=== PATIENT | female | born 1995 | race Hispanic/Latino ===

== ENCOUNTER 2019-04-09 01:34 | Emergency (ER) | payer SELFPAY ==
--- OUTSIDE RECORDS SUMMARY | 2019-04-09 01:36 | XMS REPORT ---
:1995 [facility] [address] [place] [address] Care Team Providers Name Role Phone Unavailable Unavailable Unavailable Problems This patient has no known problems. Allergies, Adverse Reactions, Alerts This patient has no known allergies or adverse reactions. Medications This patient has no known medications.
[2019-04-09 02:21] LABS: Urine Bacteria <20 /HPF (<20); Urine Culture Reflex Order NOT NEEDED; Urine RBC <5 /HPF (NONE SEEN)
[2019-04-09 02:22] LABS: Urine Blood 3+ (NEG); Urine Glucose NEGATIVE (NEG); Urine Protein NEGATIVE (NEG); Urine Specific Gravity <1.005 (1.005-1.030); Urine pH 6.5 (5.0-7.0)
--- NOTE | 2019-04-09 02:38 | EDPHYS ---
Physician Documentation [facility] Name: Barbara Yin Age: 23 yrs Sex: Female : 1995 Arrival Date: 04/09/2019 Time: 01:36 Bed 18 Private MD: ED Physician Adan Marie HPI: 04/09 02:00 This 23 yrs old Female presents to ER via Unassigned with complaints of Pain la1 With Urination. 02:00 Onset: The symptoms/episode began/occurred yesterday. Associated signs and symptoms: la1 Pertinent positives: dysuria, Pertinent negatives: congestion, constipation, cough, fever. Modifying factors: The patient symptoms are alleviated by nothing, the patient symptoms are aggravated by urinating. The patient has not recently seen a physician. pt reports urinary urgency and discomfort. 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 - Social history:: Smoking status: Patient/guardian denies using tobacco, never smoked. - Ebola Screening: : No symptoms or risks identified at this time. ROS: 02:02 Constitutional: Negative for fever, chills, and weight loss, Eyes: Negative for injury, la1 pain, redness, and discharge, ENT: Negative for injury, pain, and discharge, Neck: Negative for injury, pain, and swelling, Cardiovascular: Negative for chest pain, palpitations, and edema, Respiratory: Negative for shortness of breath, cough, wheezing, and pleuritic chest pain, Abdomen/GI: Negative for abdominal pain, nausea, vomiting, diarrhea, and constipation, Back: Negative for injury and pain, MS/Extremity: Negative for injury and deformity. 02:02 : Positive for urinary symptoms. Exam: 02:03 Constitutional: This is a well developed, well nourished patient who is awake, alert, la1 and in no acute distress. Head/Face: Normocephalic, atraumatic. Eyes: Pupils equal round and reactive to light, extra-ocular motions intact. Lids and lashes normal. Conjunctiva and sclera are non-icteric and not injected. Cornea within normal limits. Periorbital areas with no swelling, redness, or edema. Cardiovascular: Regular rate and rhythm with a normal S1 and S2. No gallops, murmurs, or rubs. Normal PMI, no JVD. No pulse deficits. Respiratory: Lungs have equal breath sounds bilaterally, clear to auscultation . No rales, rhonchi or wheezes noted. No increased work of breathing, no retractions or nasal flaring. Abdomen/GI: Soft, non-tender, with normal bowel sounds. No distension or tympany. No guarding or rebound. No evidence of tenderness throughout. Back: No spinal tenderness. No costovertebral tenderness. Full range of motion. Vital Signs: 01:45 BP 117 / 67; Pulse 83; Resp 17 S; Temp 98.2(O); Pulse Ox 98% on R/A; Weight 81.65 kg cc3 (R); Height 5 ft. 5 in. (165.10 cm) (R); Pain 6/10; 02:35 BP 115 / 64; Pulse 85; Resp 16 S; Pulse Ox 98% on R/A; cc3 01:45 Body Mass Index 29.95 (81.65 kg, 165.10 cm) cc3 MDM: 02:00 Patient medically screened. la1 02:39 Data reviewed: vital signs, nurses notes, lab test result(s), and as a result, I will la1 discharge patient. Data interpreted: Pulse oximetry: on room air is 98 %. Interpretation: normal. Counseling: I had a detailed discussion with the patient and/or guardian regarding: the historical points, exam findings, and any diagnostic results supporting the discharge/admit diagnosis, lab results, radiology results, the need for outpatient follow up, a family practitioner. 04/09 01:57 Order name: Urine Dipstick--Ancillary (enter results); Complete Time: 02:37 bb 04/09 01:58 Order name: Test, Serum; Complete Time: 02:37 bb 04/09 01:39 Order name: Urine Dipstick-Ancillary (obtain specimen); Complete Time: 01:58 la1 04/09 01:39 Order name: Urine Test (obtain specimen); Complete Time: 01:58 la1 04/09 01:58 Order name: Urine Microscopic Only; Complete Time: 02:37 la1 Administered Medications: No medications were administered Disposition: 04/09/19 02:38 Discharged to Home. Impression: Acute cystitis. - Condition is Stable. - Discharge Instructions: Dysuria, Urinary Tract Infection, Adult. - Prescriptions for Pyridium 200 mg Oral Tablet - take 1 tablet by ORAL route every 8 hours for 3 days; 9 tablet. Macrobid 100 mg Oral Capsule - take 1 capsule by ORAL route every 12 hours for 7 days; 14 capsule. - Medication Reconciliation Form, Thank You Letter, Antibiotic Education, Work release form form. - Follow up: Private Physician; When: 2 - 3 days; Reason: Recheck today's complaints, Re-evaluation by your physician. - Problem is new. - Symptoms have improved. Addendum: 04/10/2019 09:28 Co-signature as Attending Physician, Adan Marie MD I agree with the assessment and c leyva plan of care. Signatures: Dispatcher [employer] Adan Kearney MD MD cha Attema, Lee, DRIP MOLDER-C DRIP MOLDER-Cla1 Sangita Musa cc3 Corrections: (The following items were deleted from the chart) 04/09 03:08 02:38 04/09/2019 02:38 Discharged to Home. Impression: Acute cystitis. Condition is cc3 Stable. Forms are Medication Reconciliation Form, Thank You Letter, Antibiotic Education, Prescription Opioid Use. Follow up: Private Physician; When: 2 - 3 days; Reason: Recheck today's complaints, Re-evaluation by your physician. Problem is new. Symptoms have improved. la1
--- NOTE | 2019-04-09 02:38 | ER ---
Nurse's Notes [facility] Name: Barbara Yin Age: 23 yrs Sex: Female : 1995 Arrival Date: 04/09/2019 Time: 01:36 Bed 18 Private MD: Diagnosis: Acute cystitis Presentation: 04/09 01:45 Presenting complaint: Patient states: "Since Wednesday morning, I started to have burning cc3 feeling with urination and frequency of urination". Transition of care: patient was not received from another setting of care. Onset of symptoms was April 07, 2019. Risk Assessment: Do you want to hurt yourself or someone else? Patient reports no desire to harm self or others. Initial Sepsis Screen: Does the patient meet any 2 criteria? No. Patient's initial sepsis screen is negative. Does the patient have a suspected source of infection? Yes: Dysuria/Frequency/Urgency/UTI. Care prior to arrival: None. 01:45 Method Of Arrival: Ambulatory cc3 01:45 Acuity: CYNDIE 4 cc3 Triage Assessment: 01:45 General: Appears in no apparent distress. comfortable, Behavior is calm, cooperative, cc3 appropriate for age. Pain: Complains of pain in burning with urination. 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 - Social history:: Smoking status: Patient/guardian denies using tobacco, never smoked. - Ebola Screening: : No symptoms or risks identified at this time. Screenin:45 Abuse screen: Denies threats or abuse. Denies injuries from another. Nutritional cc3 screening: No deficits noted. Tuberculosis screening: No symptoms or risk factors identified. Fall Risk Ambulatory Aid- None/Bed Rest/Nurse Assist (0 pts). Gait- Normal/Bed Rest/Wheelchair (0 pts) Mental Status- Oriented to own ability (0 pts). Assessment: 03:00 Reassessment: Patient appears in no apparent distress at this time. Patient and/or cc3 family updated on plan of care and expected duration. Pain level reassessed. Patient is alert, oriented x 3, equal unlabored respirations, skin warm/dry/pink. OFFICE CLIN ASST Giovana discharged the patient home with prescriptions given. No IV cannula in situ. Patient left ER vitally stable and ambulatory. No valuables left in the patient's room. Patient states feeling better. Patient states symptoms have improved. Vital Signs: 01:45 BP 117 / 67; Pulse 83; Resp 17 S; Temp 98.2(O); Pulse Ox 98% on R/A; Weight 81.65 kg cc3 (R); Height 5 ft. 5 in. (165.10 cm) (R); Pain 6/10; 02:35 BP 115 / 64; Pulse 85; Resp 16 S; Pulse Ox 98% on R/A; cc3 01:45 Body Mass Index 29.95 (81.65 kg, 165.10 cm) cc3 ED Course: 01:36 Patient arrived in ED. cl3 01:37 Mukesh Akhtar [facility]-C [facility]. la1 01:37 Adan Marie MD is Attending Physician. la1 01:45 Sangita Musa is Primary Nurse. cc3 01:45 Patient has correct armband on for positive identification. Bed in low position. Call cc3 light in reach. Side rails up X2. Pulse ox on. NIBP on. 01:45 Arm band placed on right wrist. Patient notified of wait time. cc3 02:08 Initial lab(s) drawn, by me, sent to lab. Urine collected:. kj1 02:17 Triage completed. cc3 03:00 No provider procedures requiring assistance completed. Patient did not have IV access cc3 during this emergency room visit. Administered Medications: No medications were administered Outcome: 02:38 Discharge ordered by . la1 03:00 Discharged to home ambulatory. cc3 03:00 Condition: stable 03:00 Discharge instructions given to patient, Instructed on discharge instructions, follow up and referral plans. medication usage, Demonstrated understanding of instructions, follow-up care, medications, Prescriptions given X 2. 03:08 Patient left the ED. cc3 Signatures: Mukesh Akhtar FNP-C FNP-Cla1 Sangita Musa cc3 Charmaine Cisneros kj1 Sharath Grimes cl3
[2019-04-09 05:51] VITALS: BP 117/67; TEMP 98.2; O2SAT 98
== END 2019-04-09 03:08 | disposition home or self-care (01) ==
LOC: ER 01:34
DX: N30.00 Acute cystitis without hematuria (principal)
CPT/HCPCS: 36415; 81003; 81015; 84703; 99283

== ENCOUNTER 2019-10-12 12:11 | Emergency (ER) | payer SELFPAY ==
--- OUTSIDE RECORDS SUMMARY | 2019-10-12 12:38 | XMS REPORT | Continuity of Care Document ---
:1995 Author Organization [facility] t Address [address] [place] [address] [address] [place] [address] Care Team Providers Name Role Phone Unavailable Unavailable Unavailable Problems This patient has no known problems. Allergies, Adverse Reactions, Alerts This patient has no known allergies or adverse reactions. Medications This patient has no known medications. Procedures This patient has no known procedures. Results This patient has no known results.
--- NOTE | 2019-10-12 12:39 | ER ---
Nurse's Notes [facility] Name: Barbara Yin Age: 24 yrs Sex: Female : 1995 Arrival Date: 10/12/2019 Time: 12:12 Bed 11 Private MD: Diagnosis: Conjunctivitis Presentation: 10/11 12:20 Chief complaint: Left eye redness and burning upon waking today. Denies injury. ll1 Coronavirus screen: Proceed with normal triage. Ebola Screen: No symptoms or risks identified at this time. Initial Sepsis Screen: Does the patient meet any 2 criteria? No. Patient's initial sepsis screen is negative. Does the patient have a suspected source of infection? No. Patient's initial sepsis screen is negative. Risk Assessment: Do you want to hurt yourself or someone else? Patient reports no desire to harm self or others. Onset of symptoms was October 12, 2019. 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 - Social history:: Smoking status: Patient denies any tobacco usage or history of. Screenin:27 Abuse screen: Denies threats or abuse. Denies injuries from another. Nutritional hb screening: No deficits noted. Tuberculosis screening: No symptoms or risk factors identified. Fall Risk None identified. Vital Signs: 12:20 BP 128 / 75; Pulse 88; Resp 16; Temp 97.9; Pulse Ox 100% on R/A; Weight 86.18 kg; ll1 Height 5 ft. 5 in. (165.10 cm); Pain 4/10; 12:20 Body Mass Index 31.62 (86.18 kg, 165.10 cm) ll1 ED Course: 12:12 Patient arrived in ED. fj1 12:19 Esperanza Cisneros [facility]. kb 12:19 Kevan Fry MD is Attending Physician. kb 12:21 Triage completed. ll1 12:22 Arm band placed on. ll1 13:27 Patient has correct armband on for positive identification. hb 13:27 No provider procedures requiring assistance completed. Patient did not have IV access hb during this emergency room visit. Administered Medications: No medications were administered Outcome: 12:38 Discharge ordered by . duarte 13:27 Discharged to home ambulatory. hb 13:27 Condition: stable 13:27 Discharge instructions given to patient, Instructed on discharge instructions, follow up and referral plans. medication usage, Demonstrated understanding of instructions, follow-up care, medications, Prescriptions given X 1. 13:27 Patient left the ED. hb Signatures: Esperanza Cisneros, SHOE DRESSER-C SHOE DRESSER-Ckb Ita Conde, RN RN Samir Macario fj1 Nisha Grimes RN RN ll1
--- NOTE | 2019-10-12 12:39 | EDPHYS ---
Physician Documentation [facility] Name: Barbara Yin Age: 24 yrs Sex: Female : 1995 Arrival Date: 10/12/2019 Time: 12:12 Bed 11 Private MD: ED Physician Kevan Fry HPI: 10/11 12:37 This 24 yrs old Female presents to ER via Ambulatory with complaints of kb Redness of Eye. 12:37 The patient is experiencing matting or discharge, pain, redness, The patient sustained kb None. to the left eye, caused by an unknown mechanism. Onset: The symptoms/episode began/occurred 3 day(s) ago. Duration: the symptoms are continuous. Aggravated by nothing. Alleviated by nothing. Associated signs and symptoms: Pertinent positives: None. Patient does not utilize any form of vision correction. Severity of symptoms: At their worst the symptoms were mild moderate in the emergency department the symptoms are unchanged. The patient has not experienced similar symptoms in the past. The patient has not recently seen a physician. 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 - Social history:: Smoking status: Patient denies any tobacco usage or history of. ROS: 12:36 Constitutional: Negative for fever, chills, and weight loss, ENT: Negative for injury, kb pain, and discharge, Cardiovascular: Negative for chest pain, palpitations, and edema, Respiratory: Negative for shortness of breath, cough, wheezing, and pleuritic chest pain, Abdomen/GI: Negative for abdominal pain, nausea, vomiting, diarrhea, and constipation, MS/Extremity: Negative for injury and deformity, Skin: Negative for injury, rash, and discoloration, Neuro: Negative for headache, weakness, numbness, tingling, and seizure. 12:36 Eyes: Positive for discharge, pain, redness. Exam: 12:36 Constitutional: This is a well developed, well nourished patient who is awake, alert, kb and in no acute distress. Head/Face: Normocephalic, atraumatic. ENT: Nares patent. No nasal discharge, no septal abnormalities noted. Tympanic membranes are normal and external auditory canals are clear. Oropharynx with no redness, swelling, or masses, exudates, or evidence of obstruction, uvula midline. Mucous membranes moist. Neck: Trachea midline, no thyromegaly or masses palpated, and no cervical lymphadenopathy. Supple, full range of motion without nuchal rigidity, or vertebral point tenderness. No Meningismus. Chest/axilla: Normal chest wall appearance and motion. Nontender with no deformity. No lesions are appreciated. Cardiovascular: Regular rate and rhythm with a normal S1 and S2. No gallops, murmurs, or rubs. Normal PMI, no JVD. No pulse deficits. Respiratory: Lungs have equal breath sounds bilaterally, clear to auscultation and percussion. No rales, rhonchi or wheezes noted. No increased work of breathing, no retractions or nasal flaring. Abdomen/GI: Soft, non-tender, with normal bowel sounds. No distension or tympany. No guarding or rebound. No evidence of tenderness throughout. Skin: Warm, dry with normal turgor. Normal color with no rashes, no lesions, and no evidence of cellulitis. MS/ Extremity: Pulses equal, no cyanosis. Neurovascular intact. Full, normal range of motion. Neuro: Awake and alert, GCS 15, oriented to person, place, time, and situation. Cranial nerves II-XII grossly intact. Motor strength 5/5 in all extremities. Sensory grossly intact. Cerebellar exam normal. Normal gait. 12:36 Eyes: Periorbital structures: appear normal, Pupils: equal, round, and reactive to light and accomodation, Extraocular movements: intact throughout, Conjunctiva: exudate, in the left eye, injected, in the left eye. Vital Signs: 12:20 BP 128 / 75; Pulse 88; Resp 16; Temp 97.9; Pulse Ox 100% on R/A; Weight 86.18 kg; ll1 Height 5 ft. 5 in. (165.10 cm); Pain 4/10; 12:20 Body Mass Index 31.62 (86.18 kg, 165.10 cm) ll1 MDM: 12:28 Patient medically screened. kb 12:36 Data reviewed: vital signs, nurses notes. Data interpreted: Pulse oximetry: on room air kb is 100 %. Interpretation: normal. Counseling: I had a detailed discussion with the patient and/or guardian regarding: the historical points, exam findings, and any diagnostic results supporting the discharge/admit diagnosis, the need for outpatient follow up, an opthalmologist, to return to the emergency department if symptoms worsen or persist or if there are any questions or concerns that arise at home. Administered Medications: No medications were administered Disposition: 18:44 Co-signature as Attending Physician, Kevan Fry MD I agree with the assessment and kdr plan of care. Disposition: 10/12/19 12:38 Discharged to Home. Impression: Conjunctivitis. - Condition is Stable. - Discharge Instructions: Bacterial Conjunctivitis, [id number]. - Prescriptions for Erythromycin 5 mg/gram (0.5 %) Ophthalmic Ointment - apply 1 centimeter by OPHTHALMIC route 2-3 times daily for 7 days; 1 tube. - Medication Reconciliation Form, Thank You Letter, Antibiotic Education, Prescription Opioid Use form. - Follow up: Emergency Department; When: As needed; Reason: Worsening of condition. Follow up: Private Physician; When: 2 - 3 days; Reason: Recheck today's complaints, Continuance of care, Re-evaluation by your physician. Signatures: Esperanza Cisneros, TYING MACHINE OPERATOR-C TYING MACHINE OPERATOR-Rylanb Kevan Fry MD MD [facility] Ita Conde, ELVA RN Nisha Grimes RN RN ll1 Corrections: (The following items were deleted from the chart) 13:27 12:38 10/12/2019 12:38 Discharged to Home. Impression: Conjunctivitis. Condition is hb Stable. Forms are Medication Reconciliation Form, Thank You Letter, Antibiotic Education, Prescription Opioid Use. Follow up: Emergency Department; When: As needed; Reason: Worsening of condition. Follow up: Private Physician; When: 2 - 3 days; Reason: Recheck today's complaints, Continuance of care, Re-evaluation by your physician. kb
[2019-10-12 13:34] VITALS: BP 128/75; TEMP 97.9; O2SAT 100
== END 2019-10-12 13:27 | disposition home or self-care (01) ==
LOC: ER 12:11
DX: H10.9 Unspecified conjunctivitis (principal)
CPT/HCPCS: 99282

== ENCOUNTER 2022-12-14 10:22 | Emergency (ER) | payer OTHER, SELFPAY ==
--- OUTSIDE RECORDS SUMMARY | 2022-12-14 10:30 | XMS REPORT | Continuity of Care Document ---
:1995 Author Organization [facility] t Address [address] [place] [address] Care Team Providers Name Role Phone LISHA EDUARDO Primary Care Physician Unavailable BLAYNE GALINDO Attending Clinician Unavailable LISHA EDUARDO Attending Clinician Unavailable BEATRIZ ANGLIN Attending Clinician Unavailable Nurse, [facility] Attending Clinician Unavailable Beatriz Anglin PA-C Attending Clinician Blayne Galindo MD Attending Clinician Doctor Unassigned, [place] Attending Clinician Unavailable Pob, [facility] Main Attending Clinician Unavailable JANY LOMBARDO Attending Clinician Unavailable JANY LOMBARDO Attending Clinician Unavailable Sonia Robertson MA Attending Clinician Unavailable 2, [facility] Lab Attending Clinician Unavailable Ultrasound, [facility] Mf Attending Clinician Unavailable Yong Ye MD, [place] Attending Clinician [phone] SYDNEY ELLINGTON Attending Clinician Unavailable Ultrasound, [facility] Attending Clinician Unavailable Merritt Bhakta MD Attending Clinician MERRITT BHAKTA Attending Clinician Unavailable MERRITT BHAKTA Attending Clinician Unavailable 2, [facility] Usg Room Attending Clinician Unavailable Di Ely MD Attending Clinician [phone] DI ELY Attending Clinician Unavailable Lisha Chen Attending Clinician [phone] Case RNLisbet Attending Clinician Unavailable BRITT BROWN Attending Clinician Unavailable Britt Chavez Attending Clinician BLAYNE GALINDO Admitting Clinician Unavailable Blayne Galindo MD Admitting Clinician Payers Payer Name Policy Type Policy Number Effective Date Expiration Date [facility] [id number] 2021 CHOICE [place] STAR 00:00:00 MEDICAID PENDING PENDING 2021 00:00:00 MEDICAID [facility] [place] [facility] [id number] 2021 00:00:00 Problems Condition Condition Condition Status Onset Resolution Last Treating Co mments Source Name Details Category Date Date Treatment Clinician Date Liveborn Liveborn Disease Active Unive rs infant, of , of 2-28 it y of ferreira ferreira 00:00: Bernard s , , 00 Me dical born in born in [facility] by vaginal by vaginal delivery delivery Uterine Uterine Disease Active Univers contractio contractio 2-25 it y of ns ns 00:00: [address] [place] [id number] 39 weeks 39 weeks Disease Active Unive rs gestation gestation 2-25 ity of of of 00:00: [place] [address] [facility] Low back Low back Disease Active 2021-05 Unive rs pain pain 2-21 ity of during during 00:00: [place] 00 [facility] in third in third Branch trimester trimester Supervisio Supervisio Disease Active U nivers n of high n of high 7-19 ity of risk risk 00:00: [place] , , 00 Me dical antepartum antepartum Br anch Primigravi Primigravi Disease Active U nivers da in da in 7-19 ity of first first 00:00: [place] trimester trimester 00 [facility] Nausea Nausea Disease Active Univers without without 7-19 ity of vomiting vomiting 00:00: [address] Obesity in Obesity in Disease Active U nivers 7-19 ity of 00:00: [address] Obesity Obesity Disease Active Univers (BMI (BMI 7-19 ity of 30-39.9) 30-39.9) 00:00: [address] Chlamydia Chlamydia Disease Active Uni vers 6-16 ity of 00:00: [address] Obesity Obesity Disease Active Univers (BMI (BMI 6-14 ity of 30.0-34.9) 30.0-34.9) [place] 00 [place] Encounter Encounter Disease Active Uni vers for other for other 2-21 ity of general general 00:00: [place] counseling counseling 00 Me dical or advice or advice Bran ch on on contracept contracept ion ion Allergies, Adverse Reactions, Alerts Allergy Allergy Status Severity Reaction(s) Onset Inactive Treating Comm ents Source Name Type Date Date Clinician NO KNOWN Drug Active Univers ALLERGIE Class ity of S [facility] Social History Social Habit Start Date Stop Date Quantity Comments Source ASSERTION 2021-10-13 [facility] 00:00:00 [facility] Exposure to 2022-09-20 2022-09-30 Not sure [facility] SARS-CoV-2 00:00:00 10:17:00 [facility] (event) [place] Alcohol intake 2022-09-30 2022-09-30 0 /d [facility] 00:00:00 00:00:00 [facility] Tobacco use and 2021-11-18 2021-11-18 Smokeless tobacco Un iversity of exposure 00:00:00 00:00:00 non-user [facility] Sex Assigned At [birth year] Universit y of 00:00:00 00:00:00 [facility] Smoking Status Start Date Stop Date Source Never smoked tobacco [facility] Medications Ordered Filled Start Stop Current Ordering Indication Dosage Frequency Signature Comments Components Source Medication Medication Date Date Medication? Clinician (SIG) Name Name medroxyPROG 2022- No [id number] 150mg Univers ESTERone 09-30 ity of (DEPO-PROVE 16:30: 15:51 [place] RA) syringe 00 :00 Medical 150 mg Branch medroxyPROG 2022- No [id number] 150mg 150 mg, Univers ESTERone 09-30 Intramuscu ity of (DEPO-PROVE 16:30: 15:51 lar, ONCE, [place] RA) syringe 00 :00 1 dose, On Me dical 150 mg Wed Branch 09/30/22 at 1130, Routine medroxyPROG Yes 150mg 150 mg, Un omar ESTERone 3-01 Intramuscu ity o f (DEPO-PROVE 17:30: lar, [place] RA) 00 [id number], Medical injection First dose Bran ch 150 mg on 07/01/22 at 1130, Until Discontinu ed, Routine Yes [id number] 1{tbl} Take 1 Univers vitamin 3-01 tablet by ity of w/FA tablet 00:00: mouth in [place] 00 the Medical morning. Branch docusate Yes [id number] 200mg Take 2 U nivers 100 mg 3-01 capsules ity of capsule 00:00: by mouth [place] 00 once daily Medical as needed Branch for Constipati on. ferrous Yes [id number] 325mg Take 1 [place] o[place] sulfate 325 3-01 tablet by ity of mg (65 mg 00:00: [place] iron[place] 00 the Medical tablet morning Branch and 1 tablet in the evening. ibuprofen Yes [id number] 600mg Take 1 Univers 600 mg 3-01 tablet by ity of tablet 00:00: mouth [place] 00 every 6 Medical (six) Branch hours as needed (Pain). Take with food or milk. Yes [id number] 1{tbl} Take 1 Univers vitamin 3-01 tablet by ity of w/FA tablet 00:00: mouth in [place] 00 the Medical morning. Branch docusate Yes [id number] 200mg Take 2 U nivers 100 mg 3-01 capsules ity of capsule 00:00: by mouth [place] 00 once daily Medical as needed Branch for Constipati on. ferrous Yes [id number] 325mg Take 1 [place] o[place] sulfate 325 3-01 tablet by ity of mg (65 mg 00:00: [place] iron[place] 00 the Medical tablet morning Branch and 1 tablet in the evening. ibuprofen Yes [id number] 600mg Take 1 Univers 600 mg 3-01 tablet by ity of tablet 00:00: mouth [place] 00 every 6 Medical (six) Branch hours as needed (Pain). Take with food or milk. 0 Yes [id number] 1{tbl} Take 1 Univers vitamin 3-01 tablet by ity of w/FA tablet 00:00: mouth in [place] 00 the Medical morning. Branch docusate 0 Yes [id number] 200mg Take 2 U nivers 100 mg 3-01 capsules ity of capsule 00:00: by mouth [place] 00 once daily Medical as needed Branch for Constipati on. ferrous 0 Yes [id number] 325mg Take 1 [place] o[place] sulfate 325 3-01 tablet by ity of mg (65 mg 00:00: [place] iron[place] 00 the Medical tablet morning Branch and 1 tablet in the evening. ibuprofen Yes [id number] 600mg Take 1 Univers 600 mg 3-01 tablet by ity of tablet 00:00: mouth [place] 00 every 6 Medical (six) Branch hours as needed (Pain). Take with food or milk. 0 Yes [id number] 1{tbl} Take 1 Univers vitamin 3-01 tablet by ity of w/FA tablet 00:00: mouth in [place] 00 the Medical morning. Branch docusate Yes [id number] 200mg Take 2 U nivers 100 mg 3-01 capsules ity of capsule 00:00: by mouth [place] 00 once daily Medical as needed Branch for Constipati on. ferrous 2022-0 Yes [id number] 325mg Take 1 [place] sulfate 325 3-01 tablet by ity of mg (65 mg 00:00: [place] iron[place] 00 the Medical tablet morning Branch and 1 tablet in the evening. ibuprofen 0 Yes [id number] 600mg Take 1 Univers 600 mg 3-01 tablet by ity of tablet 00:00: mouth [place] 00 every 6 Medical (six) Branch hours as needed (Pain). Take with food or milk. 2022-0 Yes [id number] 1{tbl} Take 1 Univers vitamin 3-01 tablet by ity of w/FA tablet 00:00: mouth in [place] 00 the Medical morning. Branch docusate Yes [id number] 200mg Take 2 U nivers 100 mg 3-01 capsules ity of capsule 00:00: by mouth [place] 00 once daily Medical as needed Branch for Constipati on. ferrous 2022-0 Yes [id number] 325mg Take 1 [place] sulfate 325 3-01 tablet by ity of mg (65 mg 00:00: [place] iron[place] 00 the Medical tablet morning Branch and 1 tablet in the evening. ibuprofen 0 Yes [id number] 600mg Take 1 Univers 600 mg 3-01 tablet by ity of tablet 00:00: mouth [place] 00 every 6 Medical (six) Branch hours as needed (Pain). Take with food or milk. 0 Yes [id number] 1{tbl} Take 1 Univers vitamin 3-01 tablet by ity of w/FA tablet 00:00: mouth in [place] 00 the Medical morning. Branch docusate Yes [id number] 200mg Take 2 U nivers 100 mg 3-01 capsules ity of capsule 00:00: by mouth [place] 00 once daily Medical as needed Branch for Constipati on. ferrous 0 Yes [id number] 325mg Take 1 [place] o[place] sulfate 325 3-01 tablet by ity of mg (65 mg 00:00: [place] iron[place] 00 the Medical tablet morning Branch and 1 tablet in the evening. ibuprofen 0 Yes [id number] 600mg Take 1 Univers 600 mg 3-01 tablet by ity of tablet 00:00: mouth [place] 00 every 6 Medical (six) Branch hours as needed (Pain). Take with food or milk. 2022-0 Yes [id number] 1{tbl} Take 1 Univers vitamin 3-01 tablet by ity of w/FA tablet 00:00: mouth in [place] 00 the Medical morning. Branch docusate 0 Yes [id number] 200mg Take 2 U nivers 100 mg 3-01 capsules ity of capsule 00:00: by mouth [place] 00 once daily Medical as needed Branch for Constipati on. ferrous 2022-0 Yes [id number] 325mg Take 1 Un o[place] sulfate 325 3-01 tablet by ity of mg (65 mg 00:00: [place] iron[place] 00 the Medical tablet morning Branch and 1 tablet in the evening. ibuprofen Yes [id number] 600mg Take 1 Univers 600 mg 3-01 tablet by ity of tablet 00:00: mouth [place] 00 every 6 Medical (six) Branch hours as needed (Pain). Take with food or milk. rho(D) 0 Yes 300ug 300 mcg, Univer s immune 06-30 Intramuscu ity of globulin 17:06: lar, ONCE, [place] (RHOGAM) 47 For 1 Medical syringe 300 dose, Branch mcg Conditiona l, Routine witch [place] Yes Topical, Un omar (TUCKS) 50 2-28 Q4HPRN, ity of % topical 17:06: [place] pad 41 on [facility] 06/30/22 at Branch 1106, Until Discontinu ed, Routine, rectal/hem orrhoidal pain HYDROcodone 0 Yes 1{tbl} 1 tablet, Univers -acetaminop 06-30 Oral, ity of hen (NORCO 17:06: Q6HPRN, [place] 5) 5-325 mg 41 Starting Medi celine tablet 1 on [facility] tablet 06/30/22 at 1106, Until Discontinu ed, Routine, Pain (scale 7-10) ibuprofen 0 Yes 600mg 600 mg, Univ ers (IBU) 06-30 Oral, ity of tablet 600 17:06: Q6HPRN, [place] mg 41 Starting Medical on [facility] Branch 06/30/22 at 1106, Until Discontinu ed, Routine, Pain (scale 4-6) acetaminoph 0 Yes 650mg 650 mg, Un omar en 06-30 Oral, ity of (TYLENOL) 17:06: Q6HPRN, [place] tablet 650 41 Starting Medic al mg on [facility] 06/30/22 at 1106, Until Discontinu ed, Routine, Pain (scale 1-3) diphenhydrA 0 Yes 25mg 25 mg, Univ ers MINE 06-30 Oral, ity of (BENADRYL) 17:06: Q6HPRN, [place] tablet 25 41 Starting Medica l mg on [facility] 06/30/22 at 1106, Until Discontinu ed, Routine, Sleep, Itching ondansetron 0 Yes 4mg 4 mg, Slow Univers (ZOFRAN 06-30 IV Push, ity of (PF)) 17:06: Q8HPRN, [place] injection 4 41 Starting Medi celine mg on 06/30/22 at 1106, Until Discontinu ed, Routine, Nausea and Vomiting (N/V) simethicone 2022-0 Yes 160mg 160 mg, Un omar (GAS RELIEF 06-30 Oral, ity of (SIMETHICON 17:06: PC+HSPRN, [place] E)) 41 Starting Medical chewable on Wed tablet 160 06/30/22 at mg 1106, Until Discontinu ed, Routine, Gas docusate Yes 200mg 200 mg, Unive rs (COLACE) 06-30 Oral, ity of capsule 200 17:06: QDAILYPRN, [place] mg 41 Starting Medical on Wed06/30/22 at 1106, Until Discontinu ed, Routine, Constipati on magnesium Yes 30mL 30 mL, Univer s hydroxide 06-30 Oral, ity of (MILK OF 17:06: QDAILYPRN, [place] MAGNESIA) 41 Starting Medica l 400 mg/5 mL on Wed [place] suspension 06/30/22 at 30 mL 1106, Until Discontinu ed, Routine, Constipati on benzocaine- 0 Yes Topical, Un omar menthol 06-30 PRN, ity of (DERMOPLAST 17:06: Starting [place] ) 20-0.5 % 41 on Medical topical 06/30/22 at Branch spray 1106, Until Discontinu ed, Routine, Perineum discomfort oxytocin 2022- No 2mU/min at 2-40 Un omar (PITOCIN) 06-30- mL/hr, IV ity of 30 units in 11:00: 17:06 Infusion, [place] NS 500 mL 00 :44 TITRATE, Medica l IV infusion Starting Bran ch on Wed06/30/22 at 0500, Until Wed06/30/22 at 1106, FABRICE misoprostol 2022- No 25ug 25 mcg, Un omar (CYTOTEC) 06-30 Oral, ity of quarter-tab 06:15: 06:56 ONCE, 1 [place] let 25 mcg 00 :00 dose, On Medic al Tue Branch 06/30/22 at 0015, Routine FENTanyl PF 2022- No 100ug 100 mcg, Univers (SUBLIMAZE 06-30 Slow IV ity o f (PF)) 06:09: 17:06 Push, [place] injection 34 :44 Q1HPRN, Medical 100 mcg Starting Branch on Wed06/30/22 at 0009, Until Wed06/30/22 at 1106, Routine, contractio n pain without an epidural and SVE < 8 cm and Cat I strip [id number] IV 2022- No 1000mL at 1-125 U nivers infusion 06-30 mL/hr, IV ity o f 1,000 mL 06:09: 17:06 Infusion, [place] 34 :44 TITRATE, Medical Starting Branch on Wed06/30/22 at 0009, Until Wed06/30/22 at 1106, Routine cephALEXin 2022- No [id number] 500mg Take 1 Univers 500 mg 2-22 06- capsule by ity of capsule 00:00: 05:59 mouth 4 [place] 00 :00 (four) Medical times Branch daily for 7 days. cephALEXin 2022-0 2022- No [id number] 500mg Take 1 Univers 500 mg 2-20 - capsule by ity of capsule 00:00: 05:59 mouth 4 [place] 00 :00 (four) Medical times Branch daily for 7 days. cephALEXin 2022-0 2022- No [id number] 500mg Take 1 Univers 500 mg 2-20 - capsule by ity of capsule 00:00: 05:59 mouth 4 [place] 00 :00 (four) Medical times Branch daily for 7 days. cephALEXin 2022-0 3- No [id number] 500mg Take 1 Univers 500 mg 2-20 - capsule by ity of capsule 00:00: 05:59 mouth 4 [place] 00 :00 (four) Medical times Branch daily for 7 days. cephALEXin 2022-0 2022- No [id number] 500mg Take 1 Univers 500 mg 2-20 - capsule by ity of capsule 00:00: 05:59 mouth 4 [place] 00 :00 (four) Medical times Branch daily for 7 days. cephALEXin 2022- No [id number] 500mg Take 1 Univers 500 mg 06-22 capsule by ity of capsule 00:00: 05:59 mouth 4 [place] 00 :00 (four) [facility] daily for 7 days. cephALEXin 2022- No [id number] 500mg Take 1 Univers 500 mg 06-22 capsule by ity of capsule 00:00: 05:59 mouth 4 [place] 00 :00 (four) [facility] daily for 7 days. cefTRIAXone 2022- No [id number] 500mg Univers (ROCEPHIN) 06-17 ity of injection 20:32: 20:33 [place] 500 mg 00 :00 [facility] cefTRIAXone 2022- No [id number] 500mg 500 mg, Univers (ROCEPHIN) 06-17 Intramuscu it y of injection 20:32: 20:33 [place], ONCE, [place] 500 mg 00 :00 1 dose, On [facility] Wed Branch 06/17/22 at 1445, FABRICE
Re ason for Anti-Infec tive: Documented Infection< br>Documen akash Infection Site: Other
O ther site: Gonorrhea< br>Dura tion of Therapy: Other (see Comments) cefTRIAXone 2022- No [id number] 500mg Univers (ROCEPHIN) 06-17 ity of injection 20:00: 20:30 [place] 500 mg 00 :20 [facility] azithromyci 2022- No [id number] 1000mg Take 2 Univers n 500 mg 2-16 06-16 tablets by ity of tablet 00:00: 05:59 mouth in [place] 00 :00 the Medical morning [place] for 1 day. azithromyci 2022- No [id number] 1000mg Take 2 Univers n 500 mg 2-14 -16 tablets by ity of tablet 00:00: 05:59 mouth in [place] 00 :[address] [facility] Branch for 1 day. azithromyci 2022- No [id number] 1000mg Take 2 Univers n 500 mg 2-14 -16 tablets by ity of tablet 00:00: 05:59 mouth in [place] 00 :00 the Medical morning Branch for 1 day. 2021- No Take by Unive rs vit 8-01 08-01 mouth. ity of no.124/iron 08:13: 00:00 [place] /folic 31 :00 Medical ( Branch VITAMIN ORAL) proMETHazin Yes [id number] 25mg Take 1 Univers e 25 mg 8-01 tablet by ity of tablet 00:00: mouth [place] 00 every 4 Medical (four) Branch hours as needed for Nausea and Vomiting (N/V). Yes [id number] 1{packe Take 1 Univers vit 8-01 t} Packet by ity of 33-iron-fol 00:00: mouth in [place] ic-dha 00 the Medical (SELECT-OB morning. Bran h + DHA) 29 mg iron-1 mg -250 mg combo pack proMETHazin Yes [id number] 25mg Take 1 Univers e 25 mg 8-01 tablet by ity of tablet 00:00: mouth [place] 00 every 4 Medical (four) Branch hours as needed for Nausea and Vomiting (N/V). Yes [id number] 1{packe Take 1 Univers vit 8-01 t} Packet by ity of 33-iron-fol 00:00: mouth in [place] ic-dha 00 the Medical (SELECT-OB morning. Bran h + DHA) 29 mg iron-1 mg -250 mg combo pack proMETHazin Yes [id number] 25mg Take 1 Univers e 25 mg 8-01 tablet by ity of tablet 00:00: mouth [place] 00 every 4 Medical (four) Branch hours as needed for Nausea and Vomiting (N/V). Yes [id number] 1{packe Take 1 Univers vit 8-01 t} Packet by ity of 33-iron-fol 00:00: mouth in [place] ic-dha 00 the Medical (SELECT-OB morning. Bran h + DHA) 29 mg iron-1 mg -250 mg combo pack proMETHazin Yes [id number] 25mg Take 1 Univers e 25 mg 8-01 tablet by ity of tablet 00:00: mouth [place] 00 every 4 Medical (four) Branch hours as needed for Nausea and Vomiting (N/V). Yes [id number] 1{packe Take 1 Univers vit 8-01 t} Packet by ity of 33-iron-fol 00:00: [place] in [place] [facility] 00 the Medical (SELECT-OB morning. [facility] h + [facility]) 29 mg iron-1 mg -250 mg combo pack proMETHazin Yes [id number] 25mg Take 1 Univers e 25 mg 8-01 tablet by ity of tablet 00:00: mouth [place] 00 every 4 Medical (four) Branch hours as needed for Nausea and Vomiting (N/V). Yes [id number] 1{packe Take 1 Univers vit 8-01 t} Packet by ity of 33-iron-fol 00:00: mouth in [place]-[facility] 00 the Medical (SELECT-OB morning. [facility] h + [facility]) 29 mg iron-1 mg -250 mg combo pack proMETHazin Yes [id number] 25mg Take 1 Univers e 25 mg 8-01 tablet by ity of tablet 00:00: mouth [place] 00 every 4 Medical (four) Branch hours as needed for Nausea and Vomiting (N/V). Yes [id number] 1{packe Take 1 Univers vit 8-01 t} Packet by ity of 33-iron-fol 00:00: mouth in [place] [facility] 00 the Medical (SELECT-OB morning. [facility] h + [facility]) 29 mg iron-1 mg -250 mg combo pack proMETHazin Yes [id number] 25mg Take 1 Univers e 25 mg 8-01 tablet by ity of tablet 00:00: mouth [place] 00 every 4 Medical (four) Branch hours as needed for Nausea and Vomiting (N/V). Yes [id number] 1{packe Take 1 Univers vit 8-01 t} Packet by ity of 33-iron-fol 00:00: mouth in [place] [facility] 00 the Medical (SELECT-OB morning. [facility] h + [facility]) 29 mg iron-1 mg -250 mg combo pack proMETHazin Yes [id number] 25mg Take 1 Univers e 25 mg 8-01 tablet by ity of tablet 00:00: mouth [place] 00 every 4 Medical (four) Branch hours as needed for Nausea and Vomiting (N/V). Yes [id number] 1{packe Take 1 Univers vit 8-01 t} Packet by ity of 33-iron-fol 00:00: mouth in [place] ic-dha 00 the Medical (SELECT-OB morning. [facility] h + [facility]) 29 mg iron-1 mg -250 mg combo pack proMETHazin Yes [id number] 25mg Take 1 Univers e 25 mg 8-01 tablet by ity of tablet 00:00: mouth [place] 00 every 4 Medical (four) Branch hours as needed for Nausea and Vomiting (N/V). Yes [id number] 1{packe Take 1 Univers vit 8-01 t} Packet by ity of 33-iron-fol 00:00: mouth in [place] [facility] 00 the Medical (SELECT-OB morning. [facility] h + DHA) 29 mg iron-1 mg -250 mg combo pack proMETHazin Yes [id number] 25mg Take 1 Univers e 25 mg 8-01 tablet by ity of tablet 00:00: mouth [place] 00 every 4 Medical (four) Branch hours as needed for Nausea and Vomiting (N/V). Yes [id number] 1{packe Take 1 Univers vit 8-01 t} Packet by ity of 33-iron-fol 00:00: mouth in [place] [facility] 00 the Medical (SELECT-OB morning. [facility] h + DHA) 29 mg iron-1 mg -250 mg combo pack proMETHazin Yes [id number] 25mg Take 1 Univers e 25 mg 8-01 tablet by ity of tablet 00:00: mouth [place] 00 every 4 Medical (four) Branch hours as needed for Nausea and Vomiting (N/V). 0 Yes [id number] 1{packe Take 1 Univers vit 8-01 t} Packet by ity of 33-iron-fol 00:00: mouth in [place] [facility] 00 the Medical (SELECT-OB morning. [facility] h + DHA) 29 mg iron-1 mg -250 mg combo pack proMETHazin 0 Yes [id number] 25mg Take 1 Univers e 25 mg 8-01 tablet by ity of tablet 00:00: mouth [place] 00 every 4 Medical (four) Branch hours as needed for Nausea and Vomiting (N/V). Yes [id number] 1{packe Take 1 Univers vit 8-01 t} Packet by ity of 33-iron-fol 00:00: mouth in [place] ic-dha 00 the Medical (SELECT-OB morning. Bran h + DHA) 29 mg iron-1 mg -250 mg combo pack proMETHazin Yes [id number] 25mg Take 1 Univers e 25 mg 8-01 tablet by ity of tablet 00:00: mouth [place] 00 every 4 Medical (four) Branch hours as needed for Nausea and Vomiting (N/V). 0 Yes [id number] 1{packe Take 1 Univers vit 8-01 t} Packet by ity of 33-iron-fol 00:00: mouth in [place] [facility] 00 the Medical (SELECT-OB morning. Bran h + DHA) 29 mg iron-1 mg -250 mg combo pack proMETHazin Yes [id number] 25mg Take 1 Univers e 25 mg 8-01 tablet by ity of tablet 00:00: mouth [place] 00 every 4 Medical (four) Branch hours as needed for Nausea and Vomiting (N/V). Yes [id number] 1{packe Take 1 Univers vit 8-01 t} Packet by ity of 33-iron-fol 00:00: mouth in [place] [facility] 00 the Medical (SELECT-OB morning. Bran h + DHA) 29 mg iron-1 mg -250 mg combo pack proMETHazin Yes [id number] 25mg Take 1 Univers e 25 mg 8-01 tablet by ity of tablet 00:00: mouth [place] 00 every 4 Medical (four) Branch hours as needed for Nausea and Vomiting (N/V). 0 Yes [id number] 1{packe Take 1 Univers vit 8-01 t} Packet by ity of 33-iron-fol 00:00: mouth in [place] [facility] 00 the Medical (SELECT-OB morning. Bran h + DHA) 29 mg iron-1 mg -250 mg combo pack proMETHazin 0 Yes [id number] 25mg Take 1 Univers e 25 mg 8-01 tablet by ity of tablet 00:00: mouth [place] 00 every 4 Medical (four) Branch hours as needed for Nausea and Vomiting (N/V). Yes [id number] 1{packe Take 1 Univers vit 8-01 t} Packet by ity of 33-iron-fol 00:00: mouth in [place] ic-dha 00 the Medical (SELECT-OB morning. Branc h + DHA) 29 mg iron-1 mg -250 mg combo pack Yes [id number] 1{packe Take 1 Univers vit 8-01 t} Packet by ity of 33-iron-fol 00:00: mouth in [place] ic-[place] 00 the Medical (SELECT-OB morning. Branc h + DHA) 29 mg iron-1 mg -250 mg combo pack Yes [id number] 1{packe Take 1 Univers vit 8-01 t} Packet by ity of 33-iron-fol 00:00: mouth in [place] ic-[place] 00 the Medical (SELECT-OB morning. Branc h + DHA) 29 mg iron-1 mg -250 mg combo pack Yes [id number] 1{packe Take 1 Univers vit 8-01 t} Packet by ity of 33-iron-fol 00:00: mouth in [place] ic-[place] 00 the Medical (SELECT-OB morning. Branc h + DHA) 29 mg iron-1 mg -250 mg combo pack Yes [id number] 1{packe Take 1 Univers vit 8-01 t} Packet by ity of 33-iron-fol 00:00: mouth in [place] ic-[place] 00 the Medical (SELECT-OB morning. Branc h + DHA) 29 mg iron-1 mg -250 mg combo pack Yes [id number] 1{packe Take 1 Univers vit 8-01 t} Packet by ity of 33-iron-fol 00:00: mouth in [place] ic-[place] 00 the Medical (SELECT-OB morning. Branc h + DHA) 29 mg iron-1 mg -250 mg combo pack Yes [id number] 1{packe Take 1 Univers vit 8-01 t} Packet by ity of 33-iron-fol 00:00: mouth in [place] ic-[place] 00 the Medical (SELECT-OB morning. Branc h + DHA) 29 mg iron-1 mg -250 mg combo pack Yes [id number] 1{packe Take 1 Univers vit 8-01 t} Packet by ity of 33-iron-fol 00:00: mouth in [place] ic-[place] 00 the Medical (SELECT-OB morning. Branc h + DHA) 29 mg iron-1 mg -250 mg combo pack Yes [id number] 1{packe Take 1 [facility] 8[facility] t} Packet by [facility] 33-iron-fol 00:00: mouth [place] [facility] 00 [facility] (SELECT-OB morning. Branc h + DHA) 29 mg iron-1 mg -250 mg combo pack Yes [id number] 1{packe Take 1 [facility] vit 8-01 t} Packet by [facility]-iron-fol 00:00: [place] [facility] 00 [facility] (SELECT-OB morning. Branc h + DHA) 29 mg iron-1 mg -250 mg combo pack Yes [id number] 1{packe Take 1 [facility] vit 8-01 t} Packet by [facility] 33-iron-fol 00:00: [place] [facility] 00 the [facility] (SELECT-OB morning. Branc h + DHA) 29 mg iron-1 mg -250 mg combo pack Yes [id number] 1{packe Take 1 [facility] vit 8-01 t} Packet by [facility] 33-iron-fol 00:00: [place] [facility] 00 [facility] (SELECT-OB morning. Branc h + DHA) 29 mg iron-1 mg -250 mg combo pack Yes [id number] 1{packe Take 1 [facility] vit 8-01 t} Packet by [facility] 33-iron-fol 00:00: mouth [place] ic[facility] 00 [facility] (SELECT-OB morning. Branc h + DHA) 29 mg iron-1 mg -250 mg combo pack Yes [id number] 1{packe Take 1 [facility] vit 8-01 t} Packet by [facility] 33-iron-fol 00:00: [place] ic[facility] 00 [facility] (SELECT-OB morning. Branc h + DHA) 29 mg iron-1 mg -250 mg combo pack Yes [id number] 1{packe Take 1 [facility] vit 8-01 t} Packet by [facility] 33-iron-fol 00:00: [place] [facility] 00 [facility] (SELECT-OB morning. Branc h + DHA) 29 mg iron-1 mg -250 mg combo pack Yes [id number] 1{packe Take 1 [facility] vit 8-01 t} Packet by [facility] 33-iron-fol 00:00: [place] ic-[facility] 00 the [facility] (SELECT-OB morning. Branc h + DHA) 29 mg iron-1 mg -250 mg combo pack Yes [id number] 1{packe Take 1 [facility] vit 8-01 t} Packet by [facility] 33-iron-fol 00:00: mouth [place] ic-[facility] 00 the [facility] (SELECT-OB morning. Branc h + DHA) 29 mg iron-1 mg -250 mg combo pack Yes [id number] 1{packe Take 1 [facility] vit 8-01 t} Packet by [facility] 33-iron-fol 00:00: [place] ic-[facility] 00 the [facility] (SELECT-OB morning. Branc h + DHA) 29 mg iron-1 mg -250 mg combo pack Yes [id number] 1{packe Take 1 [facility] vit 8-01 t} Packet by [facility] 33-iron-fol 00:00: [place] ic-[facility] 00 the [facility] (SELECT-OB morning. Branc h + DHA) 29 mg iron-1 mg -250 mg combo pack Yes [id number] 1{packe Take 1 [facility] vit 8-01 t} Packet by [facility] 33-iron-fol 00:00: [place] [facility] 00 [facility] (SELECT-OB morning. Branc h + DHA) 29 mg iron-1 mg -250 mg combo pack Yes [id number] 1{packe Take 1 [facility] vit 8-01 t} Packet by [facility] 33-iron-fol 00:00: [place] ic-[facility] 00 the [facility] (SELECT-OB morning. Branc h + DHA) 29 mg iron-1 mg -250 mg combo pack Yes [id number] 1{packe Take 1 [facility] vit 8-01 t} Packet by [facility] 33-iron-fol 00:00: [place] ic[facility] 00 the [facility] (SELECT-OB morning. Branc h + DHA) 29 mg iron-1 mg -250 mg combo pack Yes [id number] 1{packe Take 1 [facility] vit 8-01 t} Packet by [facility] 33-iron-fol 00:00: [place] ic[facility] 00 the [facility] (SELECT-OB morning. Branc h + DHA) 29 mg iron-1 mg -250 mg combo pack Yes [id number] 1{packe Take 1 [facility] vit 8-01 t} Packet by [facility] 33-iron-fol 00:00: [place] [facility] 00 [facility] (SELECT-OB morning. Branc h + DHA) 29 mg iron-1 mg -250 mg combo pack 3- No [id number] 1{packe Take 1 [facility] vit 8-01 03-01 t} Packet by [facility] 33-iron-fol 00:00: 00:00 [place] ic-dha 00 :00 the [facility] (SELECT-OB morning. Branc h + DHA) 29 mg iron-1 mg -250 mg combo pack proMETHazin 2021- No [id number] 25mg Take 1 Univers e 25 mg 8- 10-26 tablet by ity of tablet 00:00: 00:00 mouth [place] 00 :00 every 4 Medical (four) Branch hours as needed for Nausea and Vomiting (N/V). Immunizations Ordered Filled Immunization Date Status Comments [facility] e Immunization Name Name HPV9 2021-10-22 Completed University of 00:00:00 [facility] HPV9 2021-10-22 Completed University of 00:00:00 [facility] HPV9 2021-10-22 Completed University of 00:00:00 [facility] HPV9 2021-10-22 Completed University of 00:00:00 [facility] HPV9 2021-10-22 Completed University of 00:00:00 [facility] HPV9 2021-10-22 Completed [facility] of 00:00:00 [facility] HPV9 2021-10-22 Completed [facility] 00:00:00 [facility] HPV9 2021-10-22 Completed [facility] 00:00:00 [facility] HPV9 2021-10-22 Completed [facility] 00:00:00 [facility] HPV9 2021-10-22 Completed [facility] 00:00:00 [place] [facility] HPV9 2021-10-22 Completed [facility] 00:00:00 [facility] HPV9 2021-10-22 Completed [facility] 00:00:00 [place] [facility] HPV9 2021-10-22 Completed [facility] 00:00:00 [facility] HPV9 2021-10-22 Completed [facility] 00:00:00 [facility] HPV9 2021-10-22 Completed [facility] 00:00:00 [facility] HPV9 2021-10-22 Completed [facility] 00:00:00 [facility] HPV9 2021-10-22 Completed [facility] 00:00:00 [facility] HPV9 2021-10-22 Completed [facility] 00:00:00 [facility] HPV9 2021-10-22 Completed [facility] 00:00:00 [facility] HPV9 2021-10-22 Completed [facility] 00:00:00 [facility] HPV9 2021-10-22 Completed [facility] 00:00:00 [facility] HPV9 2021-10-22 Completed [facility] 00:00:00 [facility] HPV9 2021-10-22 Completed [facility] 00:00:00 [facility] HPV9 2021-10-22 Completed [facility] 00:00:00 [facility] HPV9 2021-10-22 Completed [facility] 00:00:00 [facility] HPV9 2021-10-22 Completed [facility] 00:00:00 [facility] HPV9 2021-10-22 Completed [facility] 00:00:00 [facility] HPV9 2021-10-22 Completed [facility] 00:00:00 [place] [facility] HPV9 2021-10-22 Completed [facility] 00:00:00 [facility] HPV9 2021-10-22 Completed [facility] 00:00:00 [facility] HPV9 2021-10-22 Completed [facility] 00:00:00 [place] [facility] HPV9 2021-10-22 Completed [facility] 00:00:00 [place] [facility] HPV9 2021-10-22 Completed [facility] 00:00:00 [facility] HPV9 2021-10-22 Completed University of 00:00:00 [facility] HPV9 2021-10-22 Completed University of 00:00:00 [facility] HPV9 2021-10-22 Completed University of 00:00:00 [facility] HPV9 2021-10-22 Completed University of 00:00:00 [facility] HPV9 2021-10-22 Completed University of 00:00:00 [facility] HPV9 2021-10-22 Completed [facility] of 00:00:00 [facility] HPV9 2021-10-22 Completed University of 00:00:00 [facility] HPV9 2021-10-22 Completed [facility] of 00:00:00 [facility] HPV9 2021-10-22 Completed University of 00:00:00 [facility] HPV9 2021-10-22 Completed University of 00:00:00 [facility] HPV9 2021-10-22 Completed University of 00:00:00 [facility] HPV9 2021-10-22 Completed University of 00[facility]00:00 [facility] HPV9 2021-10-22 Completed University of 00:00:00 [facility] HPV9 2021-10-22 Completed University of 00:00:00 [facility] SARS-COV-2 COVID-19 2020-10-23 Completed Unive rsity of MODERNA 12+ YRS 00:00:00 [facility] Branch SARS-COV-2 COVID-19 2020-10-23 Completed Unive rsity of MODERNA 12+ YRS 00:00:00 [facility] ical VACCINE Branch SARS-COV-2 COVID-19 2020-10-23 Completed Unive rsity of MODERNA 12+ YRS 00:00:00 [facility] VACCINE Branch SARS-COV-2 COVID-19 2020-10-23 Completed Unive rsity of MODERNA VACCINE 00:00:00 [facility] SARS-COV-2 COVID-19 2020-10-23 Completed Unive rsity of MODERNA VACCINE 00:00:00 [facility] SARS-COV-2 COVID-19 2020-10-23 Completed Unive rsity of MODERNA VACCINE 00:00:00 [facility] SARS-COV-2 COVID-19 2020-10-23 Completed Unive rsity of MODERNA VACCINE 00:00:00 [place] [facility] SARS-COV-2 COVID-19 2020-10-23 Completed Unive rsity of MODERNA VACCINE 00:00:00 [place] [facility] SARS-COV-2 COVID-19 2020-10-23 Completed Unive rsity of MODERNA VACCINE 00:00:00 [place] [facility] SARS-COV-2 COVID-19 2020-10-23 Completed Unive rsity of MODERNA VACCINE 00:00:00 [place] [facility] SARS-COV-2 COVID-19 2020-10-23 Completed Unive rsity of MODERNA 12+ YRS 00:00:00 [place] [facility] VACCINE Branch SARS-COV-2 COVID-19 2020-10-23 Completed Unive rsity of MODERNA 12+ YRS 00:00:00 [place] [facility] VACCINE Branch SARS-COV-2 COVID-19 2020-10-23 Completed Unive rsity of MODERNA 12+ YRS 00:00:00 [place] [facility] VACCINE Branch SARS-COV-2 COVID-19 2020-10-23 Completed Unive rsity of MODERNA 12+ YRS 00:00:00 [place] [facility] VACCINE Branch SARS-COV-2 COVID-19 2020-10-23 Completed Unive rsity of MODERNA 12+ YRS 00:00:00 [place] [facility] VACCINE Branch SARS-COV-2 COVID-19 2020-10-23 Completed Unive rsity of MODERNA 12+ YRS 00:00:00 [place] [facility] VACCINE Branch SARS-COV-2 COVID-19 2020-10-23 Completed Unive rsity of MODERNA 12+ YRS 00:00:00 [place] [facility] VACCINE Branch SARS-COV-2 COVID-19 2020-10-23 Completed Unive rsity of MODERNA 12+ YRS 00:00:00 [place] [facility] VACCINE Branch SARS-COV-2 COVID-19 2020-10-23 Completed Unive rsity of MODERNA 12+ YRS 00:00:00 [place] [facility] VACCINE Branch SARS-COV-2 COVID-19 2020-10-23 Completed Unive rsity of MODERNA 12+ YRS 00:00:00 [place] [facility] VACCINE Branch SARS-COV-2 COVID-19 2020-10-23 Completed Unive rsity of MODERNA 12+ YRS 00:00:00 [place] [facility] VACCINE Branch SARS-COV-2 COVID-19 2020-10-23 Completed Unive rsity of MODERNA 12+ YRS 00:00:00 [place] [facility] VACCINE Branch SARS-COV-2 COVID-19 2020-10-23 Completed Unive rsity of MODERNA 12+ YRS 00:00:00 [place] [facility] VACCINE Branch SARS-COV-2 COVID-19 2020-10-23 Completed Unive rsity of MODERNA 12+ YRS 00:00:00 [place] [facility] ical VACCINE Branch SARS-COV-2 COVID-19 2020-10-23 Completed Unive rsity of MODERNA 12+ YRS 00:00:00 [place] [facility] VACCINE Branch SARS-COV-2 COVID-19 2020-10-23 Completed Unive rsity of MODERNA 12+ YRS 00:00:00 [place] [facility] VACCINE Branch SARS-COV-2 COVID-19 2020-10-23 Completed Unive rsity of MODERNA 12+ YRS 00:00:00 [place] [facility] VACCINE Branch SARS-COV-2 COVID-19 2020-10-23 Completed Unive rsity of MODERNA 12+ YRS 00:00:00 [place] [facility] VACCINE Branch SARS-COV-2 COVID-19 2020-10-23 Completed Unive rsity of MODERNA 12+ YRS 00:00:00 [place] [facility] ical VACCINE Branch SARS-COV-2 COVID-19 2020-10-23 Completed Unive rsity of MODERNA 12+ YRS 00:00:00 [place] [facility] ical VACCINE Branch SARS-COV-2 COVID-19 2020-10-23 Completed Unive rsity of MODERNA 12+ YRS 00:00:00 [place] [facility] ical VACCINE Branch SARS-COV-2 COVID-19 2020-10-23 Completed Unive rsity of MODERNA 12+ YRS 00:00:00 [place] [facility] ical VACCINE Branch SARS-COV-2 COVID-19 2020-10-23 Completed Unive rsity of MODERNA 12+ YRS 00:00:00 [place] [facility] ical VACCINE Branch SARS-COV-2 COVID-19 2020-10-23 Completed Unive rsity of MODERNA 12+ YRS 00:00:00 [place] [facility] ical VACCINE Branch SARS-COV-2 COVID-19 2020-10-23 Completed Unive rsity of MODERNA 12+ YRS 00:00:00 [place] [facility] ical VACCINE Branch SARS-COV-2 COVID-19 2020-10-23 Completed Unive rsity of MODERNA 12+ YRS 00:00:00 [place] [facility] ical VACCINE Branch SARS-COV-2 COVID-19 2020-10-23 Completed Unive rsity of MODERNA 12+ YRS 00:00:00 [place] [facility] VACCINE Branch SARS-COV-2 COVID-19 2020-10-23 Completed Unive rsity of MODERNA 12+ YRS 00:00:00 [place] [facility] VACCINE Branch SARS-COV-2 COVID-19 2020-10-23 Completed Unive rsity of MODERNA 12+ YRS 00:00:00 [place] [facility] VACCINE Branch SARS-COV-2 COVID-19 2020-10-23 Completed Unive rsity of MODERNA 12+ YRS 00:00:00 [place] [facility] ical VACCINE Branch SARS-COV-2 COVID-19 2020-10-23 Completed Unive rsity of MODERNA 12+ YRS 00:00:00 [place] [facility] VACCINE Branch SARS-COV-2 COVID-19 2020-10-23 Completed Unive rsity of MODERNA 12+ YRS 00:00:00 [place] [facility] ical VACCINE Branch SARS-COV-2 COVID-19 2020-10-23 Completed Unive rsity of MODERNA 12+ YRS 00:00:00 [place] [facility] ical VACCINE Branch SARS-COV-2 COVID-19 2020-10-23 Completed Unive rsity of MODERNA 12+ YRS 00:00:00 [place] [facility] VACCINE Branch SARS-COV-2 COVID-19 2020-10-23 Completed Unive rsity of MODERNA 12+ YRS 00:00:00 [place] [facility] VACCINE Branch SARS-COV-2 COVID-19 2020-10-23 Completed Unive rsity of MODERNA 12+ YRS 00:00:00 [place] [facility] ical VACCINE Branch SARS-COV-2 COVID-19 2020-10-23 Completed Unive rsity of MODERNA 12+ YRS 00:00:00 [place] [facility] VACCINE Branch SARS-COV-2 COVID-19 2020-09-24 Completed Unive rsity of MODERNA 12+ YRS 00:00:00 [place] [facility] VACCINE Branch SARS-COV-2 COVID-19 2020-09-24 Completed Unive rsity of MODERNA 12+ YRS 00:00:00 [place] [facility] VACCINE Branch SARS-COV-2 COVID-19 2020-09-24 Completed Unive rsity of MODERNA 12+ YRS 00:00:00 [place] [facility] VACCINE Branch SARS-COV-2 COVID-19 2020-09-24 Completed Unive rsity of MODERNA VACCINE 00:00:00 [place] [facility] SARS-COV-2 COVID-19 2020-09-24 Completed Unive rsity of MODERNA VACCINE 00:00:00 [place] [facility] SARS-COV-2 COVID-19 2020-09-24 Completed Unive rsity of MODERNA VACCINE 00:00:00 [place] [facility] SARS-COV-2 COVID-19 2020-09-24 Completed Unive rsity of MODERNA VACCINE 00:00:00 [place] [facility] SARS-COV-2 COVID-19 2020-09-24 Completed Unive rsity of MODERNA VACCINE 00:00:00 [place] [facility] SARS-COV-2 COVID-19 2020-09-24 Completed Unive rsity of MODERNA VACCINE 00:00:00 [place] [facility] SARS-COV-2 COVID-19 2020-09-24 Completed Unive rsity of MODERNA VACCINE 00:00:00 [place] [facility] SARS-COV-2 COVID-19 2020-09-24 Completed Unive rsity of MODERNA 12+ YRS 00:00:00 [place] [facility] VACCINE Branch SARS-COV-2 COVID-19 2020-09-24 Completed Unive rsity of MODERNA 12+ YRS 00:00:00 [place] [facility] VACCINE Branch SARS-COV-2 COVID-19 2020-09-24 Completed Unive rsity of MODERNA 12+ YRS 00:00:00 [place] [facility] VACCINE Branch SARS-COV-2 COVID-19 2020-09-24 Completed Unive rsity of MODERNA 12+ YRS 00:00:00 [place] [facility] ical VACCINE Branch SARS-COV-2 COVID-19 2020-09-24 Completed Unive rsity of MODERNA 12+ YRS 00:00:00 [place] [facility] ical VACCINE Branch SARS-COV-2 COVID-19 2020-09-24 Completed Unive rsity of MODERNA 12+ YRS 00:00:00 [place] [facility] ical VACCINE Branch SARS-COV-2 COVID-19 2020-09-24 Completed Unive rsity of MODERNA 12+ YRS 00:00:00 [place] [facility] VACCINE Branch SARS-COV-2 COVID-19 2020-09-24 Completed Unive rsity of MODERNA 12+ YRS 00:00:00 [place] [facility] VACCINE Branch SARS-COV-2 COVID-19 2020-09-24 Completed Unive rsity of MODERNA 12+ YRS 00:00:00 [place] [facility] VACCINE Branch SARS-COV-2 COVID-19 2020-09-24 Completed Unive rsity of MODERNA 12+ YRS 00:00:00 [place] [facility] VACCINE Branch SARS-COV-2 COVID-19 2020-09-24 Completed Unive rsity of MODERNA 12+ YRS 00:00:00 [place] [facility] VACCINE Branch SARS-COV-2 COVID-19 2020-09-24 Completed Unive rsity of MODERNA 12+ YRS 00:00:00 [place] [facility] VACCINE Branch SARS-COV-2 COVID-19 2020-09-24 Completed Unive rsity of MODERNA 12+ YRS 00:00:00 [place] [facility] VACCINE Branch SARS-COV-2 COVID-19 2020-09-24 Completed Unive rsity of MODERNA 12+ YRS 00:00:00 [place] [facility] VACCINE Branch SARS-COV-2 COVID-19 2020-09-24 Completed Unive rsity of MODERNA 12+ YRS 00:00:00 [place] [facility] VACCINE Branch SARS-COV-2 COVID-19 2020-09-24 Completed Unive rsity of MODERNA 12+ YRS 00:00:00 [place] [facility] VACCINE Branch SARS-COV-2 COVID-19 2020-09-24 Completed Unive rsity of MODERNA 12+ YRS 00:00:00 [place] [facility] VACCINE Branch SARS-COV-2 COVID-19 2020-09-24 Completed Unive rsity of MODERNA 12+ YRS 00:00:00 [place] [facility] VACCINE Branch SARS-COV-2 COVID-19 2020-09-24 Completed Unive rsity of MODERNA 12+ YRS 00:00:00 [place] [facility] VACCINE Branch SARS-COV-2 COVID-19 2020-09-24 Completed Unive rsity of MODERNA 12+ YRS 00:00:00 [place] [facility] VACCINE Branch SARS-COV-2 COVID-19 2020-09-24 Completed Unive rsity of MODERNA 12+ YRS 00:00:00 [place] [facility] VACCINE Branch SARS-COV-2 COVID-19 2020-09-24 Completed Unive rsity of MODERNA 12+ YRS 00:00:00 [place] [facility] VACCINE Branch SARS-COV-2 COVID-19 2020-09-24 Completed Unive rsity of MODERNA 12+ YRS 00:00:00 [place] [facility] VACCINE Branch SARS-COV-2 COVID-19 2020-09-24 Completed Unive rsity of MODERNA 12+ YRS 00:00:00 [place] [facility] VACCINE Branch SARS-COV-2 COVID-19 2020-09-24 Completed Unive rsity of MODERNA 12+ YRS 00:00:00 [place] [facility] VACCINE Branch SARS-COV-2 COVID-19 2020-09-24 Completed Unive rsity of MODERNA 12+ YRS 00:00:00 [place] [facility] VACCINE Branch SARS-COV-2 COVID-19 2020-09-24 Completed Unive rsity of MODERNA 12+ YRS 00:00:00 [place] [facility] VACCINE Branch SARS-COV-2 COVID-19 2020-09-24 Completed Unive rsity of MODERNA 12+ YRS 00:00:00 [place] [facility] VACCINE Branch SARS-COV-2 COVID-19 2020-09-24 Completed Unive rsity of MODERNA 12+ YRS 00:00:00 [place] [facility] VACCINE Branch SARS-COV-2 COVID-19 2020-09-24 Completed Unive rsity of MODERNA 12+ YRS 00:00:00 [place] [facility] VACCINE Branch SARS-COV-2 COVID-19 2020-09-24 Completed Unive rsity of MODERNA 12+ YRS 00:00:00 [place] [facility] VACCINE Branch SARS-COV-2 COVID-19 2020-09-24 Completed Unive rsity of MODERNA 12+ YRS 00:00:00 [place] [facility] VACCINE Branch SARS-COV-2 COVID-19 2020-09-24 Completed Unive rsity of MODERNA 12+ YRS 00:00:00 [place] [facility] VACCINE Branch SARS-COV-2 COVID-19 2020-09-24 Completed Unive rsity of MODERNA 12+ YRS 00:00:00 [place] [facility] ical VACCINE Branch SARS-COV-2 COVID-19 2020-09-24 Completed Unive rsity of MODERNA 12+ YRS 00:00:00 [place] [facility] VACCINE Branch SARS-COV-2 COVID-19 2020-09-24 Completed Unive rsity of MODERNA 12+ YRS 00:00:00 [place] [facility] ical VACCINE Branch SARS-COV-2 COVID-19 2020-09-24 Completed Unive rsity of MODERNA 12+ YRS 00:00:00 [facility] VACCINE Branch HPV 2016-06-23 Completed University of 00:00:00 [facility] HPV 2016-06-23 Completed University of 00:00:00 [facility] HPV 2016-06-23 Completed University of 00:00:00 [facility] HPV 2016-06-23 Completed University of 00:00:00 [facility] HPV 2016-06-23 Completed University of 00:00:00 [facility] HPV 2016-06-23 Completed University of 00:00:00 [facility] HPV 2016-06-23 Completed University of 00:00:00 [facility] HPV 2016-06-23 Completed University of 00:00:00 [facility] HPV 2016-06-23 Completed University of 00:00:00 [place] [facility] HPV 2016-06-23 Completed [facility] of 00:00:00 [place] [facility] HPV 2016-06-23 Completed [facility] 00:00:00 [place] [facility] HPV 2016-06-23 Completed [facility] 00:00:00 [place] [facility] HPV 2016-06-23 Completed [facility] 00:00:00 [place] [facility] HPV 2016-06-23 Completed [facility] 00:00:00 [place] [facility] HPV 2016-06-23 Completed [facility] 00:00:00 [place] [facility] HPV 2016-06-23 Completed [facility] 00:00:00 [place] [facility] HPV 2016-06-23 Completed University of 00:00:00 [facility] HPV 2016-06-23 Completed University of 00:00:00 [place] [facility] HPV 2016-06-23 Completed [facility] 00:00:00 [place] [facility] HPV 2016-06-23 Completed University of 00:00:00 [place] [facility] HPV 2016-06-23 Completed [facility] of 00:00:00 [place] [facility] HPV 2016-06-23 Completed [facility] of 00:00:00 [place] [facility] HPV 2016-06-23 Completed [facility] of 00:00:00 [place] [facility] HPV 2016-06-23 Completed [facility] of 00:00:00 [place] [facility] HPV 2016-06-23 Completed [facility] of 00:00:00 [place] [facility] HPV 2016-06-23 Completed [facility] of 00:00:00 [place] [facility] HPV 2016-06-23 Completed [facility] of 00:00:00 [place] [facility] HPV 2016-06-23 Completed [facility] of 00:00:00 [place] [facility] HPV 2016-06-23 Completed [facility] of 00:00:00 [place] [facility] HPV 2016-06-23 Completed [facility] of 00:00:00 [place] [facility] HPV 2016-06-23 Completed [facility] of 00:00:00 [place] [facility] HPV 2016-06-23 Completed [facility] of 00:00:00 [place] [facility] HPV 2016-06-23 Completed [facility] 00:00:00 [place] [facility] HPV 2016-06-23 Completed [facility] of 00:00:00 [place] [facility] HPV 2016-06-23 Completed [facility] 00:00:00 [place] [facility] HPV 2016-06-23 Completed [facility] 00:00:00 [place] [facility] HPV 2016-06-23 Completed [facility] 00:00:00 [place] [facility] HPV 2016-06-23 Completed [facility] of 00:00:00 [place] [facility] HPV 2016-06-23 Completed [facility] of 00:00:00 [place] [facility] HPV 2016-06-23 Completed [facility] of 00:00:00 [place] [facility] HPV 2016-06-23 Completed [facility] of 00:00:00 [place] [facility] HPV 2016-06-23 Completed [facility] of 00:00:00 [place] [facility] HPV 2016-06-23 Completed [facility] of 00:00:00 [place] [facility] HPV 2016-06-23 Completed [facility] of 00:00:00 [place] [facility] HPV 2016-06-23 Completed [facility] of 00:00:00 [place] [facility] HPV 2016-06-23 Completed [facility] 00:00:00 [place] [facility] HPV 2016-06-23 Completed University of 00:00:00 [facility] TDAP 2009-06-03 Completed University of 00:00:00 [facility] TDAP 2009-06-03 Completed University of 00[facility]00:00 [facility] TDAP 2009-06-03 Completed University of 00:00:00 [facility] TDAP 2009-06-03 Completed University of 00:00:00 [facility] TDAP 2009-06-03 Completed University of 00:00:00 [facility] TDAP 2009-06-03 Completed University of 00:00:00 [facility] TDAP 2009-06-03 Completed University of 00:00:00 [facility] TDAP 2009-06-03 Completed University of 00:00:00 [facility] TDAP 2009-06-03 Completed University of 00:00:00 [facility] TDAP 2009-06-03 Completed University of 00:00:00 [facility] TDAP 2009-06-03 Completed University of 00:00:00 [facility] TDAP 2009-06-03 Completed University of 00:00:00 [facility] TDAP 2009-06-03 Completed University of 00:00:00 [facility] TDAP 2009-06-03 Completed University of 00:00:00 [facility] TDAP 2009-06-03 Completed University of 00:00:00 [facility] TDAP 2009-06-03 Completed University of 00:00:00 [facility] TDAP 2009-06-03 Completed University of 00:00:00 [facility] TDAP 2009-06-03 Completed University of 00:00:00 [facility] TDAP 2009-06-03 Completed University of 00:00:00 [facility] TDAP 2009-06-03 Completed University of 00:00:00 [facility] TDAP 2009-06-03 Completed University of 00:00:00 [facility] TDAP 2009-06-03 Completed University of 00:00:00 [facility] TDAP 2009-06-03 Completed University of 00:00:00 [facility] TDAP 2009-06-03 Completed University of 00:00:00 [facility] TDAP 2009-06-03 Completed University of 00:00:00 [facility] TDAP 2009-06-03 Completed University of 00:00:00 [facility] TDAP 2009-06-03 Completed [facility] 00:00:00 [place] [facility] TDAP 2009-06-03 Completed [facility] 00:00:00 [facility] TDAP 2009-06-03 Completed [facility] 00:00:00 [facility] TDAP 2009-06-03 Completed [facility] 00:00:00 [facility] TDAP 2009-06-03 Completed [facility] 00:00:00 [facility] TDAP 2009-06-03 Completed [facility] 00:00:00 [facility] TDAP 2009-06-03 Completed [facility] 00:00:00 [facility] TDAP 2009-06-03 Completed [facility] 00:00:00 [facility] TDAP 2009-06-03 Completed [facility] 00:00:00 [facility] TDAP 2009-06-03 Completed [facility] 00[facility]00:00 [facility] TDAP 2009-06-03 Completed [facility] 00[facility]00:00 [facility] TDAP 2009-06-03 Completed [facility] 00:00:00 [facility] TDAP 2009-06-03 Completed [facility] 00:00:00 [facility] TDAP 2009-06-03 Completed [facility] 00[facility]00:00 [facility] TDAP 2009-06-03 Completed [facility] 00:00:00 [facility] TDAP 2009-06-03 Completed [facility] 00[facility]00:00 [facility] TDAP 2009-06-03 Completed [facility] 00:00:00 [facility] TDAP 2009-06-03 Completed [facility] 00:00:00 [facility] TDAP 2009-06-03 Completed [facility] 00:00:00 [facility] TDAP 2009-06-03 Completed [facility] 00:00:00 [facility] TDAP 2009-06-03 Completed [facility] 00:00:00 [facility] Vital Signs Vital Name Observation Time Observation Value Comments Source Systolic blood 2022-09-30 15:49:00 103 mm[Hg] Univer sity of pressure [facility] Diastolic blood 2022-09-30 15:49:00 59 mm[Hg] Unive rsity of pressure [facility] Heart rate 2022-09-30 15:49:00 66 /min Universi [facility] Body temperature 2022-09-30 15:49:00 36.78 Kathy [facility] Respiratory rate 2022-09-30 15:49:00 18 /min [facility] Body weight 2022-09-30 15:49:00 91.173 kg Universi ty [facility] BMI 2022-09-30 15:49:00 33.45 kg/m2 [facility] Systolic blood 2022-09-11 15:10:00 117 mm[Hg] Univer sity of pressure [facility] Diastolic blood 2022-09-11 15:10:00 74 mm[Hg] Unive rsity of pressure [facility] Heart rate 2022-09-11 15:10:00 76 /min [facility]i [facility] Body temperature 2022-09-11 15:10:00 36.72 Kathy Univ ersity [facility] Body height 2022-09-11 15:10:00 165.1 cm [facility] Body weight 2022-09-11 15:10:00 91.899 kg [facility] BMI 2022-09-11 15:10:00 33.71 kg/m2 [facility] Heart rate 2022-08-05 15:07:00 64 /min [facility] Body temperature 2022-08-05 15:07:00 36.83 Kathy Univ ersity [facility] Respiratory rate 2022-08-05 15:07:00 18 /min Univ ersity of [facility] Body height 2022-08-05 15:07:00 165.1 cm [facility] Body weight 2022-08-05 15:07:00 91.173 kg [facility] BMI 2022-08-05 15:07:00 33.45 kg/m2 [facility] Systolic blood 2022-08-05 15:07:00 119 mm[Hg] Univer sity of pressure [facility] Diastolic blood 2022-08-05 15:07:00 75 mm[Hg] Unive rsity of pressure [facility] Systolic blood 2022-07-01 13:15:00 131 mm[Hg] Univer sity of pressure [facility] Diastolic blood 2022-07-01 13:15:00 88 mm[Hg] Unive rsity of pressure [facility] Heart rate 2022-07-01 13:15:00 60 /min [facility]i [facility] Body temperature 2022-07-01 13:15:00 36.83 Kathy Univ ersity of [facility] Respiratory rate 2022-07-01 13:15:00 16 /min Univ ersity [facility] Oxygen saturation in 2022-07-01 10:30:00 100 /min University of Arterial blood by [facility] Pulse oximetry Branch Body height 2022-06-30 06:25:00 165.1 cm [facility]i [facility] Body weight 2022-06-30 06:25:00 102.422 kg [facility] BMI 2022-06-30 06:25:00 37.58 kg/m2 [facility] Systolic blood 2022-06-29 16:44:00 134 mm[Hg] Univer sity of pressure [facility] Diastolic blood 2022-06-29 16:44:00 89 mm[Hg] Unive rsity of pressure [facility] Heart rate 2022-06-29 16:44:00 85 /min [facility] Body temperature 2022-06-29 16:44:00 36.94 Kathy Univ ersity [facility] Respiratory rate 2022-06-29 16:44:00 18 /min Univ ersity of [facility] Body height 2022-06-29 16:44:00 165.1 cm [facility] Body weight 2022-06-29 16:44:00 101.515 kg [facility] BMI 2022-06-29 16:44:00 37.24 kg/m2 [facility] Oxygen saturation in 2022-06-29 16:44:00 99 /min University of Arterial blood by [facility] Pulse oximetry Branch Heart rate 2022-06-27 12:15:00 65 /min [facility] Oxygen saturation in 2022-06-27 12:15:00 99 /min University of Arterial blood by [facility] celine Pulse oximetry Branch Systolic blood 2022-06-27 10:45:00 130 mm[Hg] Univer sity of pressure [facility] Diastolic blood 2022-06-27 10:45:00 80 mm[Hg] Unive rsity of pressure [facility] Body temperature 2022-06-27 10:45:00 36.83 Kathy Univ ersity of [facility] Body height 2022-06-27 10:45:00 165.1 cm [facility] Body weight 2022-06-27 10:45:00 98.884 kg [facility] BMI 2022-06-27 10:45:00 36.28 kg/m2 [facility] Systolic blood 2022-06-22 18:20:00 124 mm[Hg] Univer sity of pressure [facility] Diastolic blood 2022-06-22 18:20:00 77 mm[Hg] Unive rsity of pressure [facility] Heart rate 2022-06-22 18:20:00 71 /min [facility] Body temperature 2022-06-22 18:20:00 36.83 Kathy Univ ersity [facility] Respiratory rate 2022-06-22 18:20:00 18 /min Univ ersity [facility] Body height 2022-06-22 18:20:00 165.1 cm [facility] Body weight 2022-06-22 18:20:00 100.336 kg [facility] BMI 2022-06-22 18:20:00 36.81 kg/m2 [facility] Systolic blood 2022-06-17 20:18:00 127 mm[Hg] Univer sity of pressure [facility] Diastolic blood 2022-06-17 20:18:00 83 mm[Hg] Unive rsity of pressure [facility] Heart rate 2022-06-17 20:18:00 84 /min [facility]i [facility] Body temperature 2022-06-17 20:18:00 36.94 Kathy Univ ers[facility] Respiratory rate 2022-06-17 20:18:00 18 /min Univ ersity [facility] Body height 2022-06-17 20:18:00 165.1 cm [facility] Body weight 2022-06-17 20:18:00 98.431 kg [facility] BMI 2022-06-17 20:18:00 36.11 kg/m2 [facility] Systolic blood 2022-06-15 16:47:00 119 mm[Hg] Univer sity of pressure [facility] Diastolic blood 2022-06-15 16:47:00 75 mm[Hg] Unive rsity of pressure [facility] Heart rate 2022-06-15 16:47:00 67 /min [facility] Body temperature 2022-06-15 16:47:00 36.89 Kathy Univ ers[facility] Body height 2022-06-15 16:47:00 165.1 cm [facility] Body weight 2022-06-15 16:47:00 98.884 kg [facility] BMI 2022-06-15 16:47:00 36.28 kg/m2 [facility] Systolic blood 2022-06-04 16:55:00 130 mm[Hg] Univer sity of pressure [facility] Diastolic blood 2022-06-04 16:55:00 86 mm[Hg] Unive rsity of pressure [facility] Heart rate 2022-06-04 16:55:00 79 /min [facility] Body temperature 2022-06-04 16:55:00 36.83 Kathy Univ ers[facility] Respiratory rate 2022-06-04 16:55:00 18 /min Univ ersity [facility] Body height 2022-06-04 16:55:00 165.1 cm [facility] Body weight 2022-06-04 16:55:00 98.884 kg [facility] BMI 2022-06-04 16:55:00 36.28 kg/m2 [facility] Systolic blood 2022-05-21 16:07:00 114 mm[Hg] Univer sity of pressure [facility] Diastolic blood 2022-05-21 16:07:00 74 mm[Hg] Unive rsity of pressure [facility] Heart rate 2022-05-21 16:07:00 64 /min [facility] Body temperature 2022-05-21 16:07:00 36.83 Kathy Univ [facility] Body height 2022-05-21 16:07:00 165.1 cm [facility] Body weight 2022-05-21 16:07:00 96.525 kg [facility] BMI 2022-05-21 16:07:00 35.41 kg/m2 [facility] Systolic blood 2022-05-06 16:01:00 106 mm[Hg] Univer sity of pressure [facility] Diastolic blood 2022-05-06 16:01:00 67 mm[Hg] Unive rsity of pressure [facility] Heart rate 2022-05-06 16:01:00 82 /min [facility] Body temperature 2022-05-06 16:01:00 36.28 Kathy Univ ers[facility] Body height 2022-05-06 16:01:00 165.1 cm [facility] Body weight 2022-05-06 16:01:00 96.072 kg [facility] BMI 2022-05-06 16:01:00 35.25 kg/m2 [facility] Systolic blood 2022-04-22 17:24:00 113 mm[Hg] Univer sity of pressure [facility] Diastolic blood 2022-04-22 17:24:00 73 mm[Hg] Unive rsity of pressure [facility] Heart rate 2022-04-22 17:24:00 74 /min [facility] Body temperature 2022-04-22 17:24:00 36.72 Kathy Univ [facility] Body height 2022-04-22 17:24:00 165.1 cm [facility] Body weight 2022-04-22 17:24:00 94.257 kg [facility] BMI 2022-04-22 17:24:00 34.58 kg/m2 [facility] Systolic blood 2022-03-25 17:24:00 117 mm[Hg] Univer sity of pressure [facility] Diastolic blood 2022-03-25 17:24:00 75 mm[Hg] Unive rsity of pressure [facility] Heart rate 2022-03-25 17:24:00 79 /min [facility] Body temperature 2022-03-25 17:24:00 36.56 Kathy Univ ers[facility] Body height 2022-03-25 17:24:00 165.1 cm [facility] Body weight 2022-03-25 17:24:00 94.167 kg [facility] BMI 2022-03-25 17:24:00 34.55 kg/m2 [facility] Systolic blood 2022-02-25 15:52:00 112 mm[Hg] Univer sity of pressure [facility] Diastolic blood 2022-02-25 15:52:00 77 mm[Hg] Unive rsity of pressure [facility] Heart rate 2022-02-25 15:52:00 90 /min [facility] Body temperature 2022-02-25 15:52:00 36.61 Kathy Univ [facility] Respiratory rate 2022-02-25 15:52:00 17 /min Univ [facility] Body height 2022-02-25 15:52:00 165.1 cm [facility] Body weight 2022-02-25 15:52:00 90.357 kg [facility] BMI 2022-02-25 15:52:00 33.15 kg/m2 [facility] Systolic blood 2022-01-27 16:15:00 110 mm[Hg] Univer sity of pressure [facility] Diastolic blood 2022-01-27 16:15:00 72 mm[Hg] Unive rsity of pressure [facility] Heart rate 2022-01-27 16:15:00 76 /min [facility] Body temperature 2022-01-27 16:15:00 36.72 Kathy Univ ers[facility] Respiratory rate 2022-01-27 16:15:00 18 /min Univ ersity [facility] Body height 2022-01-27 16:15:00 165.1 cm [facility] Body weight 2022-01-27 16:15:00 92.08 kg [facility] BMI 2022-01-27 16:15:00 33.78 kg/m2 [facility] Systolic blood 2021-12-31 21:19:00 129 mm[Hg] Univer sity of pressure [facility] Diastolic blood 2021-12-31 21:19:00 70 mm[Hg] Unive rsity of pressure [facility] Heart rate 2021-12-31 21:19:00 94 /min [facility] Body temperature 2021-12-31 21:19:[address] [facility] ersity [facility] Respiratory rate 2021-12-31 21:19:00 18 /min [facility] Body height 2021-12-31 21:19:00 165.1 cm [facility] Body weight 2021-12-31 21:19:00 90.719 kg [facility] BMI 2021-12-31 21:19:00 33.28 kg/m2 [facility] Systolic blood 2021-12-03 14:51:00 112 mm[Hg] [facility] Diastolic blood 2021-12-03 14:51:00 72 mm[Hg] [facility] Heart rate 2021-12-03 14:51:00 69 /min Universi ty of [facility] Body temperature 2021-12-03 14:51:[address] [facility] Respiratory rate 2021-12-03 14:51:00 18 /min [facility] ersity [facility] Body height 2021-12-03 14:51:00 165.1 cm [facility] Body weight 2021-12-03 14:51:00 93.895 kg Universi ty of [facility] BMI 2021-12-03 14:51:00 34.45 kg/m2 Universi ty of [facility] Procedures Procedure Date / Time Performing Clinician Source Performed CBC WITH DIFF 2022-07-01 10:24:00 Blayne Galindo [facility] HB ABO GROUPING 2022-06-30 11:34:00 Blayne Galindo [facility] RHO (D) IMMUNE GLOBULIN 2022-06-30 11:34:00 Blayne Galindo [facility] HOSPITAL ADMISSION 2022-06-30 06:01:00 Doctor Unassigned, [facility] [place] ASSIGNMENT OF BENEFITS 2022-06-29 17:18:57 Doctor Unassigned, [facility] POCT URINALYSIS W/O 2022-06-29 00:00:00 Blayne Galindo [facility] SPECIFIC GRA[facility] [place] DME/SUPPLY JUSTIFICATION 2022-06-28 06:01:00 Doctor Neelima [facility] POCT URINALYSIS W/O 2022-06-22 00:00:00 Blayne Galindo [facility] ty [facility] SPECIFIC GRAVITY [facility] [place] >14 WEEKS US 2022-06-15 17:14:[address] [facility] DSU PRE-OP 2022-06-15 06:01:00 Doctor Neelima [facility] POCT URINALYSIS W/O 2022-06-15 00:00:00 Blayne Galindo [facility] ty [facility] SPECIFIC GRAVITY [facility] [place] POCT URINALYSIS W/O 2022-06-04 00:00:00 Beatriz Anglin [facility] SPECIFIC GRAVITY [facility] [place] DME/SUPPLY JUSTIFICATION 2022-06-03 06:01:00 Doctor Ortez [facility] POCT URINALYSIS W/O 2022-05-21 00:00:00 Blayne Galindo [facility] ty [facility] SPECIFIC GRAVITY [facility] [place] POCT URINALYSIS W/O 2022-05-06 00:00:00 Beatriz Anglin [facility] SPECIFIC GRAVITY [facility] [place] POCT URINALYSIS W/O 2022-04-22 00:00:00 Blayne Galindo [facility] SPECIFIC GRAVITY [facility] [place] POCT URINALYSIS W/O 2022-03-25 00:00:00 Beatriz Anglin [facility] SPECIFIC GRAVITY [facility] [place] POCT URINALYSIS W/O 2022-02-25 00:00:00 Blayne Galindo [facility] SPECIFIC GRAVITY [facility] [place] POCT URINALYSIS W/O 2022-01-27 00:00:00 Beatriz Anglin [facility] SPECIFIC [facility]RA[facility] [place] INSURANCE CORRESPONDENCE 2022-01-21 05:01:00 Doctor Neelima [facility] [place] EXTERNAL PROVIDER RECORDS 2022-01-13 05:01:00 Doctor Neelima [facility] POCT URINALYSIS W/O 2021-12-31 00:00:00 Beatriz Anglin [facility] SPECIFIC GRAVITY [facility] [place] SCANNED LAB RESULTS 2021-12-24 05:01:00 Catie Mujica [facility] [place] [facility] <14 WEEKS US 2021-12-03 15:26:[address] [facility] POCT URINALYSIS W/O 2021-12-03 15:00:00 Blayne Galindo [facility] AUTHORIZATION TO RELEASE 2021-12-03 05:01:00 Doctor [facility] [place] [facility] Encounters Start End Encounter Admission Attending Care Care Encounter Source Date/Time Date/Time Type Type Clinicians Facility Department ID 2022-06-27 Outpatient P [facility] VINCE [id number] Univers 06:58:59 [facility] 2023-01-01 2023-01-[address] [facility] [id number] Univers 10:00:00 10:00:00 [facility] 2022-10-22 2022-10-22 Outpatient R AKINSIPE, [facility] [id number] Univers 09:15:00 09:15:00 LISHA ity o f [facility] 2022-10-22 2022-10-22 Outpatient R AKINSIPE, [facility] [id number] Univers 09:15:00 09:15:00 LISHA ity o f [facility] 2022-10-22 2022-10-22 Outpatient R AKINSIPE, [facility] [id number] Univers 09:15:00 09:15:00 LISHA ity o f [facility] 2022-10-22 2022-10-22 Outpatient R AKINSIPE, [facility] [id number] Univers 09:15:00 09:15:00 LISHA ity o f [facility] 2022-09-30 2022-09-30 Outpatient R LINNETTE, [facility] [id number] Univers 10:30:00 10:51:03 BEATRIZ mckeon [facility] 2022-09-30 2022-09-30 Nurse Nurse, [facility] 1.2.840.114 [id number] Univers 10:30:00 10:51:03 Visit Beatriz Anglin [id number] [id number] [id number] [address] 2022-09-11 2022-09-11 [facility] [id number] Univers 10:00:00 10:30:00 Visit Beatriz ALCALA 350.1.13.10 i ty [id number] [id number] [address] 2022-09-11 2022-09-11 Outpatient R LINNETTE [facility] [id number] Univers 10:00:00 10:00:00 [facility] 2022-08-05 2022-08-05 Outpatient R LINNETTE [facility] [id number] Univers 10:00:00 10:40:12 [facility] 2022-08-05 2022-08-05 [facility] [id number] Univers 10:00:00 10:40:12 Beatriz ALCALA [id number] ity of [id number] [id number] [address] 2022-08-03 2022-08-03 Outpatient R BLAYNE GALINDO [facility] [id number] Univers 13:00:00 13:00:00 ity [facility] 2022-07-09 2022-07-09 [place] Blayne Galindo [facility] 1.2.840.114 [id number] Univers 00:00:00 00:00:00 Michael ALCALA 350.1.13.10 i ty [place] [id number] [address] 2022-06-30 2022-07-01 Inpatient P BLAYNE GALINDO [facility] VINCE [id number] Univers 00:03:00 13:20:00 ity [facility] 2022-06-30 2022-07-01 [facility] Blayne Galindo [facility] 1.2.840.114 [id number] Univers 00:03:00 13:20:00 Encounter Cam FREDRICK [id number] [place] [id number] [facility] [address] [place] 2022-06-30 2022-06-30 Orders Doctor HERBER 1.2.840.114 [id number] Univers 00:00:00 00:00:00 Only Unassigned, LEONILA 350.1.13.10 [facility]y of [place] [facility] 4.2.7.2.686 Froylan as [id number] [facility] [address] [place] 2022-06-29 2022-06-29 Network Operations Technician Eddie, Adc Lab Main [facility] 1.2.8 40.114 [id number] Univers 12:00:00 12:15:00 Visit Blayne Galindo 350.1.13.10 [id number] [id number] Id dical NAL 353 [facility] 2022-06-29 2022-06-29 Outpatient R BLAYNE GALINDO [facility] [id number] Univers 10:15:00 11:07:09 ity of [facility] 2022-06-29 2022-06-29 Routine Blayne Galindo [facility] [id number] Univers 10:15:00 11:07:09 Michael COBBJUAN ALBERTO 350.1.13.10 ity of [place] [id number] Id dical NAL 134 [facility] 2022-06-29 2022-06-29 Orders Doctor HERBER 1.2.840.114 [id number] Univers 00:00:00 00:00:00 Only Unassigned, LEONILA 350.1.13.10 [facility]y of [place] [facility] 4.2.7.2.686 Froylan as [id number] [facility] [address] [place] 2022-06-28 2022-06-28 Orders Doctor CRAVEN 1.2.840.114 [id number] Univers 00:00:00 00:00:00 Only Unassigned, LEONILA 350.1.13.10 ity of [place] [facility] 4.2.7.2.686 Fro[place] as [id number] [facility] 00[address] [facility] 2022-06-27 2022-06-27 Outpatient P JANY LOMBARDO [facility] O BY [id number] Univers 04:25:00 06:45:00 JANY LOMBARDO ity of [facility] 2022-06-27 2022-06-27 [facility] 1.2 .840.114 [id number] Univers 04:25:00 06:45:00 Encounter Blayne Galindo 350.1.13.10 [place] [id number] [facility] [address] [place] 2022-06-24 2022-06-24 Patient Marcelo [facility] 1.2.840.114 [id number] Univers 00:00:00 00:00:00 Secure Msg Soniaestela ALCALA 350.1.13.10 [place] [id number] Id dical NAL [address] [place] [address] 2022-06-22 2022-06-22 Outpatient R BLAYNE GALINDO [facility] [id number] Univers 11:00:00 12:30:17 ity of [facility] 2022-06-22 2022-06-22 Routine Ran [facility] [id number] Univers 11:00:00 12:30:17 Michael ALCALA 350.1.13.10 ity of [place] [id number] Id dical NAL [address] [place] [address] 2022-06-17 2022-06-17 Nurse Nurse, [facility] 1.2.840.114 [id number] Univers 14:00:00 14:15:00 Visit Blayne Galindo 350.1.13.10 [place] [id number] Id dical NAL [address] [place] [address] 2022-06-17 2022-06-17 Outpatient R BLAYNE GALINDO [facility] [id number] Univers 14:00:00 14:00:00 ity of [facility] 2022-06-17 2022-06-17 Patient Linnette [facility] [id number] Univers 00:00:00 00:00:00 Secure Msg Beatriz FREDRICK 350.1.13.10 [place] [id number] Id dical NAL 134 [facility] 2022-06-16 2022-06-16 Case Linnette [facility] [id number] Univers 00:00:00 00:00:00 Management Beatriz ALCALA 350.1.13.10 [facility] [place] [id number] Id dical NAL 134 [facility] 2022-06-15 2022-06-15 Network Operations Technician 2, Adc Lab [facility] 1.2.840.114 [id number] Univers 13:00:00 13:15:00 Visit Blayne Galindo 350.1.13.10 [facility] [place] [id number] Id dical NAL 353 [facility] 2022-06-15 2022-06-15 Outpatient R BLAYNE GALINDO [facility] [id number] Univers 13:00:00 13:00:00 ity of [facility] 2022-06-15 2022-06-15 Routine Ran Blayne [facility] [id number] Univers 10:15:00 10:30:00 Michael ALCALA 350.1.13.10 ity [facility] [place] [id number] Id dical NAL [address] [place] [address] 2022-06-15 2022-06-15 Orders Doctor CRAVEN 1.2.840.114 [id number] Univers 00:00:00 00:00:00 Only Unassigned, LEONILA 350.1.13.10 [place]y [place] [facility] 4.2.7.2.686 Fro[place] as [id number] [address] 2022-06-04 2022-06-04 Outpatient R LINNETTE [facility] [id number] Univers 10:30:00 11:07:41 BEATRIZ ity of [facility] 2022-06-04 2022-06-04 Routine Linnette [facility] 1.2.940.501 [id number] Univers 10:30:00 11:07:41 Beatriz [place] 350.1.13.10 ity of [place] [id number] Id dic[address] 2022-06-03 2022-06-03 Telephone Blayne Galindo [facility] 1.2.840.114 [id number] Univers 00:00:00 00:00:00 Cam [place] 350.1.13.10 i ty of [place] [phone] [address] 2022-06-03 2022-06-03 Orders Doctor HERBER 1.2.840.114 [id number] Univers 00:00:00 00:00:00 Only Unassigned, LEONILA 350.1.13.10 ity of [place] [facility] 4.2.7.2.686 Froylan as [phone] [address] 2022-05-21 2022-05-21 Outpatient R BLAYNE GALINDO [facility] [id number] Univers 09:45:00 10:36:25 ity of [facility] 2022-05-21 2022-05-21 Routine Blayne Galindo [facility] 1.2.888.636 [id number] Univers 09:45:00 10:36:25 Cam [place] 350.1.13.10 ity of [place] [id number] [address] 2022-05-19 2022-05-19 Network Operations Technician Ultrasound, Adc [facility] 1.2 .840.114 [id number] Univers 09:30:00 10:00:00 Visit Sydney [place] 350.1 .13.10 ity [facility] [place] [phone] Id dical NAL 134 [facility] 2022-05-19 2022-05-19 [address] P YONG [facility] [id number] Univers 09:30:00 09:30:00 RENETTA it y of S, GRIMES [facility] 2022-05-06 2022-05-06 Outpatient R LINNETTE [facility] [id number] Univers 10:00:00 10:15:20 BEATRIZ ity of [facility] 2022-05-06 2022-05-06 Routine Linnette [facility] 1.2.369.660 [id number] Univers 10:00:00 10:15:20 Beatriz ALCALA 350.1.13.10 ity of [place] [id number] Id dical NAL 134 [facility] 2022-04-22 2022-04-22 Outpatient R BLAYNE GALINDO [facility] [id number] Univers 11:15:00 11:40:33 ity of [facility] 2022-04-22 2022-04-22 Routine Blayne Galindo [facility] 1.2.227.032 [id number] Univers 11:15:00 11:40:33 Michael ALCALA 350.1.13.10 ity of [place] 4[place] [phone] Id dical NAL 134 [facility] 2022-04-08 2022-04-08 Network Operations Technician 2, Adc Lab [facility] 1.2.840.114 [id number] Univers 10:15:00 10:30:00 Visit Ran Blayneclaribel [place] 350.1.13.10 ity of [place] 4[place] [phone] Id dical NAL 353 [facility] 2022-04-08 2022-04-08 Outpatient R BLAYNE GALINDO [facility] [id number] Univers 10:15:00 10:15:00 ity of [facility] 2022-03-25 2022-03-25 Routine Linnette [facility] 1.2.891.121 [id number] Univers 11:30:00 11:45:00 Beatriz FREDRICK 350.1.13.10 ity of [place] 4[place] [id number] Id dical [facility] 134 [facility] 2022-03-25 2022-03-25 Outpatient R LINNETTE [facility] [id number] Univers 11:30:00 11:30:00 BEATRIZ ityokasta [facility] 2022-02-25 2022-02-25 Outpatient R BLAYNE GALINDO [facility] [id number] Univers 11:00:00 12:07:16 ity [facility] 2022-02-25 2022-02-25 Routine Ran [facility] 1.2.535.721 [id number] Univers 11:00:00 12:07:16 Michael ALCALA 350.1.13.10 ity of [place] [phone] [address] 2022-02-19 2022-02-19 Network Operations Technician Ultrasound, [facility] 1.2 .840.114 [id number] Univers 09:45:00 10:45:00 Visit Merritt Bhakta 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 350.1.13.10 ity of [facility] 4.2.7.2.686 [place] as MATERNAL [phone] [facility] ical & CHILD [address] [place] [address] 2022-02-19 2022-02-19 Outpatient P MERRITT BHAKTA [facility] [id number] Univers 09:45:00 09:45:00 [facility] 2022-01-27 2022-01-27 Network Operations Technician 2, Adc Lab [facility] 1.2.840.114 [id number] Univers 11:45:00 12:00:00 Visit Beatriz Anglin 350.1.13.10 ity of [place] [id number] [facility] 353 [facility] 2022-01-27 2022-01-27 [facility] [id number] Univers 11:00:00 11:30:55 BEATRIZ ity [facility] 2022-01-27 2022-01-27 Routine [facility] 1.2.276.992 [id number] Univers 11:00:00 11:30:55 Beatriz ALCALA 350.1.13.10 ity of [place] 4[place] [id number] Id dical [address] 2022-01-22 2022-01-[address] [facility] [id number] Univers 09:00:00 09:00:00 ity [facility] 2022-01-22 2022-01-[address] [facility] [id number] Univers 09:00:00 09:00:00 ity of [facility] 2022-01-22 2022-01-22 Outpatient [facility] [id number] Univers 09:00:00 09:00:00 LISHA ity o f [facility] 2022-01-22 2022-01-[address] [facility] [id number] Univers 09:00:00 09:00:00 ity of [facility] 2022-01-21 2022-01-21 Orders Doctor CRAVEN 1.2.840.114 [id number] Univers 00:00:00 00:00:00 Only Unassigned, LEONILA 350.1.13.10 ity of [place] [facility] 4.2.7.2.686 Fro[place] as [phone] [address] 2022-01-13 2022-01-13 Orders Doctor HERBER 1.2.840.114 [id number] Univers 00:00:00 00:00:00 Only Unassigned, LEONILA 350.1.13.10 ity of [place] [facility] 4.2.7.2.686 Froylan as [phone] [address] 2022-01-08 2022-01-08 Telephone Blayne Galindo [facility] 1.2.840.114 [id number] Univers 00:00:00 00:00:00 Michael ALCALA 350.1.13.10 i ty of [place] [phone] Me dical NAL 134 [facility] 2022-01-02 2022-01-02 Network Operations Technician 2, [facility] Room UN[facility]ERSIT 1 .2.840.114 [id number] Univers 13:00:00 13:30:00 Visit Di Ely [facility] 350.1 .13.10 ity of CL[place] [id number] [facility] [address] 2022-01-02 2022-01-02 Outpatient P [facility] [id number] Univers 13:00:00 13:00:00 [facility] 2022-01-02 2022-01-02 [facility] 1.2.840.114 [id number] Univers 00:00:00 00:00:00 Lisha Colmenares 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 350.1.13.10 ity of [facility] 4.2.7.2.686 [place] as MATERNAL [phone] Med ical & CHILD [address] [address] 2021-12-31 2021-12-31 Outpatient [facility] [id number] Univers 16:15:00 16:32:53 BEATRIZ [facility] 2021-12-31 2021-12-31 Routine [facility] 1.2.814.365 [id number] Univers 16:15:00 16:32:53 Beatriz SHIPSHEWANA 350.1.13.10 ity of [place] 4[place] [id number] Id dical NAL 134 [facility] 2021-12-24 2021-12-24 Network Operations Technician 2, Adc Lab [facility] 1.2.840.114 [id number] Univers 10:30:00 10:45:00 Visit Blayne Galindo 350.1.13.10 ity of [place] [id number] Id dical NAL 353 [facility] 2021-12-24 2021-12-24 Outpatient R BLAYNE GALINDO [facility] [id number] Univers 10:30:00 10:30:00 ity of [facility] 2021-12-24 2021-12-24 Patient CaseLisbet [facility] TORSTEN 1.2.840.114 [id number] Univers 00:00:00 00:00:00 Secure Msg Burke SOARES 350.1.13.10 ity [place] [id number] [facility] [address] 2021-12-24 2021-12-24 Orders Doctor HERBER 1.2.840.114 [id number] Univers 00:00:00 00:00:00 Only Unassigned, LEONILA 350.1.13.10 ity of [place] [facility] 4.2.7.2.686 [place] as [phone] [facility] [address] 2021-12-16 2021-12-16 Outpatient R STEPHANIE [facility] [id number] Univers 11:00:00 11:00:00 [facility] mckeon o [facility] 2021-12-16 2021-12-[address] BROWN [facility] [id number] Univers 11:00:00 11:00:00 [facility] mckeon o [facility] 2021-12-16 2021-12-16 Outpatient [facility] [id number] Univers 11:00:00 11:00:00 [facility] mckeon o [facility] 2021-12-08 2021-12-08 Case Linnette [facility] 1.2.736.583 [id number] Univers 00:00:00 00:00:00 Management Beatriz ALCALA 350.1.13.10 ity of [place] [id number] [place] [address] [address] [facility] 2021-12-03 2021-12-03 Outpatient R BLAYNE GALINDO [facility] [id number] Univers 09:30:00 10:26:40 ity of [facility] 2021-12-03 2021-12-03 Initial Blayne Galindo [facility] 1.2.143.318 [id number] Univers 09:30:00 10:26:40 Michael ALCALA 350.1.13.10 ity of [place] [id number] Id dical [facility] 134 [facility] 2021-12-03 2021-12-03 Orders Doctor HERBER 1.2.840.114 [id number] Univers 00:00:00 00:00:00 Only Unassigned, LEONILA 350.1.13.10 ity of [place] [facility] 4.2.7.2.686 Fro[place] as [phone] [address] 2021-12-01 2021-12-01 [facility] 1.2.996.166 [id number] Univers 00:00:00 00:00:00 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 R 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 350.1.13.10 ity of [facility] 4.2.7.2.686 [place] as MATERNAL [phone] Med ical & CHILD [address] [address] 2021-11-18 2021-11-18 Outpatient [facility] [id number] Univers 14:00:00 15:31:57 ROSHUNDA ity o f [facility] 2021-11-18 2021-11-18 Initial [facility] 1.2.840.114 [id number] Univers 14:00:00 15:31:57 Roshunda R 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 350.1.13.10 ity of Visit [facility] 4.2.7.2.686 [place] as MATERNAL [phone] [facility] ica & CHILD [address] [address] 2021-11-18 2021-11-18 Outpatient [facility] [id number] Univers 14:00:00 15:31:57 ROSHUNDA ity o f [facility] 2021-11-18 2021-11-18 Orders Doctor HERBER 1.2.840.114 [id number] Univers 00:00:00 00:00:00 Only Unassigned, LEONILA 350.1.13.10 ity of [place] [facility] 4.2.7.2.686 Fro[place] as [id number] [address] 2021-10-22 2021-10-22 Office [facility] 1.2.304.181 [id number] Univers 10:45:00 11:15:52 Visit Lisha Colmenares 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10 ity of [place] [address]686 [place] as [phone] [address] 2021-10-14 2021-10-14 Outpatient R AKINSIPE, [facility] [id number] Univers 09:30:00 09:30:00 LISHA pearcey o [facility] 2021-08-06 2021-08-06 Outpatient R AKINSIPE, [facility] [id number] Univers 09:00:00 09:00:00 LISHA ity o [facility] 2021-01-14 2021-01-14 Outpatient R AKINSIPE, [facility] [id number] Univers 09:15:00 09:15:00 LISHA ity o [facility] 2020-12-16 2020-12-16 Refill [facility] 1.2.083.235 [id number] Univers 00:00:00 00:00:00 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 350.1.13.10 ity of [place] [address].2.7.2.686 Froylan as MATERNAL [phone] [facility] [address] [address] 2020-10-16 2020-10-16 Telephone [facility] 1.2.840.114 [id number] Univers 00:00:00 00:00:00 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 350.1.13.10 ity of [facility] 4.2.7.2.686 [place] as MATERNAL [phone] [facility] ical & CHILD [address] [address] 2020-10-14 2020-10-14 Office [facility] 1.2.855.542 [id number] Univers 10:18:34 11:44:05 Visit Lisha Colmenares 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 350.1.13.10 ity of [facility] 4.2.7.2.686 [place] as MATERNAL [phone] [facility] CH[facility] [address] [address] 2020-10-14 2020-10-14 Outpatient R [facility] [id number] Univers 09:30:00 09:30:00 LISHA pearcey o f [facility] 2020-10-14 2020-10-14 Orders Doctor HERBER 1.2.840.114 [id number] Univers 00:00:00 00:00:00 Only Unassigned, LEONILA 350.1.13.10 ity of [place] [facility] 4.2.7.2.686 [place] as [phone] [address] Results Test Description Test Time Test Comments Results Result Comments Source RHO (D) IMMUNE GLOBULIN 2022-06-30 21:07:14 Test Item Value Reference Range Interpretation Comme nts RHIG CANDIDATE? (test code = No- see comment Patient is not a candidate for RhIg- 5055) Patient is Rh P ositive.Performed at [facility] Laboratory Services - [facility] Blood Yeaf147 [address] Free: [phone] A No. [id number] [facility] and Screen - ONCE [id number] 12:39:15 Test Item Value Reference Range Interpretation Comments ABO & RH (test code B Positive Performe d at [facility] = 20) Laboratory Serv [facility] Blood Bank1 [address] [id number] Free: [phone] A No. [id number] IAT (test code = Negative Performed a t [facility] 1185) Laboratory Serv [facility] Blood Bank1 [address] [place] [phone] Free: [phone] A No. [id number] [facility] URINALYSIS W/O SPECIFIC [id number] 16:43:00 Test Item Value Reference Range Interpretation Comments POCT PH U (test code = 3254) n/a 5-8 POCT U LEUK EST (test code = n/a Negative - Negative 3263) POCT U NIT (test code = 3262) n/a Negative - Negative POCT U PROT (test code = 3259) negative Negative - Negative POCT U GLU (test code = 3256) negative Negative - Negative POCT U KETONE (test code = 3258) n/a Negative - Negative POCT U BLD (test code = 3257) n/a Negative - Negative [facility] URINALYSIS W/O SPECIFIC [id number] 18:19:00 Test Item Value Reference Range Interpretation Comments POCT PH U (test code = 3254) 5 mg/dl 5-8 POCT U LEUK EST (test code = 1+ Negative - Negative 3263) POCT U NIT (test code = 3262) negative Negative - Negative POCT U PROT (test code = 3259) negative Negative - Negative POCT U GLU (test code = 3256) negative Negative - Negative POCT U KETONE (test code = 3258) negative Negative - Negative POCT U BLD (test code = 3257) negative Negative - Negative [facility] URINALYS[facility] W/O SPECIFIC [id number] 18:19:00 Test Item Value Reference Range Interpretation Comments POCT PH U (test code = 3254) 5 mg/dl 5-8 POCT U LEUK EST (test code = 1+ Negative - Negative 3263) POCT U NIT (test code = 3262) negative Negative - Negative POCT U PROT (test code = 3259) negative Negative - Negative POCT U GLU (test code = 3256) negative Negative - Negative POCT U KETONE (test code = 3258) negative Negative - Negative POCT U BLD (test code = 3257) negative Negative - Negative [facility] URINALYS[facility] W/O SPECIFIC [id number] 16:59:00 Test Item Value Reference Range Interpretation Comments POCT PH U (test code = 3254) n/a 5-8 POCT U LEUK EST (test code = n/a Negative - Negative 3263) POCT U NIT (test code = 3262) n/a Negative - Negative POCT U PROT (test code = 3259) Negative Negative - Negative POCT U GLU (test code = 3256) Normal Negative - Negative POCT U KETONE (test code = 3258) n/a Negative - Negative POCT U BLD (test code = 3257) n/a Negative - Negative [facility] URINALYSIS W/O SPECIFIC [id number] 16:59:00 Test Item Value Reference Range Interpretation Comments POCT PH U (test code = 3254) n/a 5-8 POCT U LEUK EST (test code = 3263) n/a Negative - Negative POCT U NIT (test code = 3262) n/a Negative - Negative POCT U PROT (test code = 3259) neg Negative - Negative POCT U GLU (test code = 3256) neg Negative - Negative POCT U KETONE (test code = 3258) n/a Negative - Negative POCT U BLD (test code = 3257) n/a Negative - Negative [facility] URINALYSIS W/O SPECIFIC [id number] 16:06:00 Test Item Value Reference Range Interpretation Comments POCT PH U (test code = 3254) n/a 5-8 POCT U LEUK EST (test code = n/a Negative - Negative 3263) POCT U NIT (test code = 3262) n/a Negative - Negative POCT U PROT (test code = 3259) negative Negative - Negative POCT U GLU (test code = 3256) negative Negative - Negative POCT U KETONE (test code = 3258) n/a Negative - Negative POCT U BLD (test code = 3257) n/a Negative - Negative [facility] [id number] 16:01:00 Test Item Value Reference Range Interpretation Comments POCT PH U (test code = 3254) n/a 5-8 POCT U LEUK EST (test code = n/a Negative - Negative 3263) POCT U NIT (test code = 3262) n/a Negative - Negative POCT U PROT (test code = 3259) Trace Negative - Negative POCT U GLU (test code = 3256) negative Negative - Negative POCT U KETONE (test code = 3258) n/a Negative - Negative POCT U BLD (test code = 3257) n/a Negative - Negative [facility] URINALYSIS W/O SPECIFIC [id number] 17:22:00 Test Item Value Reference Range Interpretation Comments POCT PH U (test code = 3254) 6 mg/dl 5-8 POCT U LEUK EST (test code = Negative Negative - Negative 3263) POCT U NIT (test code = 3262) Negative Negative - Negative POCT U PROT (test code = 3259) Trace Negative - Negative POCT U GLU (test code = 3256) Negative Negative - Negative POCT U KETONE (test code = 3258) Negative Negative - Negative POCT U BLD (test code = 3257) Negative Negative - Negative [facility] URINALYSIS W/O SPECIFIC [id number] 17:22:00 Test Item Value Reference Range Interpretation Comments POCT PH U (test code = 3254) n/a 5-8 POCT U LEUK EST (test code = n/a Negative - Negative 3263) POCT U NIT (test code = 3262) n/a Negative - Negative POCT U PROT (test code = 3259) Negative Negative - Negative POCT U GLU (test code = 3256) Normal Negative - Negative POCT U KETONE (test code = 3258) n/a Negative - Negative POCT U BLD (test code = 3257) n/a Negative - Negative [facility] SPECIFIC [id number] 15:49:00 Test Item Value Reference Range Interpretation Comments POCT PH U (test code = 3254) n/a 5-8 POCT U LEUK EST (test code = n/a Negative - Negative 3263) POCT U NIT (test code = 3262) n/a Negative - Negative POCT U PROT (test code = 3259) negative Negative - Negative POCT U GLU (test code = 3256) negative Negative - Negative POCT U KETONE (test code = 3258) n/a Negative - Negative POCT U BLD (test code = 3257) n/a Negative - Negative [facility] W/O SPECIFIC [id number] 17:07:00 Test Item Value Reference Range Interpretation Comments POCT PH U (test code = 3254) n/a 5-8 POCT U LEUK EST (test code = 3263) n/a Negative - Negative POCT U NIT (test code = 3262) n/a Negative - Negative POCT U PROT (test code = 3259) neg Negative - Negative POCT U GLU (test code = 3256) neg Negative - Negative POCT U KETONE (test code = 3258) n/a Negative - Negative POCT U BLD (test code = 3257) n/a Negative - Negative [facility] UR[facility] W/O SPECIFIC [id number] 21:23:00 Test Item Value Reference Range Interpretation Comments POCT PH U (test code = 3254) n/a 5-8 POCT U LEUK EST (test code = 3263) n/a Negative - Negative POCT U NIT (test code = 3262) n/a Negative - Negative POCT U PROT (test code = 3259) neg Negative - Negative POCT U GLU (test code = 3256) neg Negative - Negative POCT U KETONE (test code = 3258) n/a Negative - Negative POCT U BLD (test code = 3257) n/a Negative - Negative [facility] W/O SPECIFIC [id number] 15:00:00 Test Item Value Reference Range Interpretation Comments POCT PH U (test code = 3254) n/a 5-8 POCT U LEUK EST (test code = n/a Negative - Negative 3263) POCT U NIT (test code = 3262) n/a Negative - Negative POCT U PROT (test code = 3259) negative Negative - Negative POCT U GLU (test code = 3256) negaitve Negative - Negative POCT U KETONE (test code = 3258) n/a Negative - Negative POCT U BLD (test code = 3257) n/a Negative - Negative [facility]
[2022-12-14 11:02] LABS: SARS-CoV-2 Antigen Rapid Res Negative (Negative)
--- NOTE | 2022-12-14 11:10 | EDPHYS ---
Physician Documentation [facility] Name: Barbara Yin Age: 27 yrs Sex: Female : 1995 Arrival Date: 12/14/2022 Time: 10:22 Bed 12 Private MD: ROXY Physician Adan Marie HPI: 12/14 10:35 This 27 yrs old Female presents to ER via Ambulatory with complaints of Sore chivo Throat. 10:35 The patient presents with sore throat. The patient describes throat pain as constant. chivo Onset: The symptoms/episode began/occurred 2 day(s) ago. Severity of symptoms: At their worst the symptoms were mild, in the emergency department the symptoms are unchanged. Modifying factors: The symptoms are alleviated by nothing, the symptoms are aggravated by swallowing. Associated signs and symptoms: Pertinent positives: rhinorrhea, Sore throat. The patient has experienced similar episodes in the past, several times. Historical: - Allergies: 10:32 No Known Allergies; ph - PMHx: 10:32 GALLSTONES; ph - PSHx: 10:32 None; ph - Immunization history:: Adult Immunizations unknown. - Social history:: Smoking status: Patient denies any tobacco usage or history of. ROS: 10:36 Constitutional: Negative for fever, chills, and weight loss, Eyes: Negative for injury, chivo pain, redness, and discharge, Neck: Negative for injury, pain, and swelling, Cardiovascular: Negative for chest pain, palpitations, and edema, Respiratory: Negative for shortness of breath, cough, wheezing, and pleuritic chest pain, Abdomen/GI: Negative for abdominal pain, nausea, vomiting, diarrhea, and constipation, Back: Negative for injury and pain, : Negative for injury, bleeding, discharge, and swelling, MS/Extremity: Negative for injury and deformity, Skin: Negative for injury, rash, and discoloration, Neuro: Negative for headache, weakness, numbness, tingling, and seizure, Psych: Negative for depression, anxiety, suicide ideation, homicidal ideation, and hallucinations, Allergy/Immunology: Negative for hives, rash, and allergies, Endocrine: Negative for neck swelling, polydipsia, polyuria, polyphagia, and marked weight changes, Hematologic/Lymphatic: Negative for swollen nodes, abnormal bleeding, and unusual bruising. 10:36 ENT: Positive for rhinorrhea, sinus congestion, sore throat. Exam: 10:36 Constitutional: This is a well developed, well nourished patient who is awake, alert, chivo and in no acute distress. Head/Face: Normocephalic, atraumatic. Eyes: Pupils equal round and reactive to light, extra-ocular motions intact. Lids and lashes normal. Conjunctiva and sclera are non-icteric and not injected. Cornea within normal limits. Periorbital areas with no swelling, redness, or edema. Neck: Trachea midline, no thyromegaly or masses palpated, and no cervical lymphadenopathy. Supple, full range of motion without nuchal rigidity, or vertebral point tenderness. No Meningismus. Chest/axilla: Normal chest wall appearance and motion. Nontender with no deformity. No lesions are appreciated. Cardiovascular: Regular rate and rhythm with a normal S1 and S2. No gallops, murmurs, or rubs. Normal PMI, no JVD. No pulse deficits. Respiratory: Lungs have equal breath sounds bilaterally, clear to auscultation and percussion. No rales, rhonchi or wheezes noted. No increased work of breathing, no retractions or nasal flaring. Abdomen/GI: Soft, non-tender, with normal bowel sounds. No distension or tympany. No guarding or rebound. No evidence of tenderness throughout. Back: No spinal tenderness. No costovertebral tenderness. Full range of motion. Skin: Warm, dry with normal turgor. Normal color with no rashes, no lesions, and no evidence of cellulitis. MS/ Extremity: Pulses equal, no cyanosis. Neurovascular intact. Full, normal range of motion. Neuro: Awake and alert, GCS 15, oriented to person, place, time, and situation. Cranial nerves II-XII grossly intact. Motor strength 5/5 in all extremities. Sensory grossly intact. Cerebellar exam normal. Normal gait. Psych: Awake, alert, with orientation to person, place and time. Behavior, mood, and affect are within normal limits. 10:36 ENT: Posterior pharynx: Airway: normal, Tonsils: are normal in appearance, Uvula: normal, swelling, is not appreciated, erythema, that is mild, exudate, is not appreciated, peritonsillar mass, is not appreciated, pooling of secretions, is not appreciated. Vital Signs: 10:29 BP 112 / 70; Pulse 56; Resp 18; Temp 98.1; Pulse Ox 100% on R/A; Weight 92.08 kg; vc1 Height 5 ft. 5 in. ; 11:40 BP 114 / 68; Pulse 57; Resp 18; Temp 97.3; Pulse Ox 99% on R/A; ph 10:29 Body Mass Index 33.78 (92.08 kg, 165.1 cm) vc1 MDM: 10:25 Patient medically screened. [facility] 10:38 Differential diagnosis: Allergic rhinitis, apthous stomatitis, bronchitis, group A chivo strep tonsillitis, influenza, laryngitis, peritonsillar abscess pharyngitis. Differential Diagnosis sepsis, flu. Data reviewed: vital signs, nurses notes, lab test result(s). Consideration of Admission/Observation Escalation of care including admission/observation considered. I considered the following discharge prescriptions or medication management in the emergency department Medications were administered in the Emergency Department. See MAR. Test considered but Not performed: EKG: no ekg. Historians other than the Patient: [atient. Care significantly affected by the following chronic conditions: gallstones. 12/14 10:26 Order name: Strep chivo 12/14 10:26 Order name: SARS RAPID; Complete Time: 11:09 [facility] 12/14 11:03 Order name: Throat Culture EDMS Administered Medications: 11:49 Drug: AZITHromycin PO 500 mg Route: PO; ph 11:50 Follow up: Response: No adverse reaction; Medication administered at discharge. ph Disposition Summary: 12/14/22 11:10 Discharge Ordered Location: Home [facility] Problem: new chivo Symptoms: have improved chivo Condition: Stable chivo Diagnosis - Acute pharyngitis, unspecified chivo - Acute upper respiratory infection, unspecified chivo Followup: chivo - With: Private Physician - When: 2 - 3 days - Reason: Recheck today's complaints, Continuance of care, Re-evaluation by your physician Discharge Instructions: - Discharge Summary Sheet chivo - Sore Throat chivo - Strep Throat, Adult chivo - Upper Respiratory Infection, Adult chivo - Cool Mist Vaporizer chivo - Upper Respiratory Infection, Adult, [id number] chivo - Pharyngitis, [id number] chivo - Cough, Adult chivo - Sore Throat, [id number] chivo Forms: - Medication Reconciliation Form chivo - Thank You Letter chivo - Antibiotic Education chivo - Prescription Opioid Use chivo - Patient Portal Instructions chivo - Leadership Thank You Letter chivo - Work release form Prescriptions: - Patience-D 12 Hour 60-120 mg Oral Tablet Sustained Release 12 hr - take 1 tablet by ORAL route every 12 hours As needed; 20 tablet; Refills: 0, [facility] Product Selection Permitted - Zithromax Z-Ruel 250 mg Oral Tablet - take 1 tablet by ORAL route as directed for 5 days Day 1 - take two (2) tablets [facility] one time. Day 2, 3, 4 , 5 take one (1) tablet once daily.; 6 tablet; Refills: 0, Product Selection Permitted - Medrol (Ruel) 4 mg Oral Tablets, Dose Pack - take 1 tablet by ORAL route as directed - follow package instructions; 1 [facility] packet; Refills: 0, Product Selection Permitted Signatures: Dispatcher [employer] Adan Kearney MD MD cha Hall, Patricia RN RN ph
--- NOTE | 2022-12-14 11:10 | ER ---
Nurse's Notes [facility] Name: Barbara Yin Age: 27 yrs Sex: Female : 1995 Arrival Date: 12/14/2022 Time: 10:22 Bed 12 Private MD: Diagnosis: Acute pharyngitis, unspecified;Acute upper respiratory infection, unspecified Presentation: 12/14 10:29 Chief complaint: Patient states: Sore throat x 3 days, denies other symtoms. vc1 Coronavirus screen: Vaccine status: Patient reports receiving the 2nd dose of the covid vaccine. Ebola Screen: No symptoms or risks identified at this time. Initial Sepsis Screen: Does the patient meet any 2 criteria? No. Patient's initial sepsis screen is negative. Does the patient have a suspected source of infection? No. Patient's initial sepsis screen is negative. Risk Assessment: Do you want to hurt yourself or someone else? Patient reports no desire to harm self or others. Onset of symptoms was December 14, 2022. 10:29 Method Of Arrival: Ambulatory vc1 10:29 Acuity: CYNDIE 4 vc1 Triage Assessment: 10:32 General: Appears in no apparent distress. comfortable, Behavior is calm, cooperative, ph appropriate for age, Denies fever. Pain: Complains of pain in throat. EENT: Reports pain when swallowing Denies nasal congestion, nasal discharge. Neuro: Level of Consciousness is awake, alert, obeys commands, Oriented to person, place, time, situation. Cardiovascular: Capillary refill < 3 seconds in bilateral Patient's skin is warm and dry. Respiratory: Airway is patent Respiratory effort is even, unlabored. GI: Patient currently denies nausea, vomiting. Musculoskeletal: Circulation, motion, and sensation intact. Range of motion: intact in all extremities. Historical: - Allergies: 10:32 No Known Allergies; ph - PMHx: 10:32 GALLSTONES; ph - PSHx: 10:32 None; ph - Immunization history:: Adult Immunizations unknown. - Social history:: Smoking status: Patient denies any tobacco usage or history of. Screenin:34 [facility] ED Fall Risk Assessment (Adult) History of falling in the last 3 months, ph including since admission No falls in past 3 months (0 pts) Confusion or Disorientation No (0 pts) Intoxicated or Sedated No (0 pts) Impaired Gait No (0 pts) Mobility Assist Device Used No (0 pt) Altered Elimination No (0 pt) Score/Fall Risk Level 0 - 2 = Low Risk Oriented to surroundings, Maintained a safe environment, Hourly rounding (assess needs \T\ fall precautionary measures) done. Abuse screen: Denies threats or abuse. Denies injuries from another. Nutritional screening: No deficits noted. Tuberculosis screening: No symptoms or risk factors identified. Assessment: 10:34 General: SEE TRIAGE ASSESSMENT. ph Vital Signs: 10:29 BP 112 / 70; Pulse 56; Resp 18; Temp 98.1; Pulse Ox 100% on R/A; Weight 92.08 kg; vc1 Height 5 ft. 5 in. ; 11:40 BP 114 / 68; Pulse 57; Resp 18; Temp 97.3; Pulse Ox 99% on R/A; ph 10:29 Body Mass Index 33.78 (92.08 kg, 165.1 cm) vc1 ED Course: 10:24 Patient arrived in ED. mg5 10:25 Adan Marie MD is Attending Physician. [facility] 10:30 Triage completed. vc1 10:32 Shena Bo, RN is Primary Nurse. ph 10:34 Arm band placed on Patient placed in an exam room. ph 10:35 Patient has correct armband on for positive identification. Bed in low position. Call ph light in reach. Side rails up X 1. 11:00 No provider procedures requiring assistance completed. Patient did not have IV access ph during this emergency room visit. Administered Medications: 11:49 Drug: AZITHromycin PO 500 mg Route: PO; ph 11:50 Follow up: Response: No adverse reaction; Medication administered at discharge. ph Medication: 10:34 VIS not applicable for this client. ph Outcome: 11:10 Discharge ordered by . chivo 11:50 Patient left the ED. ph 11:50 Discharged to home ambulatory. ph 11:50 Condition: good 11:50 Discharge instructions given to patient, Instructed on discharge instructions, follow up and referral plans. medication usage, Demonstrated understanding of instructions, follow-up care, medications, Prescriptions given X 3. Signatures: Adan Marie MD MD cha Hall, Patricia, RN RN Debbie Hodge RN RN vc1 Veronica Fan 5
[2022-12-14 12:08] VITALS: BP 112/70; TEMP 98.1; O2SAT 100
== END 2022-12-14 11:50 | disposition home or self-care (01) ==
LOC: ER 10:22
DX: J02.9 Acute pharyngitis, unspecified (principal); J06.9 Acute upper respiratory infection, unspecified; Z20.822 Contact with and (suspected) exposure to COVID-19
CPT/HCPCS: 36415; 87070; 87081; 87811; 99283

== ENCOUNTER 2023-12-23 20:55 | Emergency (ER) | payer OTHER ==
[2023-12-23] MEDS ORDERED: LIDOCAINE 1% 20 ML MDV ONE (21:40)
--- NOTE | 2023-12-23 22:17 | ER ---
Nurse's Notes [facility] Name: Barbara Yin Age: 28 yrs Sex: Female : 1995 Arrival Date: 12/23/2023 Time: 20:55 Bed 18 Private MD: Diagnosis: Foreign body heel of the left Foot, Glass fragment embedded into heel of the left foot , Visit for Foreign body removal Presentation: 12/22 21:14 Chief complaint: Patient states: stepped on glass yesterday left foot. Patient feels kj2 like she still has glass in left foot. Coronavirus screen: At this time, the client does not indicate any symptoms associated with coronavirus-19. Ebola Screen: No symptoms or risks identified at this time. Initial Sepsis Screen: Does the patient meet any 2 criteria? No. Patient's initial sepsis screen is negative. Does the patient have a suspected source of infection? No. Patient's initial sepsis screen is negative. Risk Assessment: Do you want to hurt yourself or someone else? Patient reports no desire to harm self or others. Onset of symptoms was December 21, 2023. 21:14 Method Of Arrival: Ambulatory kj2 21:14 Acuity: CYNDIE 4 kj2 Triage Assessment: 21:18 General: Appears in no apparent distress. Behavior is calm, cooperative. Neuro: Level kj2 of Consciousness is awake, alert, obeys commands, Oriented to person, place, time, situation. Respiratory: Airway is patent Respiratory effort is even, unlabored, Respiratory pattern is regular. Historical: - Allergies: 21:17 No Known Allergies; kj2 - Home Meds: 21:17 None [Active]; kj2 - PMHx: 21:17 GALLSTONES; kj2 - PSHx: 21:17 None; kj2 - Immunization history:: Adult Immunizations unknown. - Infectious Disease History:: Denies. - Social history:: Smoking status: Patient denies any tobacco usage or history of. Patient/guardian denies using. - Family history:: not pertinent. Screenin:30 [facility] ED Fall Risk Assessment (Adult) History of falling in the last 3 months, jm12 including since admission No falls in past 3 months (0 pts) Confusion or Disorientation No (0 pts) Intoxicated or Sedated No (0 pts) Impaired Gait No (0 pts) Mobility Assist Device Used No (0 pt) Altered Elimination No (0 pt) Score/Fall Risk Level 0 - 2 = Low Risk. 22:30 Abuse screen: Denies threats or abuse. Denies injuries from another. Nutritional jm12 screening: No deficits noted. Tuberculosis screening: No symptoms or risk factors identified. Assessment: 21:24 General: Appears in no apparent distress. Behavior is calm, cooperative. Pain: jm12 Complains of pain in left foot. Neuro: No deficits noted. Cardiovascular: No deficits noted. Respiratory: No deficits noted. GI: No deficits noted. No signs and/or symptoms were reported involving the gastrointestinal system. : No deficits noted. No signs and/or symptoms were reported regarding the genitourinary system. EENT: No deficits noted. No signs and/or symptoms were reported regarding the EENT system. Derm: Reports pain. Musculoskeletal: Reports pain in left foot. Vital Signs: 21:14 BP 121 / 64; Pulse 62; Resp 18; Temp 98.5; Pulse Ox 99% on R/A; Height 5 ft. 5 in. ; kj2 Pain 0/10; 22:40 BP 118 / 62; Pulse 60; Resp 16; Temp 98.4; Pulse Ox 100% ; Pain 0/10; jm12 21:14 Pain Scale: Adult kj2 22:40 Pain Scale: Adult jm12 ED Course: 20:58 Patient arrived in ED. im 21:01 Chidi Kirby MD is Attending Physician. sp4 21:17 Triage completed. kj2 21:19 Arm band placed on Patient placed in an exam room, on a stretcher. kj2 Administered Medications: 22:10 Drug: Lidocaine Infiltration (1 %) 20 ml 20 ml Infiltration once; to bedside Volume: 20 jm12 ml; Route: Infiltration; 22:11 Drug: Lidocaine Infiltration (1 %) 20 ml 20 ml Infiltration once; to bedside Volume: 20 jm12 ml; Route: Infiltration; 22:25 Drug: Ibuprofen PO 800 mg PO once Route: PO; jm12 22:25 Drug: Trimethoprim-Sulfamethoxazole PO (160 mg-800 mg (DS) 1 tablet PO once Route: PO; jm12 Outcome: 22:16 Discharge ordered by . sp4 22:54 Discharged to home ambulatory, [facility] 22:54 Condition: stable 22:54 Discharge instructions given to patient, Instructed on discharge instructions, follow up and referral plans. Demonstrated understanding of instructions, follow-up care, medications, Prescriptions given X 2, 22:55 Patient left the ED. jm12 Signatures: Chidi Kirby MD MD sp4 Alejandra Clarke Krystal, RN RN kj2 Brittaney Valdez RN RN jm12
--- NOTE | 2023-12-23 22:17 | EDPHYS ---
Physician Documentation [facility] Name: Barbara Yin Age: 28 yrs Sex: Female : 1995 Arrival Date: 12/23/2023 Time: 20:55 Bed 18 Private MD: ED Physician Chidi Kirby HPI: 12/22 21:01 This 28 yrs old Female presents to ER via Unassigned with complaints of sp4 Foreign Body - in left foot piece of glass. 22:17 Patient is a very pleasant 28-year-old female presents for left heel pain and reports sp4 that she may be having glass fragment in the left foot heel after stepping on a broken night light at home. Patient reports pain on ambulation with left foot and puncture wound directly in the skin of the heel of left foot . Historical: - Allergies: 21:17 No Known Allergies; kj2 - Home Meds: 21:17 None [Active]; kj2 - PMHx: 21:17 GALLSTONES; kj2 - PSHx: 21:17 None; kj2 - Immunization history:: Adult Immunizations unknown. - Infectious Disease History:: Denies. - Social history:: Smoking status: Patient denies any tobacco usage or history of. Patient/guardian denies using. - Family history:: not pertinent. ROS: 22:17 Constitutional: Negative for fever, chills, and weight loss, positive for left foot sp4 with puncture wound, positive presumed foreign body left foot 22:17 All other systems are negative, Exam: 22:17 Constitutional: This is a well developed, well nourished patient who is awake, alert, sp4 and in no acute distress. Head/Face: Normocephalic, atraumatic. Eyes: Pupils equal round and reactive to light, extra-ocular motions intact. Lids and lashes normal. Conjunctiva and sclera are not injected. Cornea within normal limits. Periorbital areas with no swelling, redness, or edema. ENT: Nares patent. No nasal discharge, no septal abnormalities noted. Tympanic membranes are normal and external auditory canals are clear. Oropharynx with no redness, swelling, or masses, exudates, or evidence of obstruction, uvula midline. Mucous membranes moist. Neck: Trachea midline, no thyromegaly or masses palpated, and no cervical lymphadenopathy. Supple, full range of motion without nuchal rigidity, or vertebral point tenderness. Chest/axilla: Normal chest wall appearance and motion. Nontender with no deformity. No lesions are appreciated. Cardiovascular: Regular rate and rhythm with a normal S1 and S2. No gallops, murmurs, or rubs. Normal PMI, no JVD. No pulse deficits. Respiratory: Lungs have equal breath sounds bilaterally, clear to auscultation and percussion. No rales, rhonchi or wheezes noted. No increased work of breathing, no retractions or nasal flaring. Abdomen/GI: Soft, with normal bowel sounds. No distension or tympany. No guarding or rebound. No evidence of tenderness throughout. Back: No spinal tenderness. No costovertebral tenderness. Skin: Warm, dry with normal turgor. Normal color with no rashes, no lesions, and no evidence of cellulitis. MS/ Extremity: Pulses equal, no cyanosis. Neurovascular intact. Full, normal range of motion. Positive puncture wound heel of the left foot with associated embedded glass fragment in the left heel Neuro: Awake and alert, GCS 15, oriented to person, place, time, and situation. Cranial nerves II-XII grossly intact. Motor strength 5/5 in all extremities. Sensory grossly intact. Psych: Awake, alert, with orientation to person, place and time. Behavior, mood, and affect are within normal limits Vital Signs: 21:14 BP 121 / 64; Pulse 62; Resp 18; Temp 98.5; Pulse Ox 99% on R/A; Height 5 ft. 5 in. ; kj2 Pain 0/10; 22:40 BP 118 / 62; Pulse 60; Resp 16; Temp 98.4; Pulse Ox 100% ; Pain 0/10; jm12 21:14 Pain Scale: Adult kj2 22:40 Pain Scale: Adult jm12 Procedures: 22:13 Foreign Body Removal: Glass fragment from reported night light , Heel of the left foot sp4 , from the left heel of left foot - glass embedded into the heel of the left foot , by using a hemostat, Dressinx4s were used to dress the wound, Kerlix Wrap , The patient tolerated the removal well, Pointed 1 cm Long needle like glass fragment was removed from the left heel , No complications . MDM: 21:02 Patient medically screened. sp4 22:17 Data reviewed: vital signs, nurses notes, old medical records. ED course: Approximately sp4 1 cm long needle -like glass fragment was removed from the heel of the left foot. Was strongly advised to get updated on tetanus booster. Patient declined tetanus booster. Patient will be prescribed Bactrim twice a day for 10 days. Patient strongly advised to consider returning for tetanus booster. Cognitively she may be able to follow-up with primary care physician for tetanus booster. Twice daily dressing changes.. 12/22 21:36 Order name: Dressing - Wound; Complete Time: 21:47 sp4 12/22 21:36 Order name: Gloves, Sterile; Complete Time: 21:48 sp4 12/22 21:36 Order name: Setup Suture Tray; Complete Time: 21:47 sp4 Administered Medications: 22:10 Drug: Lidocaine Infiltration (1 %) 20 ml 20 ml Infiltration once; to bedside Volume: 20 jm12 ml; Route: Infiltration; 22:11 Drug: Lidocaine Infiltration (1 %) 20 ml 20 ml Infiltration once; to bedside Volume: 20 jm12 ml; Route: Infiltration; 22:25 Drug: Ibuprofen PO 800 mg PO once Route: PO; jm12 22:25 Drug: Trimethoprim-Sulfamethoxazole PO (160 mg-800 mg (DS) 1 tablet PO once Route: PO; jm12 Disposition Summary: 12/23/23 22:16 Discharge Ordered Notes: Location: Home sp4 Problem: new sp4 Symptoms: have improved sp4 Condition: Stable sp4 Diagnosis - Foreign body heel of the left Foot, Glass fragment embedded into heel of the sp4 left foot , Visit for Foreign body removal Followup: sp4 - With: Private Physician - When: 7 - 10 days - Reason: Recheck today's complaints Discharge Instructions: - Discharge Summary Sheet sp4 - Puncture Wound, [id number] sp4 Forms: - Patient Portal Instructions sp4 Prescriptions: - Ibuprofen 800 mg Oral Tablet - take 1 tablet ORAL route every 8 hours As needed take with food; 30 tablet; sp4 Refills: 0, Product Selection Permitted - Bactrim DS 800-160 mg Oral Tablet - take 1 tablet ORAL route every 12 hours for 10 days; 20 tablet; Refills: 0, sp4 Product Selection Permitted Signatures: Chidi Kirby MD MD sp4 Emily Hidalgo RN RN kj2 Markee, Brittaney, RN RN jm12
[2023-12-23] MEDS ORDERED: SMZ./TMP. 800/160 MG TABLET ONE (22:20)
[2023-12-23] MEDS ORDERED: IBUPROFEN 400 MG TAB ONE (22:20)
[2023-12-23 23:03] VITALS: BP 118/62; TEMP 98.4; O2SAT 100
== END 2023-12-23 22:55 | disposition home or self-care (01) ==
LOC: ER 20:55
DX: S90.852A Superficial foreign body, left foot, initial encounter (principal)
CPT/HCPCS: 99283; J2001

== ENCOUNTER 2024-04-15 06:00 | Emergency (ER) | payer OTHER ==
--- OUTSIDE RECORDS SUMMARY | 2024-04-15 06:05 | XMS REPORT | Continuity of Care Document ---
Author Name Unknown Address [address] [facility] [address] [place] [address] [facility] thconnect Address [address] [facility] [address] [place] [address] Care Team Providers Care Production Team Advisor Name Role Phone LISHA MARQUEZ Primary Care Physician Unav audraable BLAYNE GALINDO Attending Clinician Unavailable BLAYNE GALINDO Attending Clinician Unavailable Doctor Unassigned, [place] Attending Clinician U Beatriz Valencia PA-C Attending Clinician BEATRIZ ANGLIN Attending Clinician Unavailable LISHA MARQUEZ Attending Clinician Unavail able Nurse, [facility] Attending Clinician Un available Pob, [facility] Attending Clinician UnavailJANY Lopez Attending Clinician JANY Smith Attending Clinician Sonia Lopes MA Attending Clinician Unavail able 2, [facility] Attending Clinician Unavailable Ultrasound, [facility] Mf Attending Clinician Diane Ye MD, We[place] Attending Clinician + SYDNEY ELLINGTON Attending Clinician Unav ailable Ultrasound, [facility] Attending Clinician Diane Bhakta MD, [place] Attending Clinician [phone] MERRITT BHAKTA Attending Clinician Unavailable MERRITT BHAKTA Attending Clinician Unavailable 2, [facility] Attending Clinician Di Koch MD Attending Clinician + DI ELY Attending Clinician Unav ailable Akinsipe WHCNP, Lisha C Attending Clinician + Lisbet Esparza RN Attending Clinician Unavailable BRITT BROWN Attending Clinician Unavailab Britt Gabriel Attending Clinician BLAYNE GALINDO Admitting Clinician Unavailable Blayne Galindo MD Admitting Clinician Payers Payer Name Policy Type Policy Number Effective Date Expirati on Date Source [facility]DJ [facility] [id number] 2021 00:00:00 MEDICAID PENDING PENDING 2021 00:00:00 [place] [id number] 2021 00:00:00 Problems Condition Name Condition Details Condition Category Status Onset Date Resolution Date Last Treatment Date Treating Clinician Comments Source Nexplanon in place Nexplanon in place Disease Active 2022-05 1-13 00:00: 00 [facility] Liveborn infant, of ferreira , born in hospital by vaginal delivery Liveborn , of ferreira , born in hospital by vaginal delivery Disease Active 2-28 00:00: 00 [facility] Uterine contractio ns Uterine contractio ns Disease Active 2-25 00:00: 00 [facility] 39 weeks gestation of 39 weeks gestation of Disease Active 2-25 00:00: 00 [facility] Low back pain during in third trimester Low back pain during in third trimester Disease Active 2021-05- 00:00: 00 [facility] Supervisio n of high risk , antepartum Supervisio n of high risk , antepartum Disease Active 11-18 00:00: 00 [facility] Primigravi da in first trimester Primigravi da in first trimester Disease Active 11-18 00:00: 00 [facility] Nausea without vomiting Nausea without vomiting Disease Active 11-18 00:00: 00 [facility] Obesity in Obesity in Disease Active 11-18 00:00: 00 [facility] Obesity (BMI 30-39.9) Obesity (BMI 30-39.9) Disease Active 11-18 00:00: 00 [facility] Chlamydia Chlamydia Disease Active 16 00:00: 00 [facility] Obesity (BMI 30.0-34.9) Obesity (BMI 30.0-34.9) Disease Active 614 00:00: 00 [facility] Encounter for other general counseling or advice on contracept ion Encounter for other general counseling or advice on contracept ion Disease Active 2-21 00:00: 00 [facility] Allergies, Adverse Reactions, Alerts Allergy Name Allergy Type Status Severity Reaction(s) Onset Date Inactive Date Treating Clinician Comments Source NO KNOWN ALLERGIE S Drug Class Active [facility] Social History Social Habit Start Date Stop Date Quantity Comments Source ASSERTION 2021-10-13 00:00:00 [facility] 2023-03-15 00:00:00 2023-03-15 00:00:00 Current non-drinker of alcohol (finding) [facility] History of Social function 2023-02-22 00:00:00 2023-02-22 00:00:00 [facility] Alcohol Comment 2023-02-22 00:00:00 2023-02-22 00:00:00 socially [facility] Exposure to SARS-CoV-2 (event) 2022-09-20 00:00:00 2022-09-30 10:17:00 Not sure [facility] Tobacco use and exposure 2021-11-18 00:00:00 2021-11-18 00:00:00 Smokeless tobacco non-user [facility] Sex Assigned At 1995 00:00:00 1995 00:00:00 [facility] Smoking Status Start Date Stop Date Source Never smoked tobacco [facility] Medications Ordered Medication Name Filled Medication Name Start Date Stop Date Current Medication? Ordering Clinician Indication Dosage Frequency Signature (SIG) Comments Components Source etonogestre L (NEXPLANON) implant 68 mg 2022-05 01:30: 00 03-16 01:26 :00 No [id number] 68mg [facility] GUSTAVO-D 60-120 mg per tablet 12-14 00:00: 00 Yes TAKE 1 TABLET BY MOUTH EVERY 12 HOURS NEEDED FOR ALLERGY [facility] medroxyPROG ESTERone (DEPO-PROVE RA) syringe 150 mg 09-30 16:30: 00 09-30 15:51 :00 No [id number] 150mg [facility] medroxyPROG ESTERone (DEPO-PROVE RA) injection 150 mg 07-01 17:30: 00 Yes 150mg 150 mg, Intramuscu lar, [id number], First dose on Wed07/01/22 at 1130, Until Discontinu ed, Routine [facility] vitamin w/FA tablet 07-01 00:00: 00 Yes [id number] 1{tbl} Take 1 tablet by mouth in the morning. [facility] docusate 100 mg capsule 07-01 00:00: 00 Yes [id number] 200mg Take 2 capsules by mouth once daily as needed for Constipati on. [facility] ferrous sulfate 325 mg (65 mg iron) tablet 07-01 00:00: 00 Yes [id number] 325mg Take 1 tablet by mouth in the morning and 1 tablet in the evening. [facility] ibuprofen 600 mg tablet 07-01 00:00: 00 Yes [id number] 600mg Take 1 tablet by mouth every 6 (six) hours as needed (Pain). Take with food or milk. [facility] vitamin w/FA tablet 07-01 00:00: 00 Yes [id number] 1{tbl} Take 1 tablet by mouth in the morning. [facility] rho(D) immune globulin (RHOGAM) syringe 300 mcg 06-30 17:06: 47 Yes 300ug 300 mcg, Intramuscu lar, ONCE, For 1 dose, Conditiona l, Routine [facility] witch Kenzie (TUCKS) 50 % topical pad 06-30 17:06: 41 Yes Topical, Q4HPRN, Starting on Wed06/30/22 at 1106, Until Discontinu ed, Routine, rectal/hem orrhoidal pain [facility] HYDROcodone -acetaminop hen (NORCO 5) 5-325 mg tablet 1 tablet 06-30 17:06: 41 Yes 1{tbl} 1 tablet, Oral, Q6HPRN, Starting on Wed06/30/22 at 1106, Until Discontinu ed, Routine, Pain (scale 7-10) [facility] ibuprofen (IBU) tablet 600 mg 06-30 17:06: 41 Yes 600mg 600 mg, Oral, Q6HPRN, Starting on Wed06/30/22 at 1106, Until Discontinu ed, Routine, Pain (scale 4-6) [facility] acetaminoph en (TYLENOL) tablet 650 mg 06-30 17:06: 41 Yes 650mg 650 mg, Oral, Q6HPRN, Starting on Wed06/30/22 at 1106, Until Discontinu ed, Routine, Pain (scale 1-3) [facility] diphenhydrA MINE (BENADRYL) tablet 25 mg 06-30 17:06: 41 Yes 25mg 25 mg, Oral, Q6HPRN, Starting on Wed06/30/22 at 1106, Until Discontinu ed, Routine, Sleep, Itching [facility] ondansetron (ZOFRAN (PF)) injection 4 mg 06-30 17:06: 41 Yes 4mg 4 mg, Slow IV Push, Q8HPRN, Starting on Wed06/30/22 at 1106, Until Discontinu ed, Routine, Nausea and Vomiting (N/V) [facility] simethicone (GAS RELIEF (SIMETHICON E)) chewable tablet 160 mg 06-30 17:06: 41 Yes 160mg 160 mg, Oral, PC+HSPRN, Starting on Wed06/30/22 at 1106, Until Discontinu ed, Routine, Gas [facility] docusate (COLACE) capsule 200 mg 06-30 17:06: 41 Yes 200mg 200 mg, Oral, QDAILYPRN, Starting on Wed06/30/22 at 1106, Until Discontinu ed, Routine, Constipati on [facility] magnesium hydroxide (MILK OF MAGNESIA) 400 mg/5 mL suspension 30 mL 06-30 17:06: 41 Yes 30mL 30 mL, Oral, QDAILYPRN, Starting on Wed06/30/22 at 1106, Until Discontinu ed, Routine, Constipati on [facility] benzocaine- menthol (DERMOPLAST ) 20-0.5 % topical spray 06-30 17:06: 41 Yes Topical, PRN, Starting on Wed06/30/22 at 1106, Until Discontinu ed, Routine, Perineum discomfort [facility] oxytocin (PITOCIN) 30 units in NS 500 mL IV infusion 06-30 11:00: 00 06-30 17:06 :44 No 2mU/min at 2-40 mL/hr, IV Infusion, TITRATE, Starting on Wed06/30/22 at 0500, Until Wed06/30/22 at 1106, FABRICE [facility] misoprostol (CYTOTEC) quarter-tab let 25 mcg 06-30 06:15: 00 06-30 06:56 :00 No 25ug 25 mcg, Oral, ONCE, 1 dose, On Wed06/30/22 at 0015, Routine [facility] FENTanyl PF (SUBLIMAZE (PF)) injection 100 mcg 06-30 06:09: 34 06-30 17:06 :44 No 100ug 100 mcg, Slow IV Push, Q1HPRN, Starting on Wed06/30/22 at 0009, Until Wed06/30/22 at 1106, Routine, contractio n pain without an epidural and SVE < 8 cm and Cat I strip [facility] D5W-LR IV infusion 1,000 mL 06-30 06:09: 34 06-30 17:06 :44 No 1000mL at 1-125 mL/hr, IV Infusion, TITRATE, Starting on Wed06/30/22 at 0009, Until Wed06/30/22 at 1106, Routine [facility] cephALEXin 500 mg capsule 2-20 00:00: 00 06-30 05:59 :00 No [id number] 500mg Take 1 capsule by mouth 4 (four) times daily for 7 days. [facility] cefTRIAXone (ROCEPHIN) injection 500 mg 06-17 20:32: 00 06-17 20:33 :00 No [id number] 500mg [facility] cefTRIAXone (ROCEPHIN) injection 500 mg - 20:00: 00 06-17 20:30 :20 No [id number] 500mg [facility] azithromyci n 500 mg tablet -14 00:00: 00 06-18 05:59 :00 No [id number] 1000mg Take 2 tablets by mouth in the morning for 1 day. [facility] vit no.124/iron /folic ( VITAMIN ORAL) 12-01 08:13: 31 12-01 00:00 :00 No Take by mouth. [facility] vit 33-iron-fol ic-dha (SELECT-OB + DHA) 29 mg iron-1 mg -250 mg combo pack 12-01 00:00: 00 07-01 00:00 :00 No [id number] 1{packe t} Take 1 Packet by mouth in the morning. [facility] proMETHazin e 25 mg tablet 12-01 00:00: 00 02-25 00:00 :00 No [id number] 25mg Take 1 tablet by mouth every 4 (four) hours as needed for Nausea and Vomiting (N/V). [facility] Immunizations Ordered Immunization Name Filled Immunization Name Date Status Comments Source HPV9 2021-10-22 00:00:00 Completed [facility] HPV9 2021-10-22 00:00:00 Completed [facility] HPV9 2021-10-22 00:00:00 Completed [facility] HPV9 2021-10-22 00:00:00 Completed [facility] HPV9 2021-10-22 00:00:00 Completed [facility] HPV9 2021-10-22 00:00:00 Completed [facility] HPV9 2021-10-22 00:00:00 Completed [facility] HPV9 2021-10-22 00:00:00 Completed [facility] HPV9 2021-10-22 00:00:00 Completed [facility] HPV9 2021-10-22 00:00:00 Completed [facility] HPV9 2021-10-22 00:00:00 Completed [facility] HPV9 2021-10-22 00:00:00 Completed [facility] HPV9 2021-10-22 00:00:00 Completed [facility] HPV9 2021-10-22 00:00:00 Completed [facility] HPV9 2021-10-22 00:00:00 Completed [facility] HPV9 2021-10-22 00:00:00 Completed [facility] HPV9 2021-10-22 00:00:00 Completed [facility] HPV9 2021-10-22 00:00:00 Completed [facility] HPV9 2021-10-22 00:00:00 Completed [facility] HPV9 2021-10-22 00:00:00 Completed [facility] HPV9 2021-10-22 00:00:00 Completed [facility] HPV9 2021-10-22 00:00:00 Completed [facility] HPV9 2021-10-22 00:00:00 Completed [facility] HPV9 2021-10-22 00:00:00 Completed [facility] HPV9 2021-10-22 00:00:00 Completed [facility] HPV9 2021-10-22 00:00:00 Completed [facility] HPV9 2021-10-22 00:00:00 Completed [facility] HPV9 2021-10-22 00:00:00 Completed [facility] HPV9 2021-10-22 00:00:00 Completed [facility] HPV9 2021-10-22 00:00:00 Completed [facility] HPV9 2021-10-22 00:00:00 Completed [facility] HPV9 2021-10-22 00:00:00 Completed [facility] HPV9 2021-10-22 00:00:00 Completed [facility] HPV9 2021-10-22 00:00:00 Completed [facility] HPV9 2021-10-22 00:00:00 Completed [facility] HPV9 2021-10-22 00:00:00 Completed [facility] HPV9 2021-10-22 00:00:00 Completed [facility] HPV9 2021-10-22 00:00:00 Completed [facility] HPV9 2021-10-22 00:00:00 Completed [facility] HPV9 2021-10-22 00:00:00 Completed [facility] HPV9 2021-10-22 00:00:00 Completed [facility] HPV9 2021-10-22 00:00:00 Completed [facility] HPV9 2021-10-22 00:00:00 Completed [facility] HPV9 2021-10-22 00:00:00 Completed [facility] HPV9 2021-10-22 00:00:00 Completed [facility] SARS-COV-2 COVID-19 MODERNA 12+ YRS VACCINE 2020-10-23 00:00:00 Completed [facility] SARS-COV-2 COVID-19 MODERNA 12+ YRS VACCINE 2020-10-23 00:00:00 Completed [facility] SARS-COV-2 COVID-19 MODERNA VACCINE 2020-10-23 00:00:00 Completed [facility] SARS-COV-2 COVID-19 MODERNA VACCINE 2020-10-23 00:00:00 Completed [facility] SARS-COV-2 COVID-19 MODERNA VACCINE 2020-10-23 00:00:00 Completed [facility] SARS-COV-2 COVID-19 MODERNA VACCINE 2020-10-23 00:00:00 Completed [facility] SARS-COV-2 COVID-19 MODERNA VACCINE 2020-10-23 00:00:00 Completed [facility] SARS-COV-2 COVID-19 MODERNA VACCINE 2020-10-23 00:00:00 Completed [facility] SARS-COV-2 COVID-19 MODERNA VACCINE 2020-10-23 00:00:00 Completed [facility] SARS-COV-2 COVID-19 MODERNA 12+ YRS VACCINE 2020-10-23 00:00:00 Completed [facility] SARS-COV-2 COVID-19 MODERNA 12+ YRS VACCINE 2020-10-23 00:00:00 Completed [facility] SARS-COV-2 COVID-19 MODERNA 12+ YRS VACCINE 2020-10-23 00:00:00 Completed [facility] SARS-COV-2 COVID-19 MODERNA 12+ YRS VACCINE 2020-10-23 00:00:00 Completed [facility] SARS-COV-2 COVID-19 MODERNA 12+ YRS VACCINE 2020-10-23 00:00:00 Completed [facility] SARS-COV-2 COVID-19 MODERNA 12+ YRS VACCINE 2020-10-23 00:00:00 Completed [facility] SARS-COV-2 COVID-19 MODERNA 12+ YRS VACCINE 2020-10-23 00:00:00 Completed [facility] SARS-COV-2 COVID-19 MODERNA 12+ YRS VACCINE 2020-10-23 00:00:00 Completed [facility] SARS-COV-2 COVID-19 MODERNA 12+ YRS VACCINE 2020-10-23 00:00:00 Completed [facility] SARS-COV-2 COVID-19 MODERNA 12+ YRS VACCINE 2020-10-23 00:00:00 Completed [facility] SARS-COV-2 COVID-19 MODERNA 12+ YRS VACCINE 2020-10-23 00:00:00 Completed [facility] SARS-COV-2 COVID-19 MODERNA 12+ YRS VACCINE 2020-10-23 00:00:00 Completed [facility] SARS-COV-2 COVID-19 MODERNA 12+ YRS VACCINE 2020-10-23 00:00:00 Completed [facility] SARS-COV-2 COVID-19 MODERNA 12+ YRS VACCINE 2020-10-23 00:00:00 Completed [facility] SARS-COV-2 COVID-19 MODERNA 12+ YRS VACCINE 2020-10-23 00:00:00 Completed [facility] SARS-COV-2 COVID-19 MODERNA 12+ YRS VACCINE 2020-10-23 00:00:00 Completed [facility] SARS-COV-2 COVID-19 MODERNA 12+ YRS VACCINE 2020-10-23 00:00:00 Completed [facility] SARS-COV-2 COVID-19 MODERNA 12+ YRS VACCINE 2020-10-23 00:00:00 Completed [facility] SARS-COV-2 COVID-19 MODERNA 12+ YRS VACCINE 2020-10-23 00:00:00 Completed [facility] SARS-COV-2 COVID-19 MODERNA 12+ YRS VACCINE 2020-10-23 00:00:00 Completed [facility] SARS-COV-2 COVID-19 MODERNA 12+ YRS VACCINE 2020-10-23 00:00:00 Completed [facility] SARS-COV-2 COVID-19 MODERNA 12+ YRS VACCINE 2020-10-23 00:00:00 Completed [facility] SARS-COV-2 COVID-19 MODERNA 12+ YRS VACCINE 2020-10-23 00:00:00 Completed [facility] SARS-COV-2 COVID-19 MODERNA 12+ YRS VACCINE 2020-10-23 00:00:00 Completed [facility] SARS-COV-2 COVID-19 MODERNA 12+ YRS VACCINE 2020-10-23 00:00:00 Completed [facility] SARS-COV-2 COVID-19 MODERNA 12+ YRS VACCINE 2020-10-23 00:00:00 Completed [facility] SARS-COV-2 COVID-19 MODERNA 12+ YRS VACCINE 2020-10-23 00:00:00 Completed [facility] SARS-COV-2 COVID-19 MODERNA 12+ YRS VACCINE 2020-10-23 00:00:00 Completed [facility] SARS-COV-2 COVID-19 MODERNA 12+ YRS VACCINE 2020-10-23 00:00:00 Completed [facility] SARS-COV-2 COVID-19 MODERNA 12+ YRS VACCINE 2020-10-23 00:00:00 Completed [facility] SARS-COV-2 COVID-19 MODERNA 12+ YRS VACCINE 2020-10-23 00:00:00 Completed [facility] SARS-COV-2 COVID-19 MODERNA 12+ YRS VACCINE 2020-10-23 00:00:00 Completed [facility] SARS-COV-2 COVID-19 MODERNA 12+ YRS VACCINE 2020-10-23 00:00:00 Completed [facility] SARS-COV-2 COVID-19 MODERNA 12+ YRS VACCINE 2020-10-23 00:00:00 Completed [facility] SARS-COV-2 COVID-19 MODERNA 12+ YRS VACCINE 2020-10-23 00:00:00 Completed [facility] SARS-COV-2 COVID-19 MODERNA 12+ YRS VACCINE 2020-10-23 00:00:00 Completed [facility] SARS-COV-2 COVID-19 MODERNA 12+ YRS VACCINE 2020-09-24 00:00:00 Completed [facility] SARS-COV-2 COVID-19 MODERNA 12+ YRS VACCINE 2020-09-24 00:00:00 Completed [facility] SARS-COV-2 COVID-19 MODERNA VACCINE 2020-09-24 00:00:00 Completed [facility] SARS-COV-2 COVID-19 MODERNA VACCINE 2020-09-24 00:00:00 Completed [facility] SARS-COV-2 COVID-19 MODERNA VACCINE 2020-09-24 00:00:00 Completed [facility] SARS-COV-2 COVID-19 MODERNA VACCINE 2020-09-24 00:00:00 Completed [facility] SARS-COV-2 COVID-19 MODERNA VACCINE 2020-09-24 00:00:00 Completed [facility] SARS-COV-2 COVID-19 MODERNA VACCINE 2020-09-24 00:00:00 Completed [facility] SARS-COV-2 COVID-19 MODERNA VACCINE 2020-09-24 00:00:00 Completed [facility] SARS-COV-2 COVID-19 MODERNA 12+ YRS VACCINE 2020-09-24 00:00:00 Completed [facility] SARS-COV-2 COVID-19 MODERNA 12+ YRS VACCINE 2020-09-24 00:00:00 Completed [facility] SARS-COV-2 COVID-19 MODERNA 12+ YRS VACCINE 2020-09-24 00:00:00 Completed [facility] SARS-COV-2 COVID-19 MODERNA 12+ YRS VACCINE 2020-09-24 00:00:00 Completed [facility] SARS-COV-2 COVID-19 MODERNA 12+ YRS VACCINE 2020-09-24 00:00:00 Completed [facility] SARS-COV-2 COVID-19 MODERNA 12+ YRS VACCINE 2020-09-24 00:00:00 Completed [facility] SARS-COV-2 COVID-19 MODERNA 12+ YRS VACCINE 2020-09-24 00:00:00 Completed [facility] SARS-COV-2 COVID-19 MODERNA 12+ YRS VACCINE 2020-09-24 00:00:00 Completed [facility] SARS-COV-2 COVID-19 MODERNA 12+ YRS VACCINE 2020-09-24 00:00:00 Completed [facility] SARS-COV-2 COVID-19 MODERNA 12+ YRS VACCINE 2020-09-24 00:00:00 Completed [facility] SARS-COV-2 COVID-19 MODERNA 12+ YRS VACCINE 2020-09-24 00:00:00 Completed [facility] SARS-COV-2 COVID-19 MODERNA 12+ YRS VACCINE 2020-09-24 00:00:00 Completed [facility] SARS-COV-2 COVID-19 MODERNA 12+ YRS VACCINE 2020-09-24 00:00:00 Completed [facility] SARS-COV-2 COVID-19 MODERNA 12+ YRS VACCINE 2020-09-24 00:00:00 Completed [facility] SARS-COV-2 COVID-19 MODERNA 12+ YRS VACCINE 2020-09-24 00:00:00 Completed [facility] SARS-COV-2 COVID-19 MODERNA 12+ YRS VACCINE 2020-09-24 00:00:00 Completed [facility] SARS-COV-2 COVID-19 MODERNA 12+ YRS VACCINE 2020-09-24 00:00:00 Completed [facility] SARS-COV-2 COVID-19 MODERNA 12+ YRS VACCINE 2020-09-24 00:00:00 Completed [facility] SARS-COV-2 COVID-19 MODERNA 12+ YRS VACCINE 2020-09-24 00:00:00 Completed [facility] SARS-COV-2 COVID-19 MODERNA 12+ YRS VACCINE 2020-09-24 00:00:00 Completed [facility] SARS-COV-2 COVID-19 MODERNA 12+ YRS VACCINE 2020-09-24 00:00:00 Completed [facility] SARS-COV-2 COVID-19 MODERNA 12+ YRS VACCINE 2020-09-24 00:00:00 Completed [facility] SARS-COV-2 COVID-19 MODERNA 12+ YRS VACCINE 2020-09-24 00:00:00 Completed [facility] SARS-COV-2 COVID-19 MODERNA 12+ YRS VACCINE 2020-09-24 00:00:00 Completed [facility] SARS-COV-2 COVID-19 MODERNA 12+ YRS VACCINE 2020-09-24 00:00:00 Completed [facility] SARS-COV-2 COVID-19 MODERNA 12+ YRS VACCINE 2020-09-24 00:00:00 Completed [facility] SARS-COV-2 COVID-19 MODERNA 12+ YRS VACCINE 2020-09-24 00:00:00 Completed [facility] SARS-COV-2 COVID-19 MODERNA 12+ YRS VACCINE 2020-09-24 00:00:00 Completed [facility] SARS-COV-2 COVID-19 MODERNA 12+ YRS VACCINE 2020-09-24 00:00:00 Completed [facility] SARS-COV-2 COVID-19 MODERNA 12+ YRS VACCINE 2020-09-24 00:00:00 Completed [facility] SARS-COV-2 COVID-19 MODERNA 12+ YRS VACCINE 2020-09-24 00:00:00 Completed [facility] SARS-COV-2 COVID-19 MODERNA 12+ YRS VACCINE 2020-09-24 00:00:00 Completed [facility] SARS-COV-2 COVID-19 MODERNA 12+ YRS VACCINE 2020-09-24 00:00:00 Completed [facility] SARS-COV-2 COVID-19 MODERNA 12+ YRS VACCINE 2020-09-24 00:00:00 Completed [facility] SARS-COV-2 COVID-19 MODERNA 12+ YRS VACCINE 2020-09-24 00:00:00 Completed [facility] SARS-COV-2 COVID-19 MODERNA 12+ YRS VACCINE 2020-09-24 00:00:00 Completed [facility] HPV 2016-06-23 00:00:00 Completed [facility] HPV 2016-06-23 00:00:00 Completed [facility] HPV 2016-06-23 00:00:00 Completed [facility] HPV 2016-06-23 00:00:00 Completed [facility] HPV 2016-06-23 00:00:00 Completed [facility] HPV 2016-06-23 00:00:00 Completed [facility] HPV 2016-06-23 00:00:00 Completed [facility] HPV 2016-06-23 00:00:00 Completed [facility] HPV 2016-06-23 00:00:00 Completed [facility] HPV 2016-06-23 00:00:00 Completed [facility] HPV 2016-06-23 00:00:00 Completed [facility] HPV 2016-06-23 00:00:00 Completed [facility] HPV 2016-06-23 00:00:00 Completed [facility] HPV 2016-06-23 00:00:00 Completed [facility] HPV 2016-06-23 00:00:00 Completed [facility] HPV 2016-06-23 00:00:00 Completed [facility] HPV 2016-06-23 00:00:00 Completed [facility] HPV 2016-06-23 00:00:00 Completed [facility] HPV 2016-06-23 00:00:00 Completed [facility] HPV 2016-06-23 00:00:00 Completed [facility] HPV 2016-06-23 00:00:00 Completed [facility] HPV 2016-06-23 00:00:00 Completed [facility] HPV 2016-06-23 00:00:00 Completed [facility] HPV 2016-06-23 00:00:00 Completed [facility] HPV 2016-06-23 00:00:00 Completed [facility] HPV 2016-06-23 00:00:00 Completed [facility] HPV 2016-06-23 00:00:00 Completed [facility] HPV 2016-06-23 00:00:00 Completed [facility] HPV 2016-06-23 00:00:00 Completed [facility] HPV 2016-06-23 00:00:00 Completed [facility] HPV 2016-06-23 00:00:00 Completed [facility] HPV 2016-06-23 00:00:00 Completed [facility] HPV 2016-06-23 00:00:00 Completed [facility] HPV 2016-06-23 00:00:00 Completed [facility] HPV 2016-06-23 00:00:00 Completed [facility] HPV 2016-06-23 00:00:00 Completed [facility] HPV 2016-06-23 00:00:00 Completed [facility] HPV 2016-06-23 00:00:00 Completed [facility] HPV 2016-06-23 00:00:00 Completed [facility] HPV 2016-06-23 00:00:00 Completed [facility] HPV 2016-06-23 00:00:00 Completed [facility] HPV 2016-06-23 00:00:00 Completed [facility] HPV 2016-06-23 00:00:00 Completed [facility] HPV 2016-06-23 00:00:00 Completed [facility] HPV 2016-06-23 00:00:00 Completed [facility] TDAP 2009-06-03 00:00:00 Completed [facility] TDAP 2009-06-03 00:00:00 Completed [facility] TDAP 2009-06-03 00:00:00 Completed [facility] TDAP 2009-06-03 00:00:00 Completed [facility] TDAP 2009-06-03 00:00:00 Completed [facility] TDAP 2009-06-03 00:00:00 Completed [facility] TDAP 2009-06-03 00:00:00 Completed [facility] TDAP 2009-06-03 00:00:00 Completed [facility] TDAP 2009-06-03 00:00:00 Completed [facility] TDAP 2009-06-03 00:00:00 Completed [facility] TDAP 2009-06-03 00:00:00 Completed [facility] TDAP 2009-06-03 00:00:00 Completed [facility] TDAP 2009-06-03 00:00:00 Completed [facility] TDAP 2009-06-03 00:00:00 Completed [facility] TDAP 2009-06-03 00:00:00 Completed [facility] TDAP 2009-06-03 00:00:00 Completed [facility] TDAP 2009-06-03 00:00:00 Completed [facility] TDAP 2009-06-03 00:00:00 Completed [facility] TDAP 2009-06-03 00:00:00 Completed [facility] TDAP 2009-06-03 00:00:00 Completed [facility] TDAP 2009-06-03 00:00:00 Completed [facility] TDAP 2009-06-03 00:00:00 Completed [facility] TDAP 2009-06-03 00:00:00 Completed [facility] TDAP 2009-06-03 00:00:00 Completed [facility] TDAP 2009-06-03 00:00:00 Completed [facility] TDAP 2009-06-03 00:00:00 Completed [facility] TDAP 2009-06-03 00:00:00 Completed [facility] TDAP 2009-06-03 00:00:00 Completed [facility] TDAP 2009-06-03 00:00:00 Completed [facility] TDAP 2009-06-03 00:00:00 Completed [facility] TDAP 2009-06-03 00:00:00 Completed [facility] TDAP 2009-06-03 00:00:00 Completed [facility] TDAP 2009-06-03 00:00:00 Completed [facility] TDAP 2009-06-03 00:00:00 Completed [facility] TDAP 2009-06-03 00:00:00 Completed [facility] TDAP 2009-06-03 00:00:00 Completed [facility] TDAP 2009-06-03 00:00:00 Completed [facility] TDAP 2009-06-03 00:00:00 Completed [facility] TDAP 2009-06-03 00:00:00 Completed [facility] TDAP 2009-06-03 00:00:00 Completed [facility] TDAP 2009-06-03 00:00:00 Completed [facility] TDAP 2009-06-03 00:00:00 Completed [facility] TDAP 2009-06-03 00:00:00 Completed [facility] TDAP 2009-06-03 00:00:00 Completed [facility] TDAP 2009-06-03 00:00:00 Completed [facility] TDAP Unknown Completed [facility] HPV Unknown Completed [facility] HPV9 Unknown Completed [facility] SARS-COV-2 COVID-19 MODERNA 12+ YRS VACCINE Unknown Completed [facility] TDAP Unknown Completed [facility] HPV Unknown Completed [facility] HPV9 Unknown Completed [facility] SARS-COV-2 COVID-19 MODERNA 12+ YRS VACCINE Unknown Completed [facility] TDAP Unknown Completed [facility] HPV Unknown Completed [facility] HPV9 Unknown Completed [facility] SARS-COV-2 COVID-19 MODERNA 12+ YRS VACCINE Unknown Completed [facility] TDAP Unknown Completed [facility] HPV Unknown Completed [facility] HPV9 Unknown Completed [facility] SARS-COV-2 COVID-19 MODERNA 12+ YRS VACCINE Unknown Completed [facility] TDAP Unknown Completed [facility] HPV Unknown Completed [facility] HPV9 Unknown Completed [facility] SARS-COV-2 COVID-19 MODERNA 12+ YRS VACCINE Unknown Completed [facility] Vital Signs Vital Name Observation Time Observation Value Comments [facility] Systolic blood pressure 2023-03-15 15:53:00 123 mm[facility]Hg[facility] Diastolic blood pressure 2023-03-15 15:53:00 72 mm[Hg] [facility] Heart rate 2023-03-15 15:53:00 61 /min [facility] Body temperature 2023-03-15 15:53:00 36.67 Kathy [facility] Respiratory rate 2023-03-15 15:53:00 18 /min [facility] Body weight 2023-03-15 15:53:00 94.257 kg [facility] BMI 2023-03-15 15:53:00 34.58 kg/m2 [facility] Systolic blood pressure 2023-02-22 19:20:00 118 mm[Hg] [facility] Diastolic blood pressure 2023-02-22 19:20:00 72 mm[Hg] [facility] Heart rate 2023-02-22 19:20:00 62 /min [facility] Body temperature 2023-02-22 19:20:00 36.06 Kathy [facility] Respiratory rate 2023-02-22 19:20:00 17 /min [facility] Body height 2023-02-22 19:20:00 165.1 cm [facility] Body weight 2023-02-22 19:20:00 93.713 kg [facility] BMI 2023-02-22 19:20:00 34.38 kg/m2 [facility] Systolic blood pressure 2022-09-30 15:49:00 103 mm[Hg] [facility] Diastolic blood pressure 2022-09-30 15:49:00 59 mm[Hg] [facility] Heart rate 2022-09-30 15:49:00 66 /min [facility] Body temperature 2022-09-30 15:49:00 36.78 Kathy [facility] Respiratory rate 2022-09-30 15:49:00 18 /min [facility] Body weight 2022-09-30 15:49:00 91.173 kg [facility] BMI 2022-09-30 15:49:00 33.45 kg/m2 [facility] Systolic blood pressure 2022-09-11 15:10:00 117 mm[Hg] [facility] Diastolic blood pressure 2022-09-11 15:10:00 74 mm[Hg] [facility] Heart rate 2022-09-11 15:10:00 76 /min [facility] Body temperature 2022-09-11 15:10:00 36.72 Kathy [facility] Body height 2022-09-11 15:10:00 165.1 cm [facility] Body weight 2022-09-11 15:10:00 91.899 kg [facility] BMI 2022-09-11 15:10:00 33.71 kg/m2 [facility] Heart rate 2022-08-05 15:07:00 64 /min [facility] Body temperature 2022-08-05 15:07:00 36.83 Kathy [facility] Respiratory rate 2022-08-05 15:07:00 18 /min [facility] Body height 2022-08-05 15:07:00 165.1 cm [facility] Body weight 2022-08-05 15:07:00 91.173 kg [facility] BMI 2022-08-05 15:07:00 33.45 kg/m2 [facility] Systolic blood pressure 2022-08-05 15:07:00 119 mm[Hg] [facility] Diastolic blood pressure 2022-08-05 15:07:00 75 mm[Hg] [facility] Systolic blood pressure 2022-07-01 13:15:00 131 mm[Hg] [facility] Diastolic blood pressure 2022-07-01 13:15:00 88 mm[Hg] [facility] Heart rate 2022-07-01 13:15:00 60 /min [facility] Body temperature 2022-07-01 13:15:00 36.83 Kathy [facility] Respiratory rate 2022-07-01 13:15:00 16 /min [facility] Oxygen saturation in Arterial blood by Pulse oximetry 2022-07-01 10:30:00 100 /min [facility] Body height 2022-06-30 06:25:00 165.1 cm [facility] Body weight 2022-06-30 06:25:00 102.422 kg [facility] BMI 2022-06-30 06:25:00 37.58 kg/m2 [facility] Systolic blood pressure 2022-06-29 16:44:00 134 mm[Hg] [facility] Diastolic blood pressure 2022-06-29 16:44:00 89 mm[Hg] [facility] Heart rate 2022-06-29 16:44:00 85 /min [facility] Body temperature 2022-06-29 16:44:00 36.94 Kathy [facility] Respiratory rate 2022-06-29 16:44:00 18 /min [facility] Body height 2022-06-29 16:44:00 165.1 cm [facility] Body weight 2022-06-29 16:44:00 101.515 kg [facility] BMI 2022-06-29 16:44:00 37.24 kg/m2 [facility] Oxygen saturation in Arterial blood by Pulse oximetry 2022-06-29 16:44:00 99 /min [facility] Heart rate 2022-06-27 12:15:00 65 /min [facility] Oxygen saturation in Arterial blood by Pulse oximetry 2022-06-27 12:15:00 99 /min [facility] Systolic blood pressure 2022-06-27 10:45:00 130 mm[Hg] [facility] Diastolic blood pressure 2022-06-27 10:45:00 80 mm[Hg] [facility] Body temperature 2022-06-27 10:45:00 36.83 Kathy [facility] Body height 2022-06-27 10:45:00 165.1 cm [facility] Body weight 2022-06-27 10:45:00 98.884 kg [facility] BMI 2022-06-27 10:45:00 36.28 kg/m2 [facility] Systolic blood pressure 2022-06-22 18:20:00 124 mm[Hg] [facility] Diastolic blood pressure 2022-06-22 18:20:00 77 mm[Hg] [facility] Heart rate 2022-06-22 18:20:00 71 /min [facility] Body temperature 2022-06-22 18:20:00 36.83 Kathy [facility] Respiratory rate 2022-06-22 18:20:00 18 /min [facility] Body height 2022-06-22 18:20:00 165.1 cm [facility] Body weight 2022-06-22 18:20:00 100.336 kg [facility] BMI 2022-06-22 18:20:00 36.81 kg/m2 [facility] Systolic blood pressure 2022-06-17 20:18:00 127 mm[Hg] [facility] Diastolic blood pressure 2022-06-17 20:18:00 83 mm[Hg] [facility] Heart rate 2022-06-17 20:18:00 84 /min [facility] Body temperature 2022-06-17 20:18:00 36.94 Kathy [facility] Respiratory rate 2022-06-17 20:18:00 18 /min [facility] Body height 2022-06-17 20:18:00 165.1 cm [facility] Body weight 2022-06-17 20:18:00 98.431 kg [facility] BMI 2022-06-17 20:18:00 36.11 kg/m2 [facility] Systolic blood pressure 2022-06-15 16:47:00 119 mm[Hg] [facility] Diastolic blood pressure 2022-06-15 16:47:00 75 mm[Hg] [facility] Heart rate 2022-06-15 16:47:00 67 /min [facility] Body temperature 2022-06-15 16:47:00 36.89 Kathy [facility] Body height 2022-06-15 16:47:00 165.1 cm [facility] Body weight 2022-06-15 16:47:00 98.884 kg [facility] BMI 2022-06-15 16:47:00 36.28 kg/m2 [facility] Systolic blood pressure 2022-06-04 16:55:00 130 mm[Hg] [facility] Diastolic blood pressure 2022-06-04 16:55:00 86 mm[Hg] [facility] Heart rate 2022-06-04 16:55:00 79 /min [facility] Body temperature 2022-06-04 16:55:00 36.83 Kathy [facility] Respiratory rate 2022-06-04 16:55:00 18 /min [facility] Body height 2022-06-04 16:55:00 165.1 cm [facility] Body weight 2022-06-04 16:55:00 98.884 kg [facility] BMI 2022-06-04 16:55:00 36.28 kg/m2 [facility] Systolic blood pressure 2022-05-21 16:07:00 114 mm[Hg] [facility] Diastolic blood pressure 2022-05-21 16:07:00 74 mm[Hg] [facility] Heart rate 2022-05-21 16:07:00 64 /min [facility] Body temperature 2022-05-21 16:07:00 36.83 Kathy [facility] Body height 2022-05-21 16:07:00 165.1 cm [facility] Body weight 2022-05-21 16:07:00 96.525 kg [facility] BMI 2022-05-21 16:07:00 35.41 kg/m2 [facility] Systolic blood pressure 2022-05-06 16:01:00 106 mm[Hg] [facility] Diastolic blood pressure 2022-05-06 16:01:00 67 mm[Hg] [facility] Heart rate 2022-05-06 16:01:00 82 /min [facility] 2022-05-06 16:01:00 36.28 Kathy [facility] Body height 2022-05-06 16:01:00 [facility] Body weight 2022-05-06 16:01:00 96.072 kg [facility] BMI 2022-05-06 16:01:00 35.25 kg/m2 [facility] Systolic blood pressure 2022-04-22 17:24:00 113 mm[Hg] [facility] Diastolic blood pressure 2022-04-22 17:24:00 73 mm[Hg] [facility] Heart rate 2022-04-22 17:24:00 74 /min [facility] Body temperature 2022-04-22 17:24:00 36.72 Kathy [facility] Body height 2022-04-22 17:24:00 165.1 cm [facility] Body weight 2022-04-22 17:24:00 94.257 kg [facility] BMI 2022-04-22 17:24:00 34.58 kg/m2 [facility] Systolic blood pressure 2022-03-25 17:24:00 117 mm[Hg] [facility] Diastolic blood pressure 2022-03-25 17:24:00 75 mm[Hg] [facility] Heart rate 2022-03-25 17:24:00 79 /min [facility] Body temperature 2022-03-25 17:24:00 36.56 Kathy [facility] Body height 2022-03-25 17:24:00 165.1 cm [facility] Body weight 2022-03-25 17:24:00 94.167 kg [facility] BMI 2022-03-25 17:24:00 34.55 kg/m2 [facility] Systolic blood pressure 2022-02-25 15:52:00 112 mm[Hg] [facility] Diastolic blood pressure 2022-02-25 15:52:00 77 mm[Hg] [facility] Heart rate 2022-02-25 15:52:00 90 /min [facility] Body temperature 2022-02-25 15:52:00 36.61 Kathy [facility] Respiratory rate 2022-02-25 15:52:00 17 /min [facility] Body height 2022-02-25 15:52:00 165.1 cm [facility] Body weight 2022-02-25 15:52:00 90.357 kg [facility] BMI 2022-02-25 15:52:00 33.15 kg/m2 [facility] Systolic blood pressure 2022-01-27 16:15:00 110 mm[Hg] [facility] Diastolic blood pressure 2022-01-27 16:15:00 72 mm[Hg] [facility] Heart rate 2022-01-27 16:15:00 76 /min [facility] Body temperature 2022-01-27 16:15:00 36.72 Kathy [facility] Respiratory rate 2022-01-27 16:15:00 18 /min [facility] Body height 2022-01-27 16:15:00 165.1 cm [facility] Body weight 2022-01-27 16:15:00 92.08 kg [facility] BMI 2022-01-27 16:15:00 33.78 kg/m2 [facility] Systolic blood pressure 2021-12-31 21:19:00 129 mm[Hg] [facility] Diastolic blood pressure 2021-12-31 21:19:00 70 mm[Hg] [facility] Heart rate 2021-12-31 21:19:00 94 /min [facility] Body temperature 2021-12-31 21:19:00 36.94 Kathy [facility] Respiratory rate 2021-12-31 21:19:00 18 /min [facility] Body height 2021-12-31 21:19:00 165.1 cm [facility] Body weight 2021-12-31 21:19:00 90.719 kg [facility] BMI 2021-12-31 21:19:00 33.28 kg/m2 [facility] Systolic blood pressure 2021-12-03 14:51:00 112 mm[Hg] [place] [facility] Diastolic blood pressure 2021-12-03 14:51:00 72 mm[Hg] [place] [facility] Heart rate 2021-12-03 14:51:00 69 /min [facility] Body temperature 2021-12-03 14:51:00 37.17 Kathy [facility] Respiratory rate 2021-12-03 14:51:00 18 /min [facility] Body height 2021-12-03 14:51:00 165.1 cm [facility] Body weight 2021-12-03 14:51:00 93.895 kg [facility] BMI 2021-12-03 14:51:00 34.45 kg/m2 [facility] Procedures Procedure Date / Time Performed Performing Clinician Source POCT TEST 2023-03-15 15:56:00 Blayne Galindo [facility] CONSENT FOR CONTRACEPTION 2023-03-15 06:01:00 Do ctor Unassigned, [place] [facility] POCT TEST 2023-02-22 00:00:00 Sudheer Anglin [facility] CBC WITH DIFF 2022-07-01 10:24:00 Blayne Galindo [facility] HB ABO GROUPING 2022-06-30 11:34:00 Blayne Galindo [facility] RHO (D) IMMUNE GLOBULIN 2022-06-30 11:34:00 Blayne Galindo [facility] HOSPITAL ADMISSION 2022-06-30 06:01:00 Doctor Un assigned, [place] [facility] ASSIGNMENT OF BENEFITS 2022-06-29 17:18:57 Docto r Unassigned, [place] [facility] POCT URINALYSIS W/O SPECIFIC GRAVITY 2022-06-29 00:00:00 Blayne Galindo [facility] DME/SUPPLY JUSTIFICATION 2022-06-28 06:01:00 Doc sailaja Unassigned, [place] [facility] POCT URINALYSIS W/O SPECIFIC GRAVITY 2022-06-22 00:00:00 Blayne Galindo [facility] >14 WEEKS US LIMITED 2022-06-15 17:14:00 Blayne Galindo [facility] DSU PRE-OP 2022-06-15 06:01:00 Doctor Unass igned, [place] [facility] POCT URINALYSIS W/O SPECIFIC GRAVITY 2022-06-15 00:00:00 Blayne Galindo [facility] POCT URINALYSIS W/O SPECIFIC GRAVITY 2022-06-04 00:00:00 Linnette Beatriz [facility] DME/SUPPLY JUSTIFICATION 2022-06-03 06:01:00 Mateus menard Unassigned, [place] [facility] POCT URINALYSIS W/O SPECIFIC GRAVITY 2022-05-21 00:00:00 Blayne Galindo [facility] POCT URINALYSIS W/O SPECIFIC GRAVITY 2022-05-06 00:00:00 Linnette Beatriz [facility] POCT URINALYSIS W/O SPECIFIC GRAVITY 2022-04-22 00:00:00 Blayne Galindo [facility] POCT URINALYSIS W/O SPECIFIC GRAVITY 2022-03-25 00:00:00 Linnette Beatriz [facility] POCT URINALYSIS W/O SPECIFIC GRAVITY 2022-02-25 00:00:00 Blayne Galindo [facility] POCT URINALYSIS W/O SPECIFIC GRAVITY 2022-01-27 00:00:00 Linnette Beatriz [facility] INSURANCE CORRESPONDENCE 2022-01-21 05:01:00 Doc sailaja Unassigned, [place] [facility] [facility] EXTERNAL PROVIDER RECORDS 2022-01-13 05:01:00 Do ctor Unassigned, [place] [facility] POCT URINALYSIS W/O SPECIFIC GRAVITY 2021-12-31 00:00:00 Linnette Beatriz [facility] SCANNED LAB RESULTS 2021-12-24 05:01:00 Doctor U nassigned, [place] [facility] <14 WEEKS US LIMITED 2021-12-03 15:26:11 Blayne Galindo [facility] POCT URINALYSIS W/O SPECIFIC GRAVITY 2021-12-03 15:00:00 Blayne Galindo [facility] AUTHORIZATION TO RELEASE PHI TO [facility] 2021-12-03 05:01:00 Doctor Unassigned, [place] [facility] Encounters Start Date/Time End Date/Time Encounter Type Admission Type Attending [facility] Care Facility Care Department Encounter ID Source 2022-06-27 06:58:59 Outpatient P [facility] [id number] [facility] 2024-05-16 14:15:00 2024-05-16 14:15:00 Outpatient R BLAYNE GALINDO VIEN [facility] [id number] [facility] 2024-04-03 10:30:00 2024-04-03 10:30:00 Outpatient BLAYNE JONES VIEN [facility] [id number] [facility] 2024-03-20 09:30:00 2024-03-20 09:30:00 Outpatient R BLAYNE GALINDO VIEN [facility] [id number] [facility] 2023-03-15 09:00:00 2023-03-15 10:10:09 Outpatient BLAYNE JONES [facility] [id number] [facility] 2023-03-15 09:00:00 2023-03-15 10:10:09 Office Visit Blayne Galindo [facility] 1..840.114 350.1.13.10 4.2.7.2.686 [id number] 134 [id number] [facility] 2023-03-15 00:00:00 2023-03-15 00:00:00 Orders Only Doctor Unassigned, [place] [facility] 1..840.114 350.1.13.10 4.2.7.2.686 [id number] [id number] [facility] 2023-02-22 14:00:00 2023-02-22 14:30:00 Office Visit Beatriz Anglin [facility] 1.2.840.114 350.1.13.10 4.2.7.2.686 [id number] 134 [id number] [facility] 2023-02-22 14:00:00 2023-02-22 14:00:00 Outpatient R LINNETTE BEATRIZ [facility] [id number] [facility] 2023-02-15 13:00:00 2023-02-15 13:00:00 Outpatient R BLAYNE GALINDO [facility] [id number] [facility] 2023-01-01 10:00:00 2023-01-01 10:00:00 Outpatient R [facility] [id number] [facility] 2022-10-22 09:15:00 2022-10-22 09:15:00 Outpatient R AKINSIPE, LISHA [facility] [id number] [facility] 2022-10-22 09:15:00 2022-10-22 09:15:00 Outpatient R AKINSIPE, LISHA [facility] [id number] [facility] 2022-10-22 09:15:00 2022-10-22 09:15:00 Outpatient R AKINSIPE, LISHA [facility] [id number] [facility] 2022-10-22 09:15:00 2022-10-22 09:15:00 Outpatient R AKINSIPE, LISHA [facility] [id number] [facility] 2022-09-30 10:30:00 2022-09-30 10:51:03 Outpatient R LINNETTE BEATRIZ [facility] [id number] [facility] 2022-09-30 10:30:00 2022-09-30 10:51:03 Nurse Visit Nurse, [facility] Beatriz Anglin [facility] 1.2.840.114 350.1.13.10 4.2.7.2.686 [id number] 134 [id number] [facility] 2022-09-11 10:00:00 2022-09-11 10:30:00 Office Visit Beatriz Anglin [facility] 1.2.840.114 350.1.13.10 4.2.7.2.686 [id number] 134 [id number] [facility] 2022-09-11 10:00:00 2022-09-11 10:00:00 Outpatient R LINNETTE [facility] [id number] [facility] 2022-08-05 10:00:00 2022-08-05 10:40:12 Outpatient R BEATRIZ ANGLIN [facility] [id number] [facility] 2022-08-05 10:00:00 2022-08-05 10:40:12 Routine Visit Beatriz Anglin [facility] 1.2.840.114 350.1.13.10 4.2.7.2.686 [id number] 134 [id number] [facility] 2022-08-03 13:00:00 2022-08-03 13:00:00 Outpatient R BLAYNE GALINDO [facility] [id number] [facility] 2022-07-23 00:00:00 2022-07-23 00:00:00 Patient Secure Msg Blayne Galindo [facility] 1.2.840.114 350.1.13.10 4.2.7.2.686 [id number] 134 [id number] [facility] 2022-07-09 00:00:00 2022-07-09 00:00:00 Telephone Blayne Galindo [facility] 1.2.840.114 350.1.13.10 4.2.7.2.686 [id number] [facility] 2022-06-30 00:03:00 2022-07-01 13:20:00 Inpatient P BLAYNE GALINDO [facility] [id number] [facility] 2022-06-30 00:03:00 2022-07-01 13:20:00 Hospital Encounter Blayne Galindo [facility] 1.2840.114 350.1.13.10 4.2.7.2.686 [id number] [facility] 2022-06-30 00:00:00 2022-06-30 00:00:00 Orders Only Doctor Unassigned, [place] [facility] 1.20.114 350.1.13.10 4.2.7.2.686 [id number] [id number] [facility] 2022-06-29 12:00:00 2022-06-29 12:15:00 School Inspector Visit Pob, Adc Lab Main Blayne Galindo [facility]ILD[facility] 1.20.114 350.1.13.10 4.2.7.2.686 [id number] [facility] 2022-06-29 10:15:00 2022-06-29 11:07:09 Outpatient R BLAYNE GALINDO [facility] [id number] [facility] 2022-06-29 10:15:00 2022-06-29 11:07:09 Routine Visit Blayne Galindo [facility]ILD[facility] 1.20.114 350.1.13.10 4.2.7.2.686 [id number] 134 [id number] [facility] 2022-06-29 00:00:00 2022-06-29 00:00:00 Orders Only Doctor Unassigned, [place] [facility] 1.20.114 350.1.13.10 4.2.7.2.686 [id number] [id number] [facility] 2022-06-28 00:00:00 2022-06-28 00:00:00 Orders Only Doctor Unassigned, [place] [facility] 1.2840.114 350.1.13.10 4.2.7.2.686 [id number] [id number] [facility] 2022-06-27 04:25:00 2022-06-27 06:45:00 Outpatient P SCHULER-COLTEN S, JANY SCHULER-COLTEN S, JANY [facility] [id number] [facility] 2022-06-27 04:25:00 2022-06-27 06:45:00 Hospital Encounter Schuler-Colten s, Jany Blayne Galindo [facility] 1.20.114 350.1.13.10 4.2.7.2.686 [id number] [facility] 2022-06-24 00:00:00 2022-06-24 00:00:00 Patient Secure Mscharisma Robertson Sonia Sariah [facility] 1..114 350.1.13.10 4.2.7.2.686 [id number] 134 [id number] [facility] 2022-06-22 11:00:00 2022-06-22 12:30:17 Outpatient R BLAYNE GALINDO [facility] [id number] [facility] 2022-06-22 11:00:00 2022-06-22 12:30:17 Routine Visit Blayne Galindo [facility] 1.84.114 350.1.13.10 4.2.7.2.686 [id number] 134 [id number] [facility] 2022-06-17 14:00:00 2022-06-17 14:15:00 Nurse Visit Nurse, [facility] Blayne Galindo [facility]ILD[facility] 1.0.114 350.1.13.10 4.2.7.2.686 [id number] 134 [id number] [facility] 2022-06-17 14:00:00 2022-06-17 14:00:00 Outpatient R BLAYNE GALINDO [facility] [id number] [facility] 2022-06-17 00:00:00 2022-06-17 00:00:00 Patient Secure Msg Linnette Beatriz [facility] 1.20.114 350.1.13.10 4.2.7.2.686 [id number] 134 [id number] [facility] 2022-06-16 00:00:00 2022-06-16 00:00:00 Case Management Beatriz Anglin [facility] 1.20.114 350.1.13.10 4.2.7.2.686 [id number] 134 [id number] [facility] 2022-06-15 13:00:00 2022-06-15 13:15:00 School Inspector Visit 2, Adc Lab Blayne Galindo [facility] 1.2.114 350.1.13.10 4.2.7.2.686 [id number] [facility] 2022-06-15 13:00:00 2022-06-15 13:00:00 Outpatient R BLAYNE GALINDO [facility] [id number] [facility] 2022-06-15 10:15:00 2022-06-15 10:30:00 Routine Visit Blayne Galindo [facility] 1.2.114 350.1.13.10 4.2.7.2.686 [id number] [facility] 2022-06-15 00:00:00 2022-06-15 00:00:00 Orders Only Doctor Unassigned, [place] [facility] 1.20.114 350.1.13.10 4.2.7.2.686 [id number] [id number] [facility] 2022-06-04 10:30:00 2022-06-04 11:07:41 Outpatient R BEATRIZ ANGLIN [facility] [id number] [facility] 2022-06-04 10:30:00 2022-06-04 11:07:41 Routine Visit Beatriz Anglin [facility] 1.2840.114 350.1.13.10 4.2.7.2.686 [id number] 134 [id number] [facility] 2022-06-03 00:00:00 2022-06-03 00:00:00 Telephone Blayne Galindo [facility] BUILDING 1.20.114 350.1.13.10 4.2.7.2.686 [id number] 134 [id number] [facility] 2022-06-03 00:00:00 2022-06-03 00:00:00 Orders Only Doctor Unassigned, [place] [facility] 1.2840.114 350.1.13.10 4.2.7.2.686 [id number] [facility] 2022-05-21 09:45:00 2022-05-21 10:36:25 Outpatient R BLAYNE GALINDO [facility] [id number] [facility] 2022-05-21 09:45:00 2022-05-21 10:36:25 Routine Visit Blayne Galindo [facility] 1.2840.114 350.1.13.10 4.2.7.2.686 [id number] 134 [id number] [facility] 2022-05-19 09:30:00 2022-05-19 10:00:00 School Inspector Visit Ultrasound, [facility]ydney Mull[facility] 1.2840.114 350.1.13.10 4.2.7.2.686 [id number] 134 [id number] [facility] 2022-05-19 09:30:00 2022-05-19 09:30:00 Outpatient P SYDNEY PAINTER [facility] [id number] [facility] 2022-05-08 00:00:00 2022-05-08 00:00:00 Patient Secure Msg Blayne Galindo [facility] 1.2.840.114 350.1.13.10 4.2.7.2.686 [id number] 134 [id number] [facility] 2022-05-06 10:00:00 2022-05-06 10:15:20 Outpatient R BEATRIZ ANGLIN [facility] [id number] [facility] 2022-05-06 10:00:00 2022-05-06 10:15:20 Routine Visit Linnette Beatriz [facility] 1.2.840.114 350.1.13.10 4.2.7.2.686 [id number] [facility] 2022-04-22 11:15:00 2022-04-22 11:40:33 Outpatient R BLAYNE GALINDO [facility] [id number] [facility] 2022-04-22 11:15:00 2022-04-22 11:40:33 Routine Visit Blayne Galindo [facility] 1.2.840.114 350.1.13.10 4.2.7.2.686 [id number] 134 [id number] [facility] 2022-04-08 10:15:00 2022-04-08 10:30:00 School Inspector Visit 2, Adc Lab Blayne Galindo [facility] 1.2.840.114 350.1.13.10 4.2.7.2.686 [id number] [facility] 2022-04-08 10:15:00 2022-04-08 10:15:00 Outpatient R BLAYNE GALINDO [facility] [id number] [facility] 2022-03-25 11:30:00 2022-03-25 11:45:00 Routine Visit Beatriz Anglin [facility] 1.2.840.114 350.1.13.10 4.2.7.2.686 [id number] 134 [id number] [facility] 2022-03-25 11:30:00 2022-03-25 11:30:00 Outpatient R LINNETTE [facility] [id number] [facility] 2022-02-25 11:00:00 2022-02-25 12:07:16 Outpatient R BLAYNE GALINDO [facility] [id number] [facility] 2022-02-25 11:00:00 2022-02-25 12:07:16 Routine Visit Blayne Galindo [facility] 1..840.114 350.1.13.10 4.2.7.2.686 [id number] 134 [id number] [facility] 2022-02-19 09:45:00 2022-02-19 10:45:00 School Inspector Visit Ultrasound, Merritt Quesada [facility] DATA ANALYSIS ASSISTANT [facility] 1..840.114 350.1.13.10 4.2.7.2.686 [id number] [facility] 2022-02-19 09:45:00 2022-02-19 09:45:00 Outpatient P MERRITT BHAKTA [facility] [id number] [facility] 2022-01-27 11:45:00 2022-01-27 12:00:00 School Inspector Visit 2, Adc Lab Linnette [facility] BUILDING 1.2.840.114 350.1.13.10 4.2.7.2.686 [id number] [facility] 2022-01-27 11:00:00 2022-01-27 11:30:55 Outpatient R BEATRIZ ANGLIN [facility] [id number] [facility] 2022-01-27 11:00:00 2022-01-27 11:30:55 Routine Visit Beatriz [facility] 1..840.114 350.1.13.10 4.2.7.2.686 [id number] 134 [id number] [facility] 2022-01-22 09:00:00 2022-01-22 09:00:00 Outpatient R [facility] [id number] [facility] 2022-01-22 09:00:00 2022-01-22 09:00:00 Outpatient R [facility] [id number] [facility] 2022-01-22 09:00:00 2022-01-22 09:00:00 Outpatient R AKINSILISHA LARA [facility] [id number] [facility] 2022-01-22 09:00:00 2022-01-22 09:00:00 Outpatient R [facility] [id number] [facility] 2022-01-21 00:00:00 2022-01-21 00:00:00 Orders Only Doctor Unassigned, [place] [address]..840.114 350.1.13.10 4.2.7.2.686 [id number] [facility] 2022-01-13 00:00:00 2022-01-13 00:00:00 Orders Only Doctor Unassigned, [place] [facility] 1..840.114 350.1.13.10 4.2.7.2.686 [id number] [facility] 2022-01-08 00:00:00 2022-01-08 00:00:00 Telephone Blayne Galindo [facility] 1.2840.114 350.1.13.10 4.2.7.2.686 [id number] 134 [id number] [facility] 2022-01-02 13:00:00 2022-01-02 13:30:00 School Inspector Visit 2, [facility] 1..114 350.1.13.10 4.2.7.2.686 [id number] [facility] 2022-01-02 13:00:00 2022-01-02 13:00:00 Outpatient P DI ELY [facility] [id number] [facility] 2022-01-02 00:00:00 2022-01-02 00:00:00 Abstract Lisha Marquez [facility] DATA ANALYSIS ASSISTANT [facility] MATERNAL & CHILD [facility] 1..114 350.1.13.10 4.2.7.2.686 [id number] [facility] 2021-12-31 16:15:00 2021-12-31 16:32:53 Outpatient R LINNETTE [facility] [id number] [facility] 2021-12-31 16:15:00 2021-12-31 16:32:53 Routine Visit Beatriz Anglin [facility] 1.84.114 350.1.13.10 4.2.7.2.686 [id number] 134 [id number] [facility] 2021-12-24 10:30:00 2021-12-24 10:45:00 School Inspector Visit 2, [facility] Ana GalindoBlayne [facility] BUILDING 1.2.840.114 350.1.13.10 4.2.7.2.686 [id number] [facility] 2021-12-24 10:30:00 2021-12-24 10:30:00 Outpatient BLAYNE JONES [facility] [id number] [facility] 2021-12-24 00:00:00 2021-12-24 00:00:00 Patient Secure Lisbet Diaz [facility] 1..114 350.1.13.10 4.2.7.2.686 [id number] 134 [id number] [facility] 2021-12-24 00:00:00 2021-12-24 00:00:00 Orders Only Doctor Unassigned, [place] [facility] 1..114 350.1.13.10 4.2.7.2.686 [id number] [facility] 2021-12-16 11:00:00 2021-12-16 11:00:00 [facility] [id number] [facility] 2021-12-16 11:00:00 2021-12-16 11:00:00 Outpatient Dang [facility] [id number] [facility] 2021-12-16 11:00:00 2021-12-16 11:00:00 Outpatient [facility] [id number] [facility] 2021-12-08 00:00:00 2021-12-08 00:00:00 Case Management Beatriz Anglin [facility] 1.840.114 350.1.13.10 4.2.7.2.686 [id number] 134 [id number] [facility] 2021-12-03 09:30:00 2021-12-03 10:26:40 Outpatient BLAYNE JONES [facility] [id number] [facility] 2021-12-03 09:30:00 2021-12-03 10:26:40 Initial Visit lBayne Galindo [facility] 1.2840.114 350.1.13.10 4.2.7.2.686 [id number] 134 [id number] [facility] 2021-12-03 00:00:00 2021-12-03 00:00:00 Orders Only Doctor Unassigned, [place] [facility] 1.2840.114 350.1.13.10 4.2.7.2.686 [id number] [facility] 2021-12-01 00:00:00 2021-12-01 00:00:00 Telephone Britt Brown [facility] DATA ANALYSIS ASSISTANT [facility] MATERNAL & [facility]ILD [facility] 1.840.114 350.1.13.10 4.2.7.2.686 [id number] [facility] 2021-11-18 14:00:00 2021-11-18 15:31:57 Outpatient R BRITT BROWN [facility] [id number] [facility] 2021-11-18 14:00:00 2021-11-18 15:31:57 Initial Visit Britt Brown [facility] DATA ANALYSIS ASSISTANT [facility] & CHILD [facility] 1.840.114 350.1.13.10 4.2.7.2.686 [id number] [facility] 2021-11-18 14:00:00 2021-11-18 15:31:57 Outpatient R BRITT BROWN [facility] [id number] [facility] 2021-11-18 00:00:00 2021-11-18 00:00:00 Orders Only Doctor Unassigned, [place] [facility] 1.284.114 350.1.13.10 4.2.7.2.686 [id number] [facility] 2021-10-22 10:45:00 2021-10-22 11:15:52 Office Visit Lisha Marquez [facility] DATA ANALYSIS ASSISTANT [facility] & CHILD [facility] 1..114 350.1.13.10 4.2.7.2.686 [id number] [facility] 2021-10-22 10:45:00 2021-10-22 11:15:52 Outpatient R LISHA MARQUEZ [facility] [id number] [facility] 2021-10-22 10:45:00 2021-10-22 10:45:00 Outpatient R LISHA MARQUEZ [facility] [id number] [facility] 2021-10-22 00:00:00 2021-10-22 00:00:00 Orders Only Doctor Unassigned, [place] [facility] 1..114 350.1.13.10 4.2.7.2.686 [id number] [facility] 2021-10-14 09:30:00 2021-10-14 09:30:00 Outpatient R LISHA MARQUEZ [facility] [id number] [facility] 2021-08-06 09:00:00 2021-08-06 09:00:00 Outpatient R LISHA MARQUEZ [facility] [id number] [facility] 2021-01-14 09:15:00 2021-01-14 09:15:00 Outpatient R LISHA MARQUEZ [facility] [id number] [facility] 2020-12-16 00:00:00 2020-12-16 00:00:00 Refill Lisha Marquez [facility] DATA ANALYSIS ASSISTANT [facility] CHILD [facility] ..114 350.1.13.10 4.2.7.2.686 [id number] [facility] 2020-10-16 00:00:00 2020-10-16 00:00:00 Telephone Lisha Marquez [facility] DATA ANALYSIS ASSISTANT [facility] & CHILD [facility] 1..114 350.1.13.10 4.2.7.2.686 [id number] 107 [id number] [facility] 2020-10-14 10:18:34 2020-10-14 11:44:05 Office Visit RejiawaisLisha lara [facility] DATA ANALYSIS ASSISTANT [facility] 1.2.840.114 350.1.13.10 4.2.7.2.686 [id number] 107 [id number] [facility] 2020-10-14 09:30:00 2020-10-14 09:30:00 Outpatient R LISHA MARQUEZ [facility] [id number] [facility] 2020-10-14 00:00:00 2020-10-14 00:00:00 Orders Only Doctor Unassigned, [place] [facility] 1.2.840.114 350.1.13.10 4.2.7.2.686 [id number] [facility] Results Test Description Test Time Test Comments Results Result Co mments Source [facility] [id number] 15:56:00* Test Item Value Reference Range Interpretation Comme nts POCT PREG (test code = 1605) Negative On board controls acceptable with C Line (test code = 3574) Yes POCT PREG LOT # (test code = 3575) POCT PREG TEST DATE ( test code = 3576) Lab Interpretation (test cod e = [id number]) Normal [facility] [id number] 19:18:00* Test Item Value Reference Range Interpretation Comme nts POCT PREG (test code = 1605) Negative On board controls acceptable with C Line (test code = 3574) Yes POCT PREG LOT # (test code = 3575) POCT PREG TEST DATE ( test code = 3576) [facility] [id number] 19:18:00* Test Item Value Reference Range Interpretation Comme nts POCT PREG (test code = 1605) Negative On board controls acceptable with C Line (test code = 3574) Yes POCT PREG LOT # (test code = 3575) POCT PREG TEST DATE ( test code = 3576) [facility] I[facility] [id number] 21:07:14* Test Item Value Reference Range Interpretation Comme nts RHIG CANDIDATE? (test code = 5055) No- see comment Patient is not a candidate for RhIg- Patient is Rh Positive.Performed at [facility] Laboratory Services - [facility] Blood [address] [place] [address] Free: [phone] No. [id number] [facility] TaylorType and Screen - ONCE [id number] 12:39:15 * Test Item Value Reference Range Interpretation Comme [facility] ABO & RH (test code = 20) B Positive Performed at [facility] Laboratory [facility] - [facility] Blood [address] Free: [phone] No. [id number] IAT (test code = 1185) Negative Performed at [facility] Laboratory Services - [facility] Blood [address] [place] [address] Free: [phone] No. [id number] [facility] URINALYS[facility] W/O SPECIFIC [id number] 16:43:00* Test Item Value Reference Range Interpretation Comme nts POCT PH U (test code = 3254) n/a 5-8 POCT U LEUK EST (test code = 3263) n/a Negative - Negative POCT U NIT (test code = 3262) n/a Negative - Negati ve POCT U PROT (test code = 3259) negative Negative - Negat fran POCT U GLU (test code = 3256) negative Negative - Negati ve POCT U KETONE (test code = 3258) n/a Negative - Neg ative POCT U BLD (test code = 3257) n/a Negative - Negati ve [facility] W/O SPECIFIC [id number] 18:19:00* Test Item Value Reference Range Interpretation Comme nts POCT PH U (test code = 3254) 5 mg/dl 5-8 POCT U LEUK EST (test code = 3263) 1+ Negative - Negative POCT U NIT (test code = 3262) negative Negative - Negati ve POCT U PROT (test code = 3259) negative Negative - Negat fran POCT U GLU (test code = 3256) negative Negative - Negati ve POCT U KETONE (test code = 3258) negative Negative - Neg ative POCT U BLD (test code = 3257) negative Negative - Negati ve [facility] URINALYSIS W/O SPECIFIC [id number] 18:19:00* Test Item Value Reference Range Interpretation Comme nts POCT PH U (test code = 3254) 5 mg/dl 5-8 POCT U LEUK EST (test code = 3263) 1+ Negative - Negative POCT U NIT (test code = 3262) negative Negative - Negati ve POCT U PROT (test code = 3259) negative Negative - Negat fran POCT U GLU (test code = 3256) negative Negative - Negati ve POCT U KETONE (test code = 3258) negative Negative - Neg ative POCT U BLD (test code = 3257) negative Negative - Negati ve [facility] URINALYSIS W/O SPECIFIC [id number] 16:59:00* Test Item Value Reference Range Interpretation Comme nts POCT PH U (test code = 3254) n/a 5-8 POCT U LEUK EST (test code = 3263) n/a Negative - Negative POCT U NIT (test code = 3262) n/a Negative - Negati ve POCT U PROT (test code = 3259) Negative Negative - Negat fran POCT U GLU (test code = 3256) Normal Negative - Negati ve POCT U KETONE (test code = 3258) n/a Negative - Neg ative POCT U BLD (test code = 3257) n/a Negative - Negati ve [facility] URINALYSIS W/O SPECIFIC [id number] 16:59:00* Test Item Value Reference Range Interpretation Comme nts POCT PH U (test code = 3254) n/a 5-8 POCT U LEUK EST (test code = 3263) n/a Negative - N egative POCT U NIT (test code = 3262) n/a Negative - Negati ve POCT U PROT (test code = 3259) neg Negative - Negat fran POCT U GLU (test code = 3256) neg Negative - Negati ve POCT U KETONE (test code = 3258) n/a Negative - Neg ative POCT U BLD (test code = 3257) n/a Negative - Negati ve [facility] URINALYSIS W/O SPECIFIC [id number] 16:06:00* Test Item Value Reference Range Interpretation Comme nts POCT PH U (test code = 3254) n/a 5-8 POCT U LEUK EST (test code = 3263) n/a Negative - Negative POCT U NIT (test code = 3262) n/a Negative - Negati ve POCT U PROT (test code = 3259) negative Negative - Negat fran POCT U GLU (test code = 3256) negative Negative - Negati ve POCT U KETONE (test code = 3258) n/a Negative - Neg ative POCT U BLD (test code = 3257) n/a Negative - Negati ve [facility] URINALYSIS W/O SPECIFIC [id number] 16:01:00* Test Item Value Reference Range Interpretation Comme nts POCT PH U (test code = 3254) n/a 5-8 POCT U LEUK EST (test code = 3263) n/a Negative - Negative POCT U NIT (test code = 3262) n/a Negative - Negati ve POCT U PROT (test code = 3259) Trace Negative - Negat fran POCT U GLU (test code = 3256) negative Negative - Negati ve POCT U KETONE (test code = 3258) n/a Negative - Neg ative POCT U BLD (test code = 3257) n/a Negative - Negati ve [facility] URINALYSIS W/O SPECIFIC [id number] 17:22:00* Test Item Value Reference Range Interpretation Comme nts POCT PH U (test code = 3254) 6 mg/dl 5-8 POCT U LEUK EST (test code = 3263) Negative Negative - Negative POCT U NIT (test code = 3262) Negative Negative - Negati ve POCT U PROT (test code = 3259) Trace Negative - Negat fran POCT U GLU (test code = 3256) Negative Negative - Negati ve POCT U KETONE (test code = 3258) Negative Negative - Neg ative POCT U BLD (test code = 3257) Negative Negative - Negati ve [facility] URINALYSIS W/O SPECIFIC [id number] 17:22:00* Test Item Value Reference Range Interpretation Comme nts POCT PH U (test code = 3254) n/a 5-8 POCT U LEUK EST (test code = 3263) n/a Negative - Negative POCT U NIT (test code = 3262) n/a Negative - Negati ve POCT U PROT (test code = 3259) Negative Negative - Negat fran POCT U GLU (test code = 3256) Normal Negative - Negati ve POCT U KETONE (test code = 3258) n/a Negative - Neg ative POCT U BLD (test code = 3257) n/a Negative - Negati ve [facility] URINALYSIS W/O SPECIFIC [id number] 15:49:00* Test Item Value Reference Range Interpretation Comme nts POCT PH U (test code = 3254) n/a 5-8 POCT U LEUK EST (test code = 3263) n/a Negative - Negative POCT U NIT (test code = 3262) n/a Negative - Negati ve POCT U PROT (test code = 3259) negative Negative - Negat fran POCT U GLU (test code = 3256) negative Negative - Negati ve POCT U KETONE (test code = 3258) n/a Negative - Neg ative POCT U BLD (test code = 3257) n/a Negative - Negati ve [facility] URINALYSIS W/O SPECIFIC [id number] 17:07:00* Test Item Value Reference Range Interpretation Comme nts POCT PH U (test code = 3254) n/a 5-8 POCT U LEUK EST (test code = 3263) n/a Negative - N egative POCT U NIT (test code = 3262) n/a Negative - Negati ve POCT U PROT (test code = 3259) neg Negative - Negat fran POCT U GLU (test code = 3256) neg Negative - Negati ve POCT U KETONE (test code = 3258) n/a Negative - Neg ative POCT U BLD (test code = 3257) n/a Negative - [facility]ati ve [facility] SPECIFIC [id number] 21:23:00* Test Item Value Reference Range Interpretation Comme nts POCT PH U (test code = 3254) n/a 5-8 POCT U LEUK EST (test code = 3263) n/a Negative - N egative POCT U NIT (test code = 3262) n/a Negative - Negati ve POCT U PROT (test code = 3259) neg Negative - Negat fran POCT U GLU (test code = 3256) neg Negative - Negati ve POCT U KETONE (test code = 3258) n/a Negative - Neg ative POCT U BLD (test code = 3257) n/a Negative - [facility]ati ve [facility] SPECIFIC [id number] 15:00:00* Test Item Value Reference Range Interpretation Comme nts POCT PH U (test code = 3254) n/a 5-8 POCT U LEUK EST (test code = 3263) n/a Negative - Negative POCT U NIT (test code = 3262) n/a Negative - Negati ve POCT U PROT (test code = 3259) negative Negative - Negat fran POCT U GLU (test code = 3256) negaitve Negative - Negati ve POCT U KETONE (test code = 3258) n/a Negative - Neg ative POCT U BLD (test code = 3257) n/a Negative - Negati ve [facility]
--- NOTE | 2024-04-15 06:56 | RAD REPORT ---
EXAMINATION: XR FOOT 3 OR MORE VIEWS LEFT INDICATION: Female, 28 years old, PAIN TECHNIQUE: 3 views COMPARISON(S): None. FINDINGS: No acute fracture or dislocation. Bipartite medial hallux sesamoid with sclerotic proximal pole. No s ignificant degenerative change. Unremarkable soft tissues. IMPRESSION: 1. No acute osseous finding of the left foot. 2. Bipartite hallux sesamoid with proximal sclerosis, correlate with symptoms and physical exam. Electronically signed by: Dejan Serna MD 04/15/2024 06:50 AM [facility] Due to temporary technical issues with the PACS/Symcircle reporting system, reports are being melissa d by the in-house radiologist without review as a courtesy to ensure prompt reporting the interpreting radiologist is fully responsible for the content of the report. Transcribed Date/Time: 04/15/2024 6:56 AM
--- NOTE | 2024-04-15 07:11 | EDPHYS ---
Physician Documentation [facility] Name: Barbara Yin Age: 28 yrs Sex: Female : 1995 Arrival Date: 04/15/2024 Time: 06:00 Bed 17 Private MD: ED Physician Umair Wright HPI: 04/15 07:13 This 28 yrs old Female presents to ER via Wheelchair with complaints of Ankle ms3 Injury - Left. 07:13 Barbara Yin presents to the Emergency Department with complaints of pain in her ms3 left after missing a step. She state that the pain worsens with walking. She reports no pain at rest. She took Ibuprofen without relief of her pain. She denies any past medical history.. 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 - Infectious Disease History:: Denies. - Social history:: Smoking status: Patient denies any tobacco usage or history of. ROS: 07:13 Constitutional: Negative for fever, and chills. Cardiovascular: Negative for chest ms3 pain, and palpitations. Respiratory: Negative for shortness of breath, cough, wheezing, and pleuritic chest pain, Abdomen/GI: Negative for abdominal pain, nausea, vomiting, diarrhea, and constipation, 07:13 MS/extremity: Positive for pain, of the left foot, Exam: 07:13 Constitutional: This is a well developed, well nourished patient who is awake, alert, ms3 and in no acute distress. Chest/axilla: Normal chest wall appearance and motion. Nontender with no deformity. Cardiovascular: Regular rate and rhythm with a normal S1 and S2. No gallops, murmurs, or rubs. Normal PMI, no JVD. No pulse deficits. Respiratory: Lungs have equal breath sounds bilaterally, clear to auscultation and percussion. No rales, rhonchi or wheezes noted. No increased work of breathing, no retractions or nasal flaring. Abdomen/GI: Soft, non-tender, with normal bowel sounds. No distension or tympany. No guarding or rebound. No evidence of tenderness throughout. 07:13 Musculoskeletal/extremity: Extremities: noted in the left foot: pain, tenderness, There is no evidence of decreased ROM, ecchymosis, swelling, Vital Signs: 07:04 BP 118 / 83; Pulse 75; Resp 18; Temp 98.8; Pulse Ox 99% ; Weight 92.99 kg; Height 5 ft. vc1 6 in. ; Pain 10; 07:04 Body Mass Index 33.09 (92.99 kg, 167.64 cm) vc1 07:04 Pain Scale: Adult vc1 MDM: 06:28 Medical Screening Exam initiated ms3 07:13 Differential diagnosis: fracture, sprain. Data reviewed: vital signs, nurses notes, ms3 radiologic studies, and as a result, I will discharge patient. I considered the following discharge prescriptions or medication management in the emergency department Medications were administered in the Emergency Department. See MAR. Counseling: I had a detailed discussion with the patient and/or guardian regarding the historical points, exam findings, and any diagnostic results supporting the discharge/admit diagnosis, radiology results, the need for outpatient follow up, to return to the emergency department if symptoms worsen or persist or if there are any questions or concerns that arise at home. ED course: Discussed x-ray findings with patient. Discussed with patient if she continues to have pain in 1 week she may require additional imaging as subtle nondisplaced fractures may not appear on acute x-rays. Patient to follow-up Dr. Martinez in 2 to 3 days. Patient understands and agrees with plan. All questions were answered. Return precautions discussed include worsening symptoms, or any other concerns.. 04/15 06:13 Order name: Foot Left 3 View XRAY ms3 04/15 07:10 Order name: Post-op Orthopedic Shoe; Complete Time: 07:40 ms3 04/15 07:10 Order name: Crutches; Complete Time: 07:40 ms3 Administered Medications: 07:40 Drug: Acetaminophen PO 1000 mg PO once Route: PO; db 07:50 Follow up: Response: No adverse reaction db Disposition Summary: 04/15/24 07:10 Discharge Ordered Notes: Location: Home ms3 Condition: Stable ms3 Diagnosis - Pain in left foot ms3 Followup: ms3 - With: Henry Martinez MD - When: 2 - 3 days - Reason: Recheck today's complaints Forms: - Medication Reconciliation Form ms3 - Antibiotic Education ms3 - Prescription Opioid Use ms3 - Patient Portal Instructions ms3 - Leadership Thank You Letter ms3 Signatures: Dispatcher [employer] EDMS Umair Wright DO DO ms3 Debbie Hodge RN RN vc1 Zora Philip RN RN db Corrections: (The following items were deleted from the chart) 06:23 06:05 Ankle Left 3 View+RAD.RAD.BRZ ordered. EDMS EDMS
--- NOTE | 2024-04-15 07:11 | ER ---
Nurse's Notes [facility] Name: Barbara Yin Age: 28 yrs Sex: Female : 1995 Arrival Date: 04/15/2024 Time: 06:00 Bed 17 Private MD: Diagnosis: Pain in left foot Presentation: 04/15 07:04 Chief complaint: Patient states: missed a step and having left ankle pain. Coronavirus vc1 screen: Client denies travel out of the [place] in the last 14 days. At this time, the client does not indicate any symptoms associated with coronavirus-19. Ebola Screen: Patient negative for fever greater than or equal to 101.5 degrees Fahrenheit, and additional compatible Ebola Virus Disease symptoms Patient denies exposure to infectious person. Patient denies travel to an Ebola-affected area in the 21 days before illness onset. No symptoms or risks identified at this time. Initial Sepsis Screen: Does the patient meet any 2 criteria? No. Patient's initial sepsis screen is negative. Does the patient have a suspected source of infection? No. Patient's initial sepsis screen is negative. Risk Assessment: Do you want to hurt yourself or someone else? Patient reports no desire to harm self or others. Onset of symptoms was April 15, 2024 at 02:00. Care prior to arrival: None. Activity prior to arrival: None. 07:04 Method Of Arrival: Wheelchair vc1 07:04 Acuity: CYNDIE 4 vc1 Triage Assessment: 07:08 General: Appears in no apparent distress. uncomfortable, Behavior is calm, cooperative, vc1 appropriate for age. Pain: Complains of pain in left lateral ankle and left medial ankle. Pain: Pain currently is 0 out of 10 on a pain scale. at worst was 10 out of 10 on a pain scale. Aggravated by increased activity, repositioning, weight bearing. EENT: No deficits noted. No signs and/or symptoms were reported regarding the EENT system. Neuro: Level of Consciousness is awake, alert, obeys commands, Oriented to person, place, time, situation, Appropriate for age. Cardiovascular: Capillary refill < 3 seconds Patient's skin is warm and dry. Respiratory: Airway is patent Respiratory effort is even, unlabored, Respiratory pattern is regular, symmetrical. GI: No deficits noted. No signs and/or symptoms were reported involving the gastrointestinal system. : No deficits noted. No signs and/or symptoms were reported regarding the genitourinary system. Derm: No deficits noted. No signs and/or symptoms reported regarding the dermatologic system. Musculoskeletal: Circulation, motion, and sensation intact. Reports pain in left lateral ankle and left medial ankle. 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 - Infectious Disease History:: Denies. - Social history:: Smoking status: Patient denies any tobacco usage or history of. Screenin:07 [facility] ED Fall Risk Assessment (Adult) History of falling in the last 3 months, vc1 including since admission No falls in past 3 months (0 pts) Confusion or Disorientation No (0 pts) Intoxicated or Sedated No (0 pts) Impaired Gait Yes (1 pt) Mobility Assist Device Used No (0 pt) Altered Elimination No (0 pt) Score/Fall Risk Level 0 - 2 = Low Risk Oriented to surroundings, Maintained a safe environment, Educated pt \T\ family on fall prevention, incl call for assistance when getting out of bed. Abuse screen: Denies threats or abuse. Nutritional screening: No deficits noted. Tuberculosis screening: No symptoms or risk factors identified. Assessment: 07:48 Reassessment: Patient appears in no apparent distress at this time. Patient and/or db family updated on plan of care and expected duration. Pain level reassessed. Patient is alert, oriented x 3, equal unlabored respirations, skin warm/dry/pink. General: Appears in no apparent distress. comfortable, Behavior is calm, cooperative. Pain: Complains of pain in left foot and left medial ankle and left lateral ankle. Neuro: Level of Consciousness is awake, alert, obeys commands, Oriented to person, place, time, situation. Respiratory: Airway is patent Respiratory effort is even, unlabored, Respiratory pattern is regular, symmetrical. Musculoskeletal: Circulation, motion, and sensation intact. Range of motion: intact in all extremities. Vital Signs: 07:04 BP 118 / 83; Pulse 75; Resp 18; Temp 98.8; Pulse Ox 99% ; Weight 92.99 kg; Height 5 ft. vc1 6 in. ; Pain 10/10; 07:04 Body Mass Index 33.09 (92.99 kg, 167.64 cm) vc1 07:04 Pain Scale: Adult vc1 ED Course: 06:03 Patient arrived in ED. ra3 06:05 Umair Wright DO is Attending Physician. ms3 06:23 Foot Left 3 View XRAY In Process Unspecified. EDMS 07:06 Triage completed. vc1 07:06 Arm band placed on right wrist. vc1 07:08 Patient has correct armband on for positive identification. vc1 07:10 Henry Beck MD is Referral Physician. ms3 07:28 Zora Philip, RN is Primary Nurse. db 07:48 Provided Education on: CRUTCHES, DISCHARGE AND FOLLOWUP. Pillow given. db 07:48 No provider procedures requiring assistance completed. Patient did not have IV access db during this emergency room visit. Crutch training done. Ortho shoe applied to left foot. Administered Medications: 07:40 Drug: Acetaminophen PO 1000 mg PO once Route: PO; db 07:50 Follow up: Response: No adverse reaction db Medication: 07:08 VIS not applicable for this client. vc1 Outcome: 07:10 Discharge ordered by . ms3 07:48 Discharged to home ambulatory, db 07:48 Condition: stable 07:48 Discharge instructions given to patient, Instructed on discharge instructions, follow up and referral plans. 07:50 Patient left the ED. db Signatures: Dispatcher [employer] EDMS Umair Wright DO DO ms3 Debbie Hodge, RN RN vc1 Zora Philip, RN RN Marcia Lambert ra3
[2024-04-15] MEDS ORDERED: ACETAMINOPHEN 500 MG TAB ONE (07:37)
[2024-04-15 07:55] VITALS: BP 118/83; TEMP 98.8; O2SAT 99
== END 2024-04-15 07:50 | disposition home or self-care (01) ==
LOC: ER 06:00
DX: M79.672 Pain in left foot (principal)
CPT/HCPCS: 99283